=== PATIENT | female | born 1980 | race Caucasian/White ===

== ENCOUNTER 2017-12-25 08:29 | Day surgery (SDC) | payer BC ==
[~2017-12-25 08:29] MED LIST: Lactated Ringers 1,000 ML IV SCH; Sodium Chloride 0.9% 10 ML Syringe FLUSH PRN; Sodium Chloride 0.9% 2.5 ML Syringe FLUSH PRN
--- NOTE | 2017-12-25 09:02 | PCM.PREANE ---
Preanesthetic Assessment - Anesthesia/Transfusion/Family Hx Anesthesia History: Prior Anesthesia Without Reaction Family History of Anesthesia Reaction: No Transfusion History: No Prior Transfusion(s) Intubation History: Unknown - Review of Systems General: No Symptoms Pulmonary: No Symptoms Cardiovascular: No Symptoms Gastrointestinal: No Symptoms Neurological: No Symptoms Other: Reports: None - Physical Assessment Height: 1.75 m Weight: 99.79 kg ASA Class: 2 Mental Status: Alert & Oriented x3 Airway Class: Mallampati = 2 Dentition: Reports: Normal Dentition Thyro-Mental Finger Breadths: 3 Mouth Opening Finger Breadths: 3 ROM/Head Extension: Full Lungs: Clear to Auscultation, Normal Respiratory Effort Cardiovascular: Regular Rate, Regular Rhythm - Allergies Allergies/Adverse Reactions: Allergies Allergy/AdvReac Type Severity Reaction Status Date / Time cephalexin [From Keflex] Allergy Rash Verified 12/22/17 14:29 Sulfa (Sulfonamide Allergy Rash Verified 12/22/17 14:29 Antibiotics) - Blood Blood Available: No - Anesthesia Plan Pre-Op Medication Ordered: None - Acknowledgements Anesthesia Type Planned: General Anesthesia Pt an Appropriate Candidate for the Planned Anesthesia: Yes Alternatives and Risks of Anesthesia Discussed w Pt/Guardian: Yes Pt/Guardian Understands and Agrees with Anesthesia Plan: Yes PreAnesthesia Questionnaire Neurological History: Reports: Other (See Below) Other Neuro History: was in a drug induced coma for a week to correct electrolyte imbalance from water intoxication Endocrine/Metabolic History: Reports: Obesity/BMI 30+, Other (See Below) (h/o hypoglycemic episodes post gastric bypass (glucose levels as low as 30)) - Past Surgical History Head Surgeries/Procedures: Reports: None GI Surgical History: Reports: Bariatric Procedure Musculoskeletal Surgical History: Reports: Other (See Below) Other Musculoskeletal Surgeries/Procedures:: ACL Repair right knee (has screw) plus arthroscopy to repair meniscus tear - SUBSTANCE USE Smoking Status *Q: Never Smoker Recreational Drug Use History: No - HOME MEDS Home Medications: Home Meds Calcium Carbonate [Calcium] 500 mg PO DAILY 12/22/17 [History] Cyanocobalamin (Vitamin B-12) [Vitamin B-12] 100 mcg PO DAILY 12/22/17 [History] PNV95/Ferrous Fumarate/FA [ Tablet] 1 tab PO DAILY 12/22/17 [History] - CURRENT (IN HOUSE) MEDS Current Meds: Current Medications Lactated Ringer's (Ringers, Lactated) 1,000 mls @ 125 mls/hr IV ASDIRECTED DONTE Sodium Chloride (Saline Flush) 10 ml FLUSH ASDIRECTED PRN PRN Reason: Keep Vein Open Sodium Chloride (Saline Flush) 2.5 ml FLUSH ASDIRECTED PRN PRN Reason: Keep Vein Open
[2017-12-25] MEDS ORDERED: Lidocaine 2% 5 ML SDV ONE (09:37)
[2017-12-25] MEDS ORDERED: Propofol 200 MG/20 ML SDV ONE (09:37)
[2017-12-25] MEDS ORDERED: fentaNYL 100 MCG/2 ML SDV ONE ×2 (09:37→10:48)
[2017-12-25] MEDS ORDERED: Midazolam 1 MG/ML 2 ML SDV ONE (09:37)
[2017-12-25] MEDS ORDERED: Carboprost Tromethamine 250 MCG/1 ML Amp ONE (10:40)
[2017-12-25] MEDS ORDERED: Methylergonovine 0.2 MG/1 ML Amp ONE (10:41)
[2017-12-25] MEDS ORDERED: Ondansetron 4 MG/2 ML SDV ONE (10:44)
[2017-12-25] MEDS ORDERED: Morphine 4 MG/ML Syringe IVPUSH PRN (10:55)
[2017-12-25] MEDS ORDERED: Promethazine 25 MG/ML SDV IM PRN (10:55)
[2017-12-25] MEDS ORDERED: Acetaminophen/oxyCODONE 325-5 MG Tab PO PRN ×2 (10:55)
[2017-12-25] MEDS ORDERED: Morphine 2 MG/ML Syringe IVPUSH PRN (10:55)
[2017-12-25] MEDS ORDERED: Ondansetron 4 MG/2 ML SDV IVPUSH PRN (10:55)
[2017-12-25] MEDS ORDERED: Ketorolac 30 MG/ML SDV IVPUSH PRN (10:55)
[2017-12-25] MEDS ORDERED: Ketorolac 30 MG/ML SDV IVPUSH ONE (10:55)
--- NOTE | 2017-12-25 10:58 | PCM.OPNOTE ---
- General Post-Op/Procedure Note Date of Surgery/Procedure: 12/25/17 Operative Procedure(s): D&E Findings: POC Pre Op Diagnosis: blighted ovum Post-Op Diagnosis: Same Anesthesia Technique: General Mask Primary Surgeon: Paul Jimenez Hydropulper: Tiffanie Kirk EBL in mLs: 150 Complications: None Condition: Good
--- NOTE | 2017-12-25 10:59 | PCM.DCSUM1 ---
Discharge Summary - Discharge Data Discharge Date: 12/25/17 Discharge Disposition: Home, Self-Care 01 Condition: Good - Patient Summary/Data Operative Procedure(s) Performed: D&E - Patient Instructions Diet: Usual Diet as Tolerated Activity: As Tolerated Showering/Bathing: March Shower Notify Provider of: Fever, Increased Pain - Discharge Plan Home Medications: Home Meds Calcium Carbonate [Calcium] 500 mg PO DAILY 12/22/17 [History] Cyanocobalamin (Vitamin B-12) [Vitamin B-12] 100 mcg PO DAILY 12/22/17 [History] PNV95/Ferrous Fumarate/FA [ Tablet] 1 tab PO DAILY 12/22/17 [History] - General Info Date of Service: 12/25/17 Functional Status: Reports: Pain Controlled - Review of Systems General: Reports: No Symptoms HEENT: Reports: No Symptoms Pulmonary: Reports: No Symptoms Cardiovascular: Reports: No Symptoms Gastrointestinal: Reports: No Symptoms Genitourinary: Reports: No Symptoms Musculoskeletal: Reports: No Symptoms Skin: Reports: No Symptoms Neurological: Reports: No Symptoms Psychiatric: Reports: No Symptoms - Patient Data Vitals - Most Recent: Last Vital Signs Temp 37.4 C 12/25/17 08:50 Pulse 76 12/25/17 08:50 Resp 16 12/25/17 08:50 BP 113/63 12/25/17 08:50 Pulse Ox 99 12/25/17 08:50 Weight - Most Recent: 99.79 kg Lab Results - Last 24 hrs: Laboratory Results - last 24 hr 12/25/17 12/25/17 Range/Units 09:00 09:00 WBC 6.93 (4.0-11.0) K/uL RBC 4.92 (4.30-5.90) M/uL Hgb 14.1 (12.0-16.0) g/dL Hct 42.0 (36.0-46.0) % MCV 85.4 (80.0-98.0) fL MCH 28.7 (27.0-32.0) pg MCHC 33.6 (31.0-37.0) g/dL RDW Std Deviation 49.6 (28.0-62.0) fl RDW Coeff of Ga 16 H (11.0-15.0) % Plt Count 320 (150-400) K/uL MPV 9.90 (7.40-12.00) fL Nucleated RBC % 0.0 /100WBC Nucleated RBCs # 0 K/uL Blood Type O POSITIVE Antibody Screen NEGATIVE Med Orders - Current: Current Medications Lactated Ringer's (Ringers, Lactated) 1,000 mls @ 125 mls/hr IV ASDIRECTED DONTE Ketorolac Tromethamine (Toradol) 30 mg IVPUSH ONETIME ONE Stop: 12/25/17 10:56 Ketorolac Tromethamine (Toradol) 30 mg IVPUSH Q6H PRN PRN Reason: Pain (severe 7-10) Stop: 12/30/17 10:55 Morphine Sulfate (Morphine) 2 mg IVPUSH Q2H PRN PRN Reason: Pain (severe 7-10) Morphine Sulfate (Morphine) 4 mg IVPUSH Q2H PRN PRN Reason: Pain (severe 7-10) Ondansetron HCl (Zofran) 4 mg IVPUSH Q6H PRN PRN Reason: Nausea/Vomiting Oxycodone/Acetaminophen (Percocet 325-5 Mg) 1 tab PO Q4H PRN PRN Reason: Pain (moderate 4-6) Oxycodone/Acetaminophen (Percocet 325-5 Mg) 2 tab PO Q4H PRN PRN Reason: Pain (moderate 4-6) Promethazine HCl (Phenergan) 25 mg IM Q6H PRN PRN Reason: Nausea/Vomiting Sodium Chloride (Saline Flush) 10 ml FLUSH ASDIRECTED PRN PRN Reason: Keep Vein Open Sodium Chloride (Saline Flush) 2.5 ml FLUSH ASDIRECTED PRN PRN Reason: Keep Vein Open Discontinued Medications Carboprost Tromethamine (Hemabate Ds) Confirm Administered Dose 250 mcg .ROUTE .STK-MED ONE Stop: 12/25/17 10:41 Fentanyl (Sublimaze) Confirm Administered Dose 100 mcg .ROUTE .STK-MED ONE Stop: 12/25/17 09:38 Fentanyl (Sublimaze) Confirm Administered Dose 100 mcg .ROUTE .STK-MED ONE Stop: 12/25/17 10:49 Lidocaine (Xylocaine-Mpf 2%) Confirm Administered Dose 5 ml .ROUTE .STK-MED ONE Stop: 12/25/17 09:38 Methylergonovine Maleate (Methergine) Confirm Administered Dose 0.2 mg .ROUTE .STK-MED ONE Stop: 12/25/17 10:42 Midazolam HCl (Versed 1 Mg/Ml) Confirm Administered Dose 2 mg .ROUTE .STK-MED ONE Stop: 12/25/17 09:38 Ondansetron HCl (Zofran) Confirm Administered Dose 4 mg .ROUTE .STK-MED ONE Stop: 12/25/17 10:45 Propofol (Diprivan 20 Ml) Confirm Administered Dose 200 mg .ROUTE .STK-MED ONE Stop: 12/25/17 09:38 - Exam General: Reports: Alert, Oriented HEENT: Reports: Pupils Equal, Pupils Reactive, EOMI, Mucous Membr. Moist/[place] Neck: Reports: Supple Lungs: Reports: Clear to Auscultation, Normal Respiratory Effort Cardiovascular: Reports: Regular Rate, Regular Rhythm GI/Abdominal Exam: Normal Bowel Sounds, Soft, Non-Tender, No Organomegaly, No Distention, No Abnormal Bruit, No Mass, Pelvis Stable (Female) Exam: Normal External Exam, Normal Speculum Exam, Normal Bimanual Exam Rectal (Female) Exam: Normal Exam, Normal Rectal Tone Back Exam: Reports: Normal Inspection, Full Range of Motion Extremities: Normal Inspection, Normal Range of Motion, Non-Tender, No Pedal Edema, Normal Capillary Refill Skin: Reports: Warm, Dry, Intact Wound/Incisions: Reports: Healing Well Neurological: Reports: No New Focal Deficit Psy/Mental Status: Reports: Alert, Normal Affect, Normal Mood *Q Meaningful Use (DIS) - VTE *Q VTE Criteria *Q: - Stroke *Q Stroke Criteria *Q: - AMI *Q AMI Criteria *Q:
--- NOTE | 2017-12-25 11:22 | PCM.POSTAN ---
POST ANESTHESIA ASSESSMENT - MENTAL STATUS Mental Status: Alert, Oriented - RESPIRATORY Respiratory Status: Respiratory Rate WNL, Airway Patent, O2 Saturation Stable - CARDIOVASCULAR CV Status: Pulse Rate WNL, Blood Pressure Stable - GASTROINTESTINAL GI Status: No Symptoms - PAIN Pain Score: 1 - POST OP HYDRATION Hydration Status: Adequate & Stable - OBSERVATIONS Free Text/Narrative:: no anesthesia problems
--- NOTE | 2017-12-25 15:38 | OR ---
SURGEON: Paul Jimenez MD DATE OF PROCEDURE: PREOPERATIVE DIAGNOSIS: Blighted ovum. POSTOPERATIVE DIAGNOSES: Blighted ovum. OPERATION PERFORMED: Dilatation and evacuation. ICT TRAINER: ARVIND Kuo ANESTHESIA: Mask and general. ESTIMATED BLOOD LOSS: 100 mL. COMPLICATIONS: None. FINDINGS: Products of conception. INDICATION FOR SURGERY: [place] referred to the admit note. This patient had a repeated ultrasound which shows pole with no cardiac activity. The patient has diagnosis of blighted ovum. She is admitted for dilatation and evacuation. PROCEDURE: The patient brought to the OR, properly identified, and after adequate level of mask anesthesia, the patient was placed in lithotomy position, prepped and draped in sterile fashion as usual. A weighted speculum placed in the vagina and straight catheter was used to enter the bladder. The single-tooth tenaculum was applied to the cervix and the cervix sequentially dilated to accommodate #8 cannula. The cannula was placed in the endometrial cavity and then hooked to suction and suction curettage was performed evacuating all products of conception. After that, using a medium-sized curette, the endometrial cavity curetted uniformly and completely making sure that all products of conception were removed. Once we did that and then re-suctioning of the endometrial cavity from remaining blood clot and at this time the procedure ended. The instrument and sponge count was correct. The patient tolerated the procedure well went to recovery room in stable general condition. JESSIE / BERTHA /[id number]
== END 2017-12-25 12:45 | disposition home or self-care (01) ==
LOC: MW.SDS 08:29
PROVIDERS: ATTEND Obstetrics & Gynecology
DX: O02.0 Blighted ovum and nonhydatidiform mole (principal); E66.9 Obesity, unspecified; Z79.899 Other long term (current) drug therapy; Z88.2 Allergy status to sulfonamides; Z88.1 Allergy status to other antibiotic agents; Z98.84 Bariatric surgery status; Z68.32 Body mass index [BMI] 32.0-32.9, adult
CPT/HCPCS: 36415; 59820; 85027; 86850; 86900; 86901; A9270; J2250; J2270; J2405; J3010; J7120; 01965; 88305; J2210; J2704

== ENCOUNTER 2019-02-14 21:21 | Inpatient (IN) | payer BC, OTHER ==
[2019-02-14] MEDS ORDERED: Terbutaline 1 MG/ML SDV SUBCUT PRN (22:17)
[2019-02-14] MEDS ORDERED: Misoprostol 200 MCG Tab PO PRN (22:17)
[2019-02-14] MEDS ORDERED: Carboprost Tromethamine 250 MCG/1 ML Amp IM PRN (22:17)
[2019-02-14] MEDS ORDERED: Tranexamic Acid 1,000 MG in Sodium Chloride 0.9% 100 ML IV PRN (22:17)
[2019-02-14] MEDS ORDERED: Ondansetron 4 MG/2 ML SDV IV PRN (22:17)
[2019-02-14] MEDS ORDERED: Methylergonovine 0.2 MG/1 ML Amp IM PRN (22:17)
[2019-02-14] MEDS ORDERED: Sodium Chloride 0.9% 10 ML SDV IV PRN (22:17)
[2019-02-14] MEDS ORDERED: Water For Irrigation,Sterile 1,000 ML Container IRR PRN (22:17)
[2019-02-14] MEDS ORDERED: Nalbuphine 10 MG/1 ML Vial IVPUSH PRN (22:17)
[2019-02-14] MEDS ORDERED: Misoprostol 25 MCG (1/4 of 100 MCG) Tab VAG PRN (22:17)
[2019-02-14] MEDS ORDERED: Lidocaine 1% 50 ML MDV INJECT PRN (22:17)
[2019-02-14] MEDS ORDERED: Sodium Chloride 0.9% 10 ML Syringe FLUSH PRN (22:17)
[2019-02-14] MEDS ORDERED: Oxytocin/0.9 % Sodium Chloride 30 UNIT/500 ML BAG IV SCH ×2 (22:30)
[2019-02-14] MEDS: Misoprostol 25 MCG (1/4 of 100 MCG) Tab PO SCH (23:27)
[2019-02-14] MEDS: Misoprostol 25 MCG (1/4 of 100 MCG) Tab VAG PRN (23:27)
[2019-02-15] MEDS: Misoprostol 25 MCG (1/4 of 100 MCG) Tab PO SCH (03:35)
[2019-02-15] MEDS: Misoprostol 25 MCG (1/4 of 100 MCG) Tab VAG PRN (03:36)
[2019-02-15] MEDS: Lactated Ringers 1,000 ML IV SCH ×2 (04:40→08:20)
[2019-02-15] MEDS ORDERED: Lidocaine HCl/EPINEPHrine 5 ML IJ ONE (06:49)
--- NOTE | 2019-02-15 06:56 | PCM.LDHP ---
L&D History of Present Illness - General Date of Service: 02/15/19 Admit Problem/Dx: Patient Status Order with Admit Dx/Problem 02/14/19 22:17 Patient Status [ADT] Routine Admission Diagnosis/Problem Admission Diagnosis/Problem -related examination 02/15/19 06:53 VariZIG Source of Information: Patient History Limitations: Reports: No Limitations - History of Present Illness Pain Score: 8 Improves with: Reports: None Worsens with: Reports: None Associated Symptoms: Reports: N - Related Data Allergies/Adverse Reactions: Allergies Allergy/AdvReac Type Severity Reaction Status Date / Time cephalexin [From Keflex] Allergy Rash Verified 12/22/17 14:29 Sulfa (Sulfonamide Allergy Rash Verified 12/22/17 14:29 Antibiotics) Home Medications: Home Meds Calcium Carbonate [Calcium] 500 mg PO DAILY 12/22/17 [History] Cyanocobalamin (Vitamin B-12) [Vitamin B-12] 100 mcg PO DAILY 12/22/17 [History] PNV95/Ferrous Fumarate/FA [ Tablet] 1 tab PO DAILY 12/22/17 [History] Past Medical History - Past Health History Medical/Surgical History: Denies Medical/Surgical History 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: Reports: , Spontaneous Neurological History: Reports: Other (See Below) Other Neuro History: was in a drug induced coma for a week to correct electrolyte imbalance from water intoxication Psychiatric History: Reports: Depression Endocrine/Metabolic History: Reports: Obesity/BMI 30+, Other (See Below) - Past Surgical History Head Surgeries/Procedures: Reports: None GI Surgical History: Reports: Bariatric Procedure Musculoskeletal Surgical History: Reports: Other (See Below) Other Musculoskeletal Surgeries/Procedures:: ACL Repair right knee (has screw) plus arthroscopy to repair meniscus tear Social & Family History - Family History Family Medical History: Noncontributory - Tobacco Use Smoking Status *Q: Never Smoker Second Hand Smoke Exposure: No - Recreational Drug Use Recreational Drug Use: No H&P Review of Systems - Review of Systems: Review Of Systems: See Below General: Reports: No Symptoms HEENT: Reports: No Symptoms Pulmonary: Reports: No Symptoms Cardiovascular: Reports: No Symptoms Gastrointestinal: Reports: No Symptoms Genitourinary: Reports: No Symptoms Musculoskeletal: Reports: No Symptoms Skin: Reports: No Symptoms Psychiatric: Reports: No Symptoms Neurological: Reports: No Symptoms Hematologic/Lymphatic: Reports: No Symptoms Immunologic: Reports: No Symptoms L&D Exam - Exam Exam: See Below - Vital Signs Weight: 122.47 kg - OB Specific Contraction Intensity: Moderate to Strong Movement: Active Heart Tones: Present Heart Tones per Min: 130 Heart Rate (FHR) Variability: Moderate (6-25 bmp) Presentation: Vertex - Red Score Red Score Cervix Position: Midposition Red Score Consistency: Soft Red Score Effacement: 51-70% Red Score Dilation: 3-4 cm Red Score 's Station: -2 Red Score Total: 8 - Exam General: Alert, Oriented HEENT: Hearing Intact Lungs: Clear to Auscultation, Normal Respiratory Effort Cardiovascular: Regular Rate, Regular Rhythm, Normal S1, Normal S2 GI/Abdominal Exam: Soft, Non-Tender Rectal Exam: Deferred Genitourinary: Normal external exam, Cervical dilitation. No: Cervical fluid, Vaginal bleeding Back Exam: Normal Inspection, Full Range of Motion Extremities: Normal Inspection, Normal Range of Motion, Non-Tender Skin: Warm, Dry, Intact Neurological: Cranial Nerves Intact, Reflexes Equal Bilateral, Strength Equal Bilateral, Normal Speech, Normal Tone, Sensation Intact Psychiatric: Alert, Normal Affect, Normal Mood - Patient Data Lab Results Last 24 hrs: Laboratory Results - last 24 hr 02/14/19 02/14/19 Range/Units 22:33 22:33 WBC 9.29 (4.0-11.0) K/uL RBC 4.30 (4.30-5.90) M/uL Hgb 13.2 (12.0-16.0) g/dL Hct 38.7 (36.0-46.0) % MCV 90.0 (80.0-98.0) fL MCH 30.7 (27.0-32.0) pg MCHC 34.1 (31.0-37.0) g/dL RDW Std Deviation 43.5 (28.0-62.0) fl RDW Coeff of Ga 13 (11.0-15.0) % Plt Count 252 (150-400) K/uL MPV 10.80 (7.40-12.00) fL Nucleated RBC % 0.0 /100WBC Nucleated RBCs # 0 K/uL Blood Type O POSITIVE Antibody Screen NEGATIVE Result Diagrams: 02/14/19 22:33 - Problem List (1) Supervision of normal IUP (intrauterine ) in multigravida SNOMED Code(s): 064835987, 208794723, 251032521 ICD Code: Z34.80 - ENCOUNTER FOR SUPRVSN OF NORMAL , UNSP TRIMESTER Status: Acute Priority: High Current Visit: Yes Qualifiers: Trimester: third trimester Qualified Code(s): Z34.83 - Encounter for supervision of other normal , third trimester (2) AMA (advanced maternal age) multigravida 35+ SNOMED Code(s): 047642524 ICD Code: O09.529 - SUPERVISION OF ELDERLY MULTIGRAVIDA, UNSPECIFIED TRIMESTER Status: Acute Priority: High Current Visit: Yes Qualifiers: Trimester: third trimester Qualified Code(s): O09.523 - Supervision of elderly multigravida, third trimester Problem List Initiated/Reviewed/Updated: Yes Orders Last 24hrs: Active Orders 24 hr Category Date Time Status Patient Status [ADT] Routine ADT 02/14/19 22:17 Active Bedrest Bathroom Privileges [RC] ASDIRECTED Care 02/14/19 22:17 Active Communication Order [RC] ASDIRECTED Care 02/14/19 22:17 Active Communication Order [RC] ASDIRECTED Care 02/14/19 22:17 Active Communication Order [RC] ASDIRECTED Care 02/14/19 22:17 Active Heart Tones [RC] CONTINUOUS Care 02/14/19 22:17 Active Non Stress Test [RC] PER UNIT ROUTINE Care 02/14/19 22:17 Active May Shower [RC] ASDIRECTED Care 02/14/19 22:17 Active Notify Provider [RC] PRN Care 02/14/19 22:17 Active Notify Provider [RC] PRN Care 02/14/19 22:17 Active Notify Provider [RC] PRN Care 02/14/19 22:17 Active Notify Provider [RC] STAT Care 02/14/19 22:17 Active Oxygen Therapy [RC] ASDIRECTED Care 02/14/19 22:17 Active Up ad Raven [RC] ASDIRECTED Care 02/14/19 22:17 Active Vaginal Exam [RC] PRN Care 02/14/19 22:17 Active Vaginal Exam [RC] PRN Care 02/14/19 22:17 Active Vital Signs [RC] PER UNIT ROUTINE Care 02/14/19 22:17 Active Vital Signs [RC] PER UNIT ROUTINE Care 02/14/19 22:17 Active Regular Diet [DIET] Diet 02/15/19 Breakfast Active Carboprost Tromethamine [Hemabate DS] Med 02/14/19 22:17 Active 250 mcg IM ASDIRECTED PRN Lactated Ringers [Ringers, Lactated] 1,000 ml Med 02/14/19 22:30 Active IV ASDIRECTED Lidocaine 1% [Xylocaine 1%] Med 02/14/19 22:17 Active 50 ml INJECT ONETIME PRN Methylergonovine [Methergine] Med 02/14/19 22:17 Active 0.2 mg IM ASDIRECTED PRN Nalbuphine [Nubain] Med 02/14/19 22:17 Active 10 mg IVPUSH Q1H PRN Ondansetron [Zofran] Med 02/14/19 22:17 Active 4 mg IV Q4H PRN Oxytocin/0.9 % Sodium Chloride [Oxytocin 30 Unit/500 ML Med 02/14/19 22:30 Active -NS] 30 unit in 500 ml IV TITRATE Oxytocin/0.9 % Sodium Chloride [Oxytocin 30 Unit/500 ML Med 02/14/19 22:30 Active -NS] 30 unit in 500 ml IV TITRATE Sodium Chloride 0.9% [Normal Saline] Med 02/14/19 22:17 Active 10 ml IV ASDIRECTED PRN Sodium Chloride 0.9% [Saline Flush] Med 02/14/19 22:17 Active 10 ml FLUSH ASDIRECTED PRN Terbutaline [Brethine] Med 02/14/19 22:17 Active 0.25 mg SUBCUT ASDIRECTED PRN Tranexamic Acid [Cyklokapron] 1,000 mg Med 02/14/19 22:17 Active Sodium Chloride 0.9% [Normal Saline] 100 ml IV ONETIME Water For Irrigation,Sterile [Sterile Water for Med 02/14/19 22:17 Active Irrigation] 1,000 ml IRR ASDIRECTED PRN miSOPROStol [Cytotec] Med 02/14/19 22:17 Active 200 mcg PO ONETIME PRN miSOPROStol [Cytotec] Med 02/14/19 23:00 Active 25 mcg PO Q4H miSOPROStol [Cytotec] Med 02/14/19 22:17 Active 25 mcg VAG ONETIME PRN miSOPROStol [Cytotec] Med 02/14/19 22:17 Active 25 mcg VAG Q4H PRN Scalp Electrode [WOMSER] Per Unit Routine Oth 02/14/19 22:17 Ordered Medication Administration Instruction [OM.PC] Q3H Oth 02/14/19 22:30 Ordered Peripheral IV Insertion Adult [OM.PC] Routine Oth 02/14/19 22:17 Ordered Resuscitation Status Routine Resus Stat 02/14/19 22:17 Ordered Medication Orders Carboprost Tromethamine (Hemabate Ds) 250 mcg IM ASDIRECTED PRN PRN Reason: Post Hemorrhage Lactated Ringer's (Ringers, Lactated) 1,000 mls @ 150 mls/hr IV ASDIRECTED DONTE Last Admin: 02/15/19 04:40 Dose: 150 mls/hr Oxytocin/Sodium Chloride (Oxytocin 30 Unit/500 Ml-Ns) 30 unit in 500 mls @ 999 mls/hr IV TITRATE DONTE Oxytocin/Sodium Chloride (Oxytocin 30 Unit/500 Ml-Ns) 30 unit in 500 mls @ 2 mls/hr IV TITRATE DONTE; Protocol Tranexamic Acid 1,000 mg/ (Sodium Chloride) 110 mls @ 660 mls/hr IV ONETIME PRN PRN Reason: Bleeding Lidocaine HCl (Xylocaine 1%) 50 ml INJECT ONETIME PRN PRN Reason: Laceration repair Methylergonovine Maleate (Methergine) 0.2 mg IM ASDIRECTED PRN PRN Reason: Post Hemorrhage Misoprostol (Cytotec) 200 mcg PO ONETIME PRN PRN Reason: Post Hemorrhage Misoprostol (Cytotec) 25 mcg VAG ONETIME PRN PRN Reason: Cervical Ripening Last Admin: 02/14/19 23:27 Dose: 25 mcg Misoprostol (Cytotec) 25 mcg VAG Q4H PRN PRN Reason: Cervical Ripening Last Admin: 02/15/19 03:36 Dose: 25 mcg Misoprostol (Cytotec) 25 mcg PO Q4H DONTE Last Admin: 02/15/19 03:35 Dose: 25 mcg Admin: 02/14/19 23:27 Dose: 25 mcg Nalbuphine HCl (Nubain) 10 mg IVPUSH Q1H PRN PRN Reason: Pain (severe 7-10) Last Admin: 02/15/19 05:10 Dose: 10 mg Ondansetron HCl (Zofran) 4 mg IV Q4H PRN PRN Reason: Nausea/Vomiting Sodium Chloride (Saline Flush) 10 ml FLUSH ASDIRECTED PRN PRN Reason: Keep Vein Open Last Admin: 02/14/19 22:33 Dose: 10 ml Sodium Chloride (Normal Saline) 10 ml IV ASDIRECTED PRN PRN Reason: IV Use Sterile Water (Sterile Water For Irrigation) 1,000 ml IRR ASDIRECTED PRN PRN Reason: delivery Terbutaline Sulfate (Brethine) 0.25 mg SUBCUT ASDIRECTED PRN PRN Reason: Tacysystole Assessment/Plan Comment:: GLORIA A: Reji P: Admit, epidural now, anticipate . Dr Jimenez updated
--- NOTE | 2019-02-15 07:14 | PCM.PREANE ---
Preanesthetic Assessment - Anesthesia/Transfusion/Family Hx Anesthesia History: Prior Anesthesia Without Reaction Family History of Anesthesia Reaction: No Transfusion History: No Prior Transfusion(s) Intubation History: Unknown - Review of Systems General: No Symptoms Pulmonary: No Symptoms Cardiovascular: No Symptoms Gastrointestinal: No Symptoms Neurological: No Symptoms Other: Reports: None - Physical Assessment Height: 5 ft 9 in Weight: 122.47 kg ASA Class: 2 Mental Status: Alert & Oriented x3 Airway Class: Mallampati = 2 Dentition: Reports: Normal Dentition ROM/Head Extension: Full Lungs: Clear to Auscultation, Normal Respiratory Effort Cardiovascular: Regular Rate, Regular Rhythm - Lab Values: Laboratory Last Values WBC 9.29 K/uL (4.0-11.0) 02/14/19 22: RBC 4.30 M/uL (4.30-5.90) 02/14/19 22: Hgb 13.2 g/dL (12.0-16.0) 02/14/19 22: Hct 38.7 % (36.0-46.0) 02/14/19 22: MCV 90.0 fL (80.0-98.0) 02/14/19 22: MCH 30.7 pg (27.0-32.0) 02/14/19 22: MCHC 34.1 g/dL (31.0-37.0) 02/14/19 22:33 RDW Std Deviation 43.5 fl (28.0-62.0) 02/14/19 22:33 RDW Coeff of Ga 13 % (11.0-15.0) 02/14/19 22: Plt Count 252 K/uL (150-400) 02/14/19 22: MPV 10.80 fL (7.40-12.00) 02/14/19 22: Nucleated RBC % 0.0 /100WBC 02/14/19: Nucleated RBCs # 0 K/uL 02/14/19 22:33 Blood Type O POSITIVE 02/14/19 22:33 Antibody Screen NEGATIVE 02/14/19 22:33 - Allergies Allergies/Adverse Reactions: Allergies Allergy/AdvReac Type Severity Reaction Status Date / Time cephalexin [From Keflex] Allergy Rash Verified 12/22/17 14:29 Sulfa (Sulfonamide Allergy Rash Verified 12/22/17 14:29 Antibiotics) - Acknowledgements Anesthesia Type Planned: Epidural Pt an Appropriate Candidate for the Planned Anesthesia: Yes Alternatives and Risks of Anesthesia Discussed w Pt/Guardian: Yes Pt/Guardian Understands and Agrees with Anesthesia Plan: Yes PreAnesthesia Questionnaire - Past Health History Medical/Surgical History: Denies Medical/Surgical History HEENT History: Reports: None Cardiovascular History: Reports: None Respiratory History: Reports: None Gastrointestinal History: Reports: GERD Genitourinary History: Reports: None SKETCHER History: Reports: , Spontaneous : 3 Para: 1 LMP (Approximate): Musculoskeletal History: Reports: None Neurological History: Reports: Other (See Below) Other Neuro History: was in a drug induced coma for a week to correct electrolyte imbalance from water intoxication Psychiatric History: Reports: Depression Endocrine/Metabolic History: Reports: Obesity/BMI 30+, Other (See Below) Hematologic History: Reports: None Immunologic History: Reports: None Oncologic (Cancer) History: Reports: None Dermatologic History: Reports: None - Infectious Disease History Infectious Disease History: Reports: None - Past Surgical History Head Surgeries/Procedures: Reports: None GI Surgical History: Reports: Bariatric Procedure Musculoskeletal Surgical History: Reports: Other (See Below) Other Musculoskeletal Surgeries/Procedures:: ACL Repair right knee (has screw) plus arthroscopy to repair meniscus tear - SUBSTANCE USE Smoking Status *Q: Never Smoker Second Hand Smoke Exposure: No Recreational Drug Use History: No - HOME MEDS Home Medications: Home Meds Calcium Carbonate [Calcium] 500 mg PO DAILY 12/22/17 [History] Cyanocobalamin (Vitamin B-12) [Vitamin B-12] 100 mcg PO DAILY 12/22/17 [History] PNV95/Ferrous Fumarate/FA [ Tablet] 1 tab PO DAILY 12/22/17 [History] - CURRENT (IN HOUSE) MEDS Current Meds: Current Medications Carboprost Tromethamine (Hemabate Ds) 250 mcg IM ASDIRECTED PRN PRN Reason: Post Hemorrhage Lactated Ringer's (Ringers, Lactated) 1,000 mls @ 150 mls/hr IV ASDIRECTED DONTE Last Admin: 02/15/19 04:40 Dose: 150 mls/hr Oxytocin/Sodium Chloride (Oxytocin 30 Unit/500 Ml-Ns) 30 unit in 500 mls @ 999 mls/hr IV TITRATE DONTE Oxytocin/Sodium Chloride (Oxytocin 30 Unit/500 Ml-Ns) 30 unit in 500 mls @ 2 mls/hr IV TITRATE DONET; Protocol Tranexamic Acid 1,000 mg/ (Sodium Chloride) 110 mls @ 660 mls/hr IV ONETIME PRN PRN Reason: Bleeding Lidocaine HCl (Xylocaine 1%) 50 ml INJECT ONETIME PRN PRN Reason: Laceration repair Methylergonovine Maleate (Methergine) 0.2 mg IM ASDIRECTED PRN PRN Reason: Post Hemorrhage Misoprostol (Cytotec) 200 mcg PO ONETIME PRN PRN Reason: Post Hemorrhage Misoprostol (Cytotec) 25 mcg VAG ONETIME PRN PRN Reason: Cervical Ripening Last Admin: 02/14/19 23:27 Dose: 25 mcg Misoprostol (Cytotec) 25 mcg VAG Q4H PRN PRN Reason: Cervical Ripening Last Admin: 02/15/19 03:36 Dose: 25 mcg Misoprostol (Cytotec) 25 mcg PO Q4H DONTE Last Admin: 02/15/19 03:35 Dose: 25 mcg Nalbuphine HCl (Nubain) 10 mg IVPUSH Q1H PRN PRN Reason: Pain (severe 7-10) Last Admin: 02/15/19 05:10 Dose: 10 mg Ondansetron HCl (Zofran) 4 mg IV Q4H PRN PRN Reason: Nausea/Vomiting Sodium Chloride (Saline Flush) 10 ml FLUSH ASDIRECTED PRN PRN Reason: Keep Vein Open Last Admin: 02/14/19 22:33 Dose: 10 ml Sodium Chloride (Normal Saline) 10 ml IV ASDIRECTED PRN PRN Reason: IV Use Sterile Water (Sterile Water For Irrigation) 1,000 ml IRR ASDIRECTED PRN PRN Reason: delivery Terbutaline Sulfate (Brethine) 0.25 mg SUBCUT ASDIRECTED PRN PRN Reason: Tacysystole Discontinued Medications Fentanyl/Bupivacaine HCl (Fichsxox-Oxhdi-Gs 2 Mcg/Ml-0.125%) Confirm Administered Dose 100 mls @ as directed .ROUTE .STK-MED ONE Stop: 02/15/19 06:50 Lidocaine/Epinephrine (Lidocaine 1.5%-Epi 1:200,000) Confirm Administered Dose 5 ml IJ .STK-MED ONE Stop: 02/15/19 06:50
--- NOTE | 2019-02-15 15:35 | PCM.DEL ---
L & D Note - General Info Date of Service: 02/15/19 Mother's Due Date: 02/19/19 - Delivery Note Labor: Induced by Oxytocin Cervical Ripening Method: Misoprostil Delivery Outcome: Livebirth Infant Delivery Method: Spontaneous Vaginal Delivery-Single Delivery Mode: Spontaneous Presentation: Vertex Nuchal Cord: None Anesthesia Type: Epidural Amniotic Fluid Description: Clear Episiotomy Type: None Laceration: None Placenta: Intact, Spontaneous Cord: 3 Vessels Estimated Blood Loss: 200 Resuscitation Needed: No : Bulb Syringe, Stimulated Score 1 min: 8 Score 5 min: 9 Second Stage Interventions: Reports: Encouragement Given, Pushing Effectively Delivery Comments (Free Text/Narrative):: viable male, head delivered with good pushing, shoulders and body followed easily after, baby to mom's abdomen with nurse at bedside for assessment, cord doubly clamped and cut at 1 minute by FOB, baby to warmer with nurse for further assessment, APGARs 8/9, wt. 9 lb 14 oz, placenta delivered grossly intact, 3VC, EBL 200 mL, intact perineum, fundus firm, mom and baby left in stable condition with nurse at bedside Induction Criteria - Red Score Red Score Dilation: 1-2 cm Red Score Effacement: 40-50% Red Score Infant's Station: -2 Red Score Consistency: Soft Red Score Cervix Position: Posterior Red Score Total: 5 Red Score Presenting Part: Reports: Cephalic - Induction Gestational Age >/= 39 wks: Yes Estimated Pelvis: Reports: Adequate Reassuring Monitoring Strip: Yes Absence of Tachy Systole: Yes - General Info Date of Service: 02/15/19 Admission Dx/Problem (Free Text): Patient Status Order with Admit Dx/Problem 02/14/19 22:17 Patient Status [ADT] Routine Admission Diagnosis/Problem Admission Diagnosis/Problem -related examination 02/15/19 06:53 VariZIG Functional Status: Reports: Pain Controlled - Review of Systems General: Reports: No Symptoms HEENT: Reports: No Symptoms Pulmonary: Reports: No Symptoms Cardiovascular: Reports: No Symptoms Gastrointestinal: Reports: No Symptoms Genitourinary: Reports: No Symptoms Musculoskeletal: Reports: No Symptoms Skin: Reports: No Symptoms Neurological: Reports: No Symptoms Psychiatric: Reports: No Symptoms - Patient Data Weight - Most Recent: 122.47 kg Lab Results Last 24 Hours: Laboratory Results - last 24 hr 02/14/19 02/14/19 Range/Units 22:33 22:33 WBC 9.29 (4.0-11.0) K/uL RBC 4.30 (4.30-5.90) M/uL Hgb 13.2 (12.0-16.0) g/dL Hct 38.7 (36.0-46.0) % MCV 90.0 (80.0-98.0) fL MCH 30.7 (27.0-32.0) pg MCHC 34.1 (31.0-37.0) g/dL RDW Std Deviation 43.5 (28.0-62.0) fl RDW Coeff of Ga 13 (11.0-15.0) % Plt Count 252 (150-400) K/uL MPV 10.80 (7.40-12.00) fL Nucleated RBC % 0.0 /100WBC Nucleated RBCs # 0 K/uL Blood Type O POSITIVE Antibody Screen NEGATIVE Med Orders - Current: Current Medications Carboprost Tromethamine (Hemabate Ds) 250 mcg IM ASDIRECTED PRN PRN Reason: Post Hemorrhage Lactated Ringer's (Ringers, Lactated) 1,000 mls @ 150 mls/hr IV ASDIRECTED DONTE Last Admin: 02/15/19 08:20 Dose: 150 mls/hr Oxytocin/Sodium Chloride (Oxytocin 30 Unit/500 Ml-Ns) 30 unit in 500 mls @ 999 mls/hr IV TITRATE DONTE Oxytocin/Sodium Chloride (Oxytocin 30 Unit/500 Ml-Ns) 30 unit in 500 mls @ 2 mls/hr IV TITRATE DONTE; Protocol Last Titration: 02/15/19 11:30 Dose: 6 munits/min, 6 mls/hr Tranexamic Acid 1,000 mg/ (Sodium Chloride) 110 mls @ 660 mls/hr IV ONETIME PRN PRN Reason: Bleeding Lidocaine HCl (Xylocaine 1%) 50 ml INJECT ONETIME PRN PRN Reason: Laceration repair Methylergonovine Maleate (Methergine) 0.2 mg IM ASDIRECTED PRN PRN Reason: Post Hemorrhage Misoprostol (Cytotec) 200 mcg PO ONETIME PRN PRN Reason: Post Hemorrhage Misoprostol (Cytotec) 25 mcg VAG ONETIME PRN PRN Reason: Cervical Ripening Last Admin: 02/14/19 23:27 Dose: 25 mcg Misoprostol (Cytotec) 25 mcg VAG Q4H PRN PRN Reason: Cervical Ripening Last Admin: 02/15/19 03:36 Dose: 25 mcg Misoprostol (Cytotec) 25 mcg PO Q4H DONTE Last Admin: 02/15/19 03:35 Dose: 25 mcg Nalbuphine HCl (Nubain) 10 mg IVPUSH Q1H PRN PRN Reason: Pain (severe 7-10) Last Admin: 02/15/19 05:10 Dose: 10 mg Ondansetron HCl (Zofran) 4 mg IV Q4H PRN PRN Reason: Nausea/Vomiting Sodium Chloride (Saline Flush) 10 ml FLUSH ASDIRECTED PRN PRN Reason: Keep Vein Open Last Admin: 02/14/19 22:33 Dose: 10 ml Sodium Chloride (Normal Saline) 10 ml IV ASDIRECTED PRN PRN Reason: IV Use Sterile Water (Sterile Water For Irrigation) 1,000 ml IRR ASDIRECTED PRN PRN Reason: delivery Terbutaline Sulfate (Brethine) 0.25 mg SUBCUT ASDIRECTED PRN PRN Reason: Tacysystole Discontinued Medications Fentanyl/Bupivacaine HCl (Pezxqhzn-Qlrjj-Oz 2 Mcg/Ml-0.125%) Confirm Administered Dose 100 mls @ as directed .ROUTE .STK-MED ONE Stop: 02/15/19 06:50 Fentanyl/Bupivacaine HCl (Linuvumm-Zwmnu-Nx 2 Mcg/Ml-0.125%) Confirm Administered Dose 100 mls @ as directed .ROUTE .STK-MED ONE Stop: 02/15/19 13:02 Lidocaine/Epinephrine (Lidocaine 1.5%-Epi 1:200,000) Confirm Administered Dose 5 ml IJ .STK-MED ONE Stop: 02/15/19 06:50 - Exam General: Alert, Oriented, Cooperative, No Acute Distress Lungs: Normal Respiratory Effort GI/Abdominal Exam: Soft, Non-Tender (Female) Exam: Normal External Exam, Vaginal Bleeding Back Exam: Full Range of Motion Extremities: Normal Inspection, Pedal Edema Skin: Warm, Dry, Intact Neurological: No New Focal Deficit, Normal Speech, Normal Tone Psy/Mental Status: Alert, Normal Affect, Normal Mood - Problem List & Annotations (1) (normal spontaneous vaginal delivery) SNOMED Code(s): 08520527 Code(s): O80 - ENCOUNTER FOR FULL-TERM UNCOMPLICATED DELIVERY Status: Acute Priority: High Current Visit: Yes - Problem List Review Problem List Initiated/Reviewed/Updated: Yes - Plan Plan:: IOL A: VariZIG P: Admit, epidural now, anticipate . Dr Jimenez updated Labor A: viable male, APGARs 8/9, wt. 9 lb 14 oz., placenta delivered grossly intact, 3VC, EBL 200 mL, perineum intact, fundus firm, mom and baby left in stable condition with nurse at bedside, Dr. Jimenez updated P: Routine plan of care
[2019-02-15] MEDS ORDERED: Witch Hazel Medicated Pads 40/Jar TOP PRN (16:31)
[2019-02-15] MEDS ORDERED: Ibuprofen 400 MG Tab PO PRN (16:31)
[2019-02-15] MEDS ORDERED: Bisacodyl 10 MG Supp RECTAL PRN (16:31)
[2019-02-15] MEDS ORDERED: Benzocaine/Menthol 20%-0.5% Spray 78 GM Cannister TOP PRN (16:31)
[2019-02-15] MEDS ORDERED: Docusate Sodium 100 MG Cap PO PRN (16:31)
[2019-02-15] MEDS ORDERED: Lanolin 100% Cream 7 GM Tube TOP PRN (16:31)
[2019-02-15] MEDS ORDERED: oxyCODONE 5 MG Tab PO PRN (16:31)
[2019-02-15] MEDS ORDERED: Acetaminophen 500 MG Tab PO PRN ×2 (16:31)
[2019-02-15] MEDS: Ibuprofen 800 MG Tab PO PRN (20:01)
[2019-02-16] MEDS: Misoprostol 25 MCG (1/4 of 100 MCG) Tab PO SCH ×2 (02:28→03:04)
[2019-02-16] MEDS: Ibuprofen 800 MG Tab PO PRN ×2 (03:14→11:52)
--- NOTE | 2019-02-16 07:20 | PCM48HPAN ---
Post Anesthesia Note - EVALUATION WITHIN 48HRS OF ANESTHETIC Vital Signs in Normal Range: Yes Patient Participated in Evaluation: Yes Respiratory Function Stable: Yes Airway Patent: Yes Cardiovascular Function Stable: Yes Hydration Status Stable: Yes Pain Control Satisfactory: Yes Nausea and Vomiting Control Satisfactory: Yes Mental Status Recovered: Yes Resp Rate: 18 - COMMENTS/OBSERVATIONS Free Text/Narrative:: Denies pain and states she received good anesthesia services.
--- NOTE | 2019-02-16 09:10 | PCM.DCSUM1 ---
Discharge Summary - Hospital Course Diagnosis: Stroke: No - Discharge Data Discharge Date: 02/16/19 Discharge Disposition: Home, Self-Care 01 Condition: Good - Patient Instructions Diet: Usual Diet as Tolerated Activity: As Tolerated Driving: Do Not Drive Showering/Bathing: March Shower Notify Provider of: Fever, Increased Pain, Nausea and/or Vomiting - Discharge Plan Home Medications: Home Meds Calcium Carbonate [Calcium] 500 mg PO DAILY 12/22/17 [History] Cyanocobalamin (Vitamin B-12) [Vitamin B-12] 100 mcg PO DAILY 12/22/17 [History] PNV95/Ferrous Fumarate/FA [ Tablet] 1 tab PO DAILY 12/22/17 [History] Referrals: [facility] [Outside] Tania Gordon CNM [Primary Care Provider] - 03/31/19 1:30 pm - Discharge Summary/Plan Comment DC Time >30 min.: Yes - Patient Data Vitals - Most Recent: Last Vital Signs Temp 36.4 C 02/16/19 04:00 Pulse 79 02/16/19 04:00 Resp 18 02/16/19 07:19 BP 120/66 02/16/19 04:00 Pulse Ox 96 02/16/19 04:00 Weight - Most Recent: 122.47 kg Lab Results - Last 24 hrs: Laboratory Results - last 24 hr 02/16/19 Range/Units 04:52 Hgb 11.9 L (12.0-16.0) g/dL Hct 35.3 L (36.0-46.0) % Med Orders - Current: Current Medications Acetaminophen (Tylenol Extra Strength) 500 mg PO Q4H PRN PRN Reason: Pain Acetaminophen (Tylenol Extra Strength) 1,000 mg PO Q4H PRN PRN Reason: Pain Benzocaine/Menthol (Dermoplast Pain Relief 20%-0.5% [place]) 78 gm TOP ASDIRECTED PRN PRN Reason: Perineal Comfort Measure Last Admin: 02/15/19 20:00 Dose: 2.75 oz Bisacodyl (Dulcolax) 10 mg RECTAL ONETIME PRN PRN Reason: Constipation Carboprost Tromethamine (Hemabate Ds) 250 mcg IM ASDIRECTED PRN PRN Reason: Post Hemorrhage Docusate Sodium (Colace) 100 mg PO BID PRN PRN Reason: Constipation Emollient Ointment (Lansinoh Hpa) 0 gm TOP ASDIRECTED PRN PRN Reason: Sore Nipples Lactated Ringer's (Ringers, Lactated) 1,000 mls @ 150 mls/hr IV ASDIRECTED DONTE Last Admin: 02/15/19 08:20 Dose: 150 mls/hr Oxytocin/Sodium Chloride (Oxytocin 30 Unit/500 Ml-Ns) 30 unit in 500 mls @ 999 mls/hr IV TITRATE DONTE Oxytocin/Sodium Chloride (Oxytocin 30 Unit/500 Ml-Ns) 30 unit in 500 mls @ 2 mls/hr IV TITRATE DONTE; Protocol Last Titration: 02/15/19 11:30 Dose: 6 munits/min, 6 mls/hr Tranexamic Acid 1,000 mg/ (Sodium Chloride) 110 mls @ 660 mls/hr IV ONETIME PRN PRN Reason: Bleeding Ibuprofen (Motrin) 400 mg PO Q4H PRN PRN Reason: Pain Ibuprofen (Motrin) 800 mg PO Q6H PRN PRN Reason: Pain Last Admin: 02/16/19 03:14 Dose: 800 mg Lidocaine HCl (Xylocaine 1%) 50 ml INJECT ONETIME PRN PRN Reason: Laceration repair Methylergonovine Maleate (Methergine) 0.2 mg IM ASDIRECTED PRN PRN Reason: Post Hemorrhage Misoprostol (Cytotec) 200 mcg PO ONETIME PRN PRN Reason: Post Hemorrhage Misoprostol (Cytotec) 25 mcg VAG ONETIME PRN PRN Reason: Cervical Ripening Last Admin: 02/14/19 23:27 Dose: 25 mcg Misoprostol (Cytotec) 25 mcg VAG Q4H PRN PRN Reason: Cervical Ripening Last Admin: 02/15/19 03:36 Dose: 25 mcg Misoprostol (Cytotec) 25 mcg PO Q4H DONTE Last Admin: 02/16/19 03:04 Dose: Not Given Nalbuphine HCl (Nubain) 10 mg IVPUSH Q1H PRN PRN Reason: Pain (severe 7-10) Last Admin: 02/15/19 05:10 Dose: 10 mg Ondansetron HCl (Zofran) 4 mg IV Q4H PRN PRN Reason: Nausea/Vomiting Oxycodone HCl (Oxycodone) 5 mg PO Q2H PRN PRN Reason: Pain Sodium Chloride (Saline Flush) 10 ml FLUSH ASDIRECTED PRN PRN Reason: Keep Vein Open Last Admin: 02/14/19 22:33 Dose: 10 ml Sodium Chloride (Normal Saline) 10 ml IV ASDIRECTED PRN PRN Reason: IV Use Sterile Water (Sterile Water For Irrigation) 1,000 ml IRR ASDIRECTED PRN PRN Reason: delivery Terbutaline Sulfate (Brethine) 0.25 mg SUBCUT ASDIRECTED PRN PRN Reason: Tacysystole Witch Danica (Tucks) 1 pad TOP ASDIRECTED PRN PRN Reason: comfort care Last Admin: 02/15/19 19:59 Dose: 1 pad Discontinued Medications Fentanyl/Bupivacaine HCl (Ggvqxuzw-Nuaya-Hj 2 Mcg/Ml-0.125%) Confirm Administered Dose 100 mls @ as directed .ROUTE .STK-MED ONE Stop: 02/15/19 06:50 Last Admin: 02/16/19 02:27 Dose: Not Given Fentanyl/Bupivacaine HCl (Zqpyzmhd-Kcsvg-Wc 2 Mcg/Ml-0.125%) Confirm Administered Dose 100 mls @ as directed .ROUTE .STK-MED ONE Stop: 02/15/19 13:02 Last Admin: 02/16/19 02:28 Dose: Not Given Lidocaine/Epinephrine (Lidocaine 1.5%-Epi 1:200,000) Confirm Administered Dose 5 ml IJ .STK-MED ONE Stop: 02/15/19 06:50 Last Admin: 02/16/19 02:27 Dose: Not Given
--- NOTE | 2019-02-16 09:10 | PCM.PNPP ---
- General Info Date of Service: 02/16/19 Functional Status: Reports: Pain Controlled - Review of Systems General: Reports: No Symptoms HEENT: Reports: No Symptoms Pulmonary: Reports: No Symptoms Cardiovascular: Reports: No Symptoms Gastrointestinal: Reports: No Symptoms Genitourinary: Reports: No Symptoms Musculoskeletal: Reports: No Symptoms Skin: Reports: No Symptoms Neurological: Reports: No Symptoms Psychiatric: Reports: No Symptoms - General Info Date of Service: 02/16/19 - Patient Data Vital Signs - Most Recent: Last Vital Signs Temp 36.4 C 02/16/19 04:00 Pulse 79 02/16/19 04:00 Resp 18 02/16/19 07:19 BP 120/66 02/16/19 04:00 Pulse Ox 96 02/16/19 04:00 Weight - Most Recent: 122.47 kg Lab Results - Last 24 Hours: Laboratory Results - last 24 hr 02/16/19 Range/Units 04:52 Hgb 11.9 L (12.0-16.0) g/dL Hct 35.3 L (36.0-46.0) % Med Orders - Current: Current Medications Acetaminophen (Tylenol Extra Strength) 500 mg PO Q4H PRN PRN Reason: Pain Acetaminophen (Tylenol Extra Strength) 1,000 mg PO Q4H PRN PRN Reason: Pain Benzocaine/Menthol (Dermoplast Pain Relief 20%-0.5% [place]) 78 gm TOP ASDIRECTED PRN PRN Reason: Perineal Comfort Measure Last Admin: 02/15/19 20:00 Dose: 2.75 oz Bisacodyl (Dulcolax) 10 mg RECTAL ONETIME PRN PRN Reason: Constipation Carboprost Tromethamine (Hemabate Ds) 250 mcg IM ASDIRECTED PRN PRN Reason: Post Hemorrhage Docusate Sodium (Colace) 100 mg PO BID PRN PRN Reason: Constipation Emollient Ointment (Lansinoh Hpa) 0 gm TOP ASDIRECTED PRN PRN Reason: Sore Nipples Lactated Ringer's (Ringers, Lactated) 1,000 mls @ 150 mls/hr IV ASDIRECTED DONTE Last Admin: 02/15/19 08:20 Dose: 150 mls/hr Oxytocin/Sodium Chloride (Oxytocin 30 Unit/500 Ml-Ns) 30 unit in 500 mls @ 999 mls/hr IV TITRATE [facility] Oxytocin/Sodium Chloride (Oxytocin 30 Unit/500 Ml-Ns) 30 unit in 500 mls @ 2 mls/hr IV TITRATE [facility]; Protocol Last Titration: 02/15/19 11:30 Dose: 6 munits/min, 6 mls/hr Tranexamic Acid 1,000 mg/ (Sodium Chloride) 110 mls @ 660 mls/hr IV ONETIME PRN PRN Reason: Bleeding Ibuprofen (Motrin) 400 mg PO Q4H PRN PRN Reason: Pain Ibuprofen (Motrin) 800 mg PO Q6H PRN PRN Reason: Pain Last Admin: 02/16/19 03:14 Dose: 800 mg Lidocaine HCl (Xylocaine 1%) 50 ml INJECT ONETIME PRN PRN Reason: Laceration repair Methylergonovine Maleate (Methergine) 0.2 mg IM ASDIRECTED PRN PRN Reason: Post Hemorrhage Misoprostol (Cytotec) 200 mcg PO ONETIME PRN PRN Reason: Post Hemorrhage Misoprostol (Cytotec) 25 mcg VAG ONETIME PRN PRN Reason: Cervical Ripening Last Admin: 02/14/19 23:27 Dose: 25 mcg Misoprostol (Cytotec) 25 mcg VAG Q4H PRN PRN Reason: Cervical Ripening Last Admin: 02/15/19 03:36 Dose: 25 mcg Misoprostol (Cytotec) 25 mcg PO Q4H DONET Last Admin: 02/16/19 03:04 Dose: Not Given Nalbuphine HCl (Nubain) 10 mg IVPUSH Q1H PRN PRN Reason: Pain (severe 7-10) Last Admin: 02/15/19 05:10 Dose: 10 mg Ondansetron HCl (Zofran) 4 mg IV Q4H PRN PRN Reason: Nausea/Vomiting Oxycodone HCl (Oxycodone) 5 mg PO Q2H PRN PRN Reason: Pain Sodium Chloride (Saline Flush) 10 ml FLUSH ASDIRECTED PRN PRN Reason: Keep Vein Open Last Admin: 02/14/19 22:33 Dose: 10 ml Sodium Chloride (Normal Saline) 10 ml IV ASDIRECTED PRN PRN Reason: IV Use Sterile Water (Sterile Water For Irrigation) 1,000 ml IRR ASDIRECTED PRN PRN Reason: delivery Terbutaline Sulfate (Brethine) 0.25 mg SUBCUT ASDIRECTED PRN PRN Reason: Tacysystole Federico Mishra (Tucks) 1 pad TOP ASDIRECTED PRN PRN Reason: comfort care Last Admin: 02/15/19 19:59 Dose: 1 pad Discontinued Medications Fentanyl/Bupivacaine HCl (Hamwarra-Nflge-If 2 Mcg/Ml-0.125%) Confirm Administered Dose 100 mls @ as directed .ROUTE .STOngage-MED ONE Stop: 02/15/19 06:50 Last Admin: 02/16/19 02:27 Dose: Not Given Fentanyl/Bupivacaine HCl (Wtbtyuyg-Ouvxe-Fv 2 Mcg/Ml-0.125%) Confirm Administered Dose 100 mls @ as directed .ROUTE .SellStageMED ONE Stop: 02/15/19 13:02 Last Admin: 02/16/19 02:28 Dose: Not Given Lidocaine/Epinephrine (Lidocaine 1.5%-Epi 1:200,000) Confirm Administered Dose 5 ml IJ .SellStageMED ONE Stop: 02/15/19 06:50 Last Admin: 02/16/19 02:27 Dose: Not Given - Interaction Infant Disposition, : [place] in Room with Family Infant Interaction: Holding Infant Feeding: Attempted ; Nursed Fair/Poor Support Person: Significant Other - Recovery Exam Fundal Tone: Firm Fundal Level: 2 Fingerbreadths Below Umbilicus Fundal Placement: Midline Lochia Amount: Scant Lochia Color: Rubra/Red Perineum Description: Intact, Minimal Bruising/Swelling Episiotomy/Laceration: None Bladder Status: Voiding Urinary Elimination: Voided - Exam General: Alert, Oriented HEENT: Pupils Equal Neck: Supple Lungs: Clear to Auscultation, Normal Respiratory Effort Cardiovascular: Regular Rate, Regular Rhythm GI/Abdominal Exam: Normal Bowel Sounds, Soft, Non-Tender, No Organomegaly, No Distention, No Abnormal Bruit, No Mass, Pelvis Stable Extremities: Normal Inspection, Normal Range of Motion, Non-Tender, No Pedal Edema, Normal Capillary Refill Skin: Warm, Dry, Intact Wound/Incisions: Healing Well Neurological: No New Focal Deficit Psy/Mental Status: Alert, Normal Affect, Normal Mood - Problem List Review Problem List Initiated/Reviewed/Updated: Yes - My Orders Last 24 Hours: My Active Orders 04/15/19 16:31 Acetaminophen [Tylenol Extra Strength] 1,000 mg PO Q4H PRN Acetaminophen [Tylenol Extra Strength] 500 mg PO Q4H PRN Benzocaine/Menthol [Dermoplast Pain Relief 20%-0.5% [place]] 78 gm TOP ASDIRECTED PRN Bisacodyl [Dulcolax] 10 mg RECTAL ONETIME PRN Docusate Sodium [Colace] 100 mg PO BID PRN Ibuprofen [Motrin] 400 mg PO Q4H PRN Ibuprofen [Motrin] 800 mg PO Q6H PRN Lanolin [Lansinoh HPA] See Dose Instructions TOP ASDIRECTED PRN Witch [place] [Tucks] 1 pad TOP ASDIRECTED PRN oxyCODONE 5 mg PO Q2H PRN 02/15/19 16:32 Patient Status [ADT] Routine May Shower [RC] ASDIRECTED Up ad [place] [RC] ASDIRECTED Vital Signs [RC] PER UNIT ROUTINE Assess Lochia [WOMSER] Per Unit Routine Assess Uterine Involution [WOMSER] Per Unit Routine Peripheral IV Discontinue [OM.PC] Routine 02/16/19 Breakfast Regular Diet [DIET] - Assessment Assessment:: Status post normal spontaneous vaginal delivery the patient is doing well normal lochia and she is ambulatory and we are sending the patient home today - Plan Plan:: IOL A: VariZIG P: Admit, epidural now, anticipate . Dr Jimenez updated Labor A: viable male, APGARs 8/9, wt. 9 lb 14 oz., placenta delivered grossly intact, 3VC, EBL 200 mL, perineum intact, fundus firm, mom and baby left in stable condition with nurse at bedside, Dr. Jimenez updated P: Routine plan of care
== END 2019-02-16 16:50 | disposition home or self-care (01) | DRG 807 ==
LOC: MW.OBCHECK 21:21 → MW.OB 21:24 → MW.OBCHECK 22:17 → UNDODISOB 02-15 13:35 → OBSVTOIN 02-15 14:39 → MW.OB 02-15 20:19
PROVIDERS: ADMIT Obstetrics & Gynecology; ATTEND Obstetrics & Gynecology
PROC: 10E0XZZ Delivery of Products of Conception, External Approach (ICD-10-PCS; principal; 2019-02-15)
PROC: 3E0P7VZ Introduction of Hormone into Female Reproductive, Via Natural or Artificial Opening (ICD-10-PCS; principal; 2019-02-15)
PROC: 3E033VJ Introduction of Other Hormone into Peripheral Vein, Percutaneous Approach (ICD-10-PCS; principal; 2019-02-15)
PROC: 00HU33Z Insertion of Infusion Device into Spinal Canal, Percutaneous Approach (ICD-10-PCS; 2019-02-15)
PROC: 3E0R3BZ Introduction of Anesthetic Agent into Spinal Canal, Percutaneous Approach (ICD-10-PCS; 2019-02-15)
DX: O99.214 Obesity complicating childbirth (principal); Z37.0 Single live birth; E66.9 Obesity, unspecified; Z3A.39 39 weeks gestation of pregnancy; O99.344 Other mental disorders complicating childbirth; F32.9 Major depressive disorder, single episode, unspecified; O99.62 Diseases of the digestive system complicating childbirth; K21.9 Gastro-esophageal reflux disease without esophagitis; Z88.1 Allergy status to other antibiotic agents; Z88.2 Allergy status to sulfonamides; Z98.84 Bariatric surgery status
CPT/HCPCS: 36415; 51702; 59025; 85014; 85018; 85027; 86850; 86900; 86901; A9270-GY; J2300; J2590; J7120

== ENCOUNTER 2021-03-04 21:19 | Emergency (ER) | payer BC ==
[2021-03-04] MEDS ORDERED: Sodium Chloride 0.9% 2.5 ML Syringe FLUSH PRN (21:40)
[2021-03-04] MEDS ORDERED: Sodium Chloride 0.9% 10 ML Syringe FLUSH PRN (21:40)
--- NOTE | 2021-03-04 22:00 | EDM.PDOC ---
ED HPI GENERAL MEDICAL PROBLEM - General Chief Complaint: General Stated Complaint: DIFFICULTY BREATHING Time Seen by Provider: 03/04/21 21:32 - History of Present Illness INITIAL COMMENTS - FREE TEXT/NARRATIVE: HISTORY AND PHYSICAL: History of present illness: This is a 40-year-old female who is status post bariatric surgery several years ago who presents ER today secondary to pain and discomfort to her bilateral lower extremities as well as chest pain and shortness of breath that has been persistent for the last several days. Patient reports that she saw her primary care physician a couple days ago and had blood tests ordered as well as an ultrasound of her lower extremities which did not reveal any blood clots. Patient reports that she is scheduled for an echocardiogram next week to further assess her symptoms of her shortness of breath. Patient had labs drawn which revealed essentially normal CBC, CMP but did have an elevated D-dimer. Patient presents to the ER today secondary to progressing concerns over her shortness of breath and discomfort in her chest. As well as pain and discomfort to her bilateral lower extremities. Patient reports that she has had her legs elevated throughout the majority of today and her swelling is completely resolved but she is concerned because the veins in her lower extremities feel and appear to be engorged to her. Patient denies any recent fevers, shakes, chills, nausea, vomiting, diarrhea, dysuria, frequency, urgency, abdominal pain, hemoptysis. Patient reports she is tolerating p.o. solids and liquids well. Patient denies any falls or traumas. Patient has any weakness to her upper or lower extremities. Review of systems: As per history of present illness and below otherwise all systems reviewed and negative. Past medical history: As per history of present illness and as reviewed below otherwise noncontributory. Surgical history: As per history of present illness and as reviewed below otherwise noncontributory. Social history: No reported history of drug abuse. Family history: As per history of present illness and as reviewed below otherwise noncontributory. Physical exam: This patient was seen and evaluated during the 2019 SARS-CoV-2 novel coronavirus pandemic period. Community viral transmission is ongoing at time of this encounter and the emergency department is operating under pandemic response procedures. Constitutional: Patient is oriented to person, place, and time. Appears well- developed and well-nourished. No distress. HEENT: Moist mucous membranes Head: Normocephalic and atraumatic Eyes: Right eye exhibits no discharge. Left eye exhibits no discharge. No scleral icterus Neck: Normal range of motion. No tracheal deviation present. Cardiovascular: Normal rate and regular rhythm. Pulmonary: Effort normal, no respiratory distress. Abdominal: No distention Musculoskeletal: Normal range of motion Neurologic: Alert and oriented to person, place and time. Skin: [place], warm and dry. Psychiatric: Normal mood and affect. Behavior is normal. Judgment and thought content normal. Nursing note and vital signs have been reviewed Patient's ER physical exam is remarkable for lower extremities being tender to palpation bilaterally. There is no calf edema or swelling to either calf or lower extremity. Patient has a negative Homans' sign. Patient does have prominent blood vessels to her bilateral lower extremities. Diagnostics: EKG: As interpreted by ER physician: Paige: Nonspecific ST-T wave abnormalities Normal axis No evidence of ST elevation [place] Normal sinus rhythm heart rate of 88 Therapeutics: [] Assessment and plan: This is a 40-year-old female who presents ER today with concerns of shortness of breath and chest pain as well as concerns to prominent blood vessels to her lower extremities. Patient is currently in the process of evaluation by her primary care physician and has had an ultrasound of her legs which were negative. Patient has an echocardiogram scheduled for next week to further assess her shortness of breath. Patient's creatinine is normal during her prior evaluation. Patient will have a cardiac work-up as well as a BNP, D-dimer, CTA of her chest while in the ER today. Patient's coronavirus test was negative 2 days ago. 11:06 PM: Patient's labs are all within normal limits. Patient has normal troponin, BNP equal 3, D-dimer is trending normal. Patient CTA of her chest revealed no evidence of PE or other pulmonary pathology. Patient does appear to have a fatty liver with slightly elevated LFTs seen on her labs. I have discussed results with the patient and the need to resume her work-up with primary care physician and to keep her appointment with her echocardiogram as scheduled. Reassessment at the time of disposition demonstrates that the patient is in no acute distress. The patient has remained stable throughout the entire ED visit and is without objective evidence for acute process requiring urgent intervention or hospitalization. The patient is stable for discharge, counseling is provided as documented above, discussed symptomatic treatment and specific conditions for return. I have spoken with the patient/caregiver and discussed todays findings, in addition to providing specific details for the plan of care. Questions are answered and there is agreement with the plan. Definitive disposition and diagnosis as appropriate pending reevaluation and review of above. - Related Data Allergies Allergy/AdvReac Type Severity Reaction Status Date / Time cephalexin [From Keflex] Allergy Rash Verified 03/04/21 21:32 Sulfa (Sulfonamide Allergy Rash Verified 03/04/21 21:32 Antibiotics) Home Meds: Home Meds Calcium Carbonate [Calcium] 500 mg PO DAILY 12/22/17 [History] Cyanocobalamin (Vitamin B-12) [Vitamin B-12] 100 mcg PO DAILY 12/22/17 [History] Fish Oil/[place]-3 Fatty Acids [Fish Oil 1,000 MG] 1 gm PO DAILY 02/19/20 [History] Multivitamin [Daily Multiple Vitamin] 1 tab PO DAILY 02/19/20 [History] Acetaminophen/HYDROcodone [[place] 325-5 MG] 1 - 2 tab PO Q6H PRN #20 tablet 02/21/20 [Rx] Past Medical History - Past Health History Medical/Surgical History: Denies Medical/Surgical History HEENT History: Reports: None Cardiovascular History: Reports: None Respiratory History: Reports: None Gastrointestinal History: Reports: GERD Genitourinary History: Reports: None 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: , 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 Musculoskeletal History: Reports: None Neurological History: Reports: None, Other (See Below) Other Neuro History: was in a drug induced coma for a week to correct electrolyte imbalance from water intoxication Psychiatric History: Reports: Depression Endocrine/Metabolic History: Reports: Obesity/BMI 30+, Other (See Below) Hematologic History: Reports: None Immunologic History: Reports: None Oncologic (Cancer) History: Reports: None Dermatologic History: Reports: None - Infectious Disease History Infectious Disease History: Reports: None - Past Surgical History Head Surgeries/Procedures: Reports: None HEENT Surgical History: Reports: None Cardiovascular Surgical History: Reports: None Respiratory Surgical History: Reports: None GI Surgical History: Reports: Bariatric Procedure Female Surgical History: Reports: None Endocrine Surgical History: Reports: None Musculoskeletal Surgical History: Reports: Other (See Below) Other Musculoskeletal Surgeries/Procedures:: ACL Repair right knee (has screw) plus arthroscopy to repair meniscus tear Oncologic Surgical History: Reports: None Dermatological Surgical History: Reports: None Social & Family History - Family History Family Medical History: No Pertinent Family History - Tobacco Use Tobacco Use Status *Q: Never Tobacco User - Caffeine Use Caffeine Use: Reports: None - Recreational Drug Use Recreational Drug Use: No ED ROS GENERAL - Review of Systems Review Of Systems: See Below ED EXAM, GENERAL - Physical Exam Exam: See Below Course - Vital Signs Last Recorded V/S: Last Vital Signs Temp 97 F 03/04/21 21:29 Pulse 109 H 03/04/21 21:29 Resp 18 03/04/21 21:29 BP 151/104 H 03/04/21 21:29 Pulse Ox 95 03/04/21 21:29 - Orders/Labs/Meds Orders: Active Orders 24 hr Category Date Time Status EKG Documentation Completion [RC] AM Care 03/04/21 21:40 Active HCG QUALITATIVE,URINE [URCHEM] Stat Lab 03/04/21 21:40 Ordered UA W/DORA RFLX IF INDICATED [URIN] Stat Lab 03/04/21 21:40 Ordered Sodium Chloride 0.9% [Saline Flush] Med 03/04/21 21:40 Active 10 ml FLUSH ASDIRECTED PRN Sodium Chloride 0.9% [Saline Flush] Med 03/04/21 21:40 Active 2.5 ml FLUSH ASDIRECTED PRN Saline Lock Insert [OM.PC] Stat Oth 03/04/21 21:40 Ordered Medication Orders Sodium Chloride (Sodium Chloride 0.9% 10 Ml Syringe) 10 ml FLUSH ASDIRECTED PRN PRN Reason: Keep Vein Open Last Admin: 03/04/21 22:00 Dose: 10 ml Documented by: CHARITY Sodium Chloride (Sodium Chloride 0.9% 2.5 Ml Syringe) 2.5 ml FLUSH ASDIRECTED PRN PRN Reason: Keep Vein Open Last Admin: 03/04/21 22:00 Dose: 2.5 ml Documented by: CHARITY Labs: Laboratory Tests 03/04/21 03/04/21 03/04/21 Range/Units 21:45 21:45 21:45 WBC 4.87 (4.0-11.0) K/uL RBC 4.31 (4.30-5.90) M/uL Hgb 13.1 (12.0-16.0) g/dL Hct 40.0 (36.0-46.0) % MCV 92.8 (80.0-98.0) fL MCH 30.4 (27.0-32.0) pg MCHC 32.8 (31.0-37.0) g/dL RDW Std Deviation 67.9 H (28.0-62.0) fl RDW Coeff of Ga 20 H (11.0-15.0) % Plt Count 231 (150-400) K/uL MPV 10.00 (7.40-12.00) fL Neut % (Auto) 24.4 L (48.0-80.0) % Lymph % (Auto) 58.1 H (16.0-40.0) % [place] % (Auto) 10.3 (0.0-15.0) % Eos % (Auto) 6.0 (0.0-7.0) % Baso % (Auto) 1.2 (0.0-1.5) % Neut # (Auto) 1.2 L (1.4-5.7) K/uL Lymph # (Auto) 2.8 H (0.6-2.4) K/uL [place] # (Auto) 0.5 (0.0-0.8) K/uL Eos # (Auto) 0.3 (0.0-0.7) K/uL Baso # (Auto) 0.1 (0.0-0.1) K/uL Nucleated RBC % 0.0 /100WBC Nucleated RBCs # 0 K/uL INR 1.04 APTT 23.0 (18.6-31.3) SEC D-Dimer, Quantitative 1.12 H (0.0-0.50) mg/L FEU Sodium 144 (136-145) mmol/L Potassium 3.6 (3.5-5.1) mmol/L Chloride 103 (98-107) mmol/L Carbon Dioxide 21.1 (21.0-32.0) mmol/L BUN 4 L (7.0-18.0) mg/dL Creatinine 0.8 (0.6-1.0) mg/dL Est Cr Clr Drug Dosing 97.69 mL/min Estimated GFR (MDRD) > 60.0 ml/min Glucose 108 H (74-106) mg/dL Calcium 8.8 (8.5-10.1) mg/dL Total Bilirubin 0.6 (0.2-1.0) mg/dL AST 338 H (15-37) IU/L ALT 177 H (14-63) IU/L Alkaline Phosphatase 185 H (46-116) U/L Troponin I < 0.050 (0.000-0.056) ng/mL B-Natriuretic Peptide (<100) PG/ML Total Protein 7.7 (6.4-8.2) g/dL Albumin 3.6 (3.4-5.0) g/dL Globulin 4.1 H (2.6-4.0) g/dL Albumin/Globulin Ratio 0.9 (0.9-1.6) 03/04/21 Range/Units 21:45 WBC (4.0-11.0) K/uL RBC (4.30-5.90) M/uL Hgb (12.0-16.0) g/dL Hct (36.0-46.0) % MCV (80.0-98.0) fL MCH (27.0-32.0) pg MCHC (31.0-37.0) g/dL RDW Std Deviation (28.0-62.0) fl RDW Coeff of Ga (11.0-15.0) % Plt Count (150-400) K/uL MPV (7.40-12.00) fL Neut % (Auto) (48.0-80.0) % Lymph % (Auto) (16.0-40.0) % [place] % (Auto) (0.0-15.0) % Eos % (Auto) (0.0-7.0) % Baso % (Auto) (0.0-1.5) % Neut # (Auto) (1.4-5.7) K/uL Lymph # (Auto) (0.6-2.4) K/uL [place] # (Auto) (0.0-0.8) K/uL Eos # (Auto) (0.0-0.7) K/uL Baso # (Auto) (0.0-0.1) K/uL Nucleated RBC % /100WBC Nucleated RBCs # K/uL INR APTT (18.6-31.3) SEC D-Dimer, Quantitative (0.0-0.50) mg/L FEU Sodium (136-145) mmol/L Potassium (3.5-5.1) mmol/L Chloride (98-107) mmol/L Carbon Dioxide (21.0-32.0) mmol/L BUN (7.0-18.0) mg/dL Creatinine (0.6-1.0) mg/dL Est Cr Clr Drug Dosing mL/min Estimated GFR (MDRD) ml/min Glucose (74-106) mg/dL Calcium (8.5-10.1) mg/dL Total Bilirubin (0.2-1.0) mg/dL AST (15-37) IU/L ALT (14-63) IU/L Alkaline Phosphatase (46-116) U/L Troponin I (0.000-0.056) ng/mL B-Natriuretic Peptide 3 (<100) PG/ML Total Protein (6.4-8.2) g/dL Albumin (3.4-5.0) g/dL Globulin (2.6-4.0) g/dL Albumin/Globulin Ratio (0.9-1.6) Meds: Medications Generic Name Dose Route Start Last Admin Trade Name Freq PRN Reason Stop Dose Admin Sodium Chloride 10 ml 03/04/21 21:40 03/04/21 22:00 Sodium Chloride 0.9% 10 Ml Syringe FLUSH 10 ml ASDIRECTED PRN Administration Keep Vein Open Sodium Chloride 2.5 ml 03/04/21 21:40 03/04/21 22:00 Sodium Chloride 0.9% 2.5 Ml Syringe FLUSH 2.5 ml ASDIRECTED PRN Administration Keep Vein Open Discontinued Medications Generic Name Dose Route Start Last Admin Trade Name Freq PRN Reason Stop Dose Admin Iopamidol 100 ml 03/04/21 22:30 03/04/21 22:31 Iopamidol 755 Mg/Ml 500 Ml Multipack Bottle IVPUSH 03/04/21 22:31 100 ml ONETIME STA Administration Departure - Departure Time of Disposition: 23:07 Disposition: Home, Self-Care 01 Condition: Good Clinical Impression: Leg pain, bilateral Chest pain Qualifiers: Chest pain type: unspecified Qualified Code(s): R07.9 - Chest pain, unspecified Dyspnea Qualifiers: Dyspnea type: unspecified Qualified Code(s): R06.00 - Dyspnea, unspecified - Discharge Information Instructions: Shortness of Breath, Adult, [id number], Nonspecific Chest Pain, Adult Referrals: Jeremy Alvarado MD [Primary Care Provider] - Forms: ED Department Discharge Additional Instructions: You were seen and evaluated in the ER today secondary to chest discomfort and shortness of breath as well as pain to your legs. The work-up in the emergency department was normal. The CTA of your lungs did not reveal any blood clots or other pathology within your lungs. They did reveal that you have a fatty liver which is unlikely the cause of your symptoms. Please keep your appointment for your echocardiogram as scheduled by your doctor and follow-up with them for further investigation of the cause of your symptoms. At this time we are not identifying any severe or life-threatening causes to the symptoms that you are experiencing. The following information is given to patients seen in the emergency department who are being discharged to home. This information is to outline your options for follow-up care. We provide all patients seen in our emergency department with a follow-up referral. The need for follow-up, as well as the timing and circumstances, are variable depending upon the specifics of your emergency department visit. If you don't have a primary care physician on staff, we will provide you with a referral. We always advise you to contact your personal physician following an emergency department visit to inform them of the circumstance of the visit and for follow-up with them and/or the need for any referrals to a consulting specialist. The emergency department will also refer you to a specialist when appropriate. This referral assures that you have the opportunity for follow-up care with a specialist. All of these measure are taken in an effort to provide you with optimal care, which includes your follow-up. Under all circumstances we always encourage you to contact your private physician who remains a resource for coordinating your care. When calling for follow-up care, please make the office aware that this follow-up is from your recent emergency room visit. If for any reason you are refused follow-up, please contact the [facility] Emergency Department at and asked to speak to the emergency department charge nurse. [facility] - [facility] [address] [place] [id number] [facility] [address] [place] [address] Sepsis Event Note (ED) - Evaluation Sepsis Screening Result: No Definite Risk - Focused Exam Vital Signs: Vital Signs Temp Pulse Resp BP Pulse Ox 03/04/21 21:29 97 F 109 H 18 151/104 H 95 - My Orders Last 24 Hours: My Active Orders 03/04/21 21:40 EKG Documentation Completion [RC] AM HCG QUALITATIVE,URINE [URCHEM] Stat UA W/DORA RFLX IF INDICATED [URIN] Stat Sodium Chloride 0.9% [Saline Flush] 10 ml FLUSH ASDIRECTED PRN Sodium Chloride 0.9% [Saline Flush] 2.5 ml FLUSH ASDIRECTED PRN Saline Lock Insert [OM.PC] Stat - Assessment/Plan Last 24 Hours: My Active Orders 03/04/21 21:40 EKG Documentation Completion [RC] AM HCG QUALITATIVE,URINE [URCHEM] Stat UA W/DORA RFLX IF INDICATED [URIN] Stat Sodium Chloride 0.9% [Saline Flush] 10 ml FLUSH ASDIRECTED PRN Sodium Chloride 0.9% [Saline Flush] 2.5 ml FLUSH ASDIRECTED PRN Saline Lock Insert [OM.PC] Stat
[2021-03-04 22:14] LABS: BLOOD UREA NITROGEN,BUN 4 mg/dL (7.0-18.0); CARBON DIOXIDE,CO2 21.1 mmol/L (21.0-32.0); CHLORIDE,CL 103 mmol/L (98-107); GLUCOSE RANDOM 108 mg/dL (74-106); POTASSIUM,K 3.6 mmol/L (3.5-5.1); SODIUM,NA 144 mmol/L (136-145)
[2021-03-04] MEDS ORDERED: Iopamidol 755 MG/ML 500 ML Multipack Bottle IVPUSH STA (22:30)
--- NOTE | 2021-03-04 22:53 | CT ---
INDICATION: Chest pain, shortness of breath, elevated D-dimer TECHNIQUE: CT chest pulmonary PE protocol acquired with 100 cc Isovue 370 IV contrast. COMPARISON: None FINDINGS: Cardiovascular structures: Normal vascular enhancement of the pulmonary arteries, no sign of pulmonary embolism. Heart size is normal. The ascending aorta measures 3.3 cm. Mediastinum and razia: No mass or adenopathy. Lungs: Clear. Pleura and pericardium: No effusions. Chest wall and axilla: No mass or adenopathy. Upper abdomen: Hepatic steatosis. Status post gastric surgery. Bones: No significant findings. IMPRESSION: No pulmonary embolism or pneumonia. Hepatic steatosis. Correlate with LFTs. Mild dilatation of the ascending aorta measuring 3.3 cm. Status post gastric surgery. Please note that all CT scans at this facility use dose modulation, iterative reconstruction, and/or weight-based dosing when appropriate to reduce radiation dose to as low as reasonably achievable. Dictated by Asiya Chilel MD @ 03/04/2021 10:52:[address] Asiya Chilel @ Mar 04 2021 10:52PM
== END 2021-03-04 23:26 | disposition home or self-care (01) ==
LOC: MW.ED 21:19
DX: R07.9 Chest pain, unspecified (principal); R06.02 Shortness of breath; M79.662 Pain in left lower leg; M79.661 Pain in right lower leg; E66.9 Obesity, unspecified; Z68.34 Body mass index [BMI] 34.0-34.9, adult; Z88.1 Allergy status to other antibiotic agents; Z88.2 Allergy status to sulfonamides; Z79.899 Other long term (current) drug therapy
CPT/HCPCS: 36415; 71275; 71275-26; 80053; 83880; 84484; 85025; 85379; 85610; 85730; 93005; 93010; 99284; 99285-25; Q9967

== ENCOUNTER 2021-08-02 09:39 | Observation (INO) | payer BC, MEDICAID ==
[2021-08-02 10:27] LABS: BLOOD UREA NITROGEN,BUN 3 mg/dL (7.0-18.0); CARBON DIOXIDE,CO2 15.9 mmol/L (21.0-32.0); CHLORIDE,CL 95 mmol/L (98-107); GLUCOSE RANDOM 99 mg/dL (74-106); LIPASE 145 U/L (73-393); POTASSIUM,K 3.6 mmol/L (3.5-5.1); SODIUM,NA 136 mmol/L (136-145)
[2021-08-02] MEDS ORDERED: Sodium Chloride 0.9% 1,000 ML IV ONE (10:31)
[2021-08-02] MEDS ORDERED: Ondansetron 4 MG/2 ML SDV IVPUSH ONE ×2 (10:31→12:01)
[2021-08-02 10:45] LABS: BILIRUBIN INDIRECT 3.3
--- NOTE | 2021-08-02 11:08 | CR ---
INDICATION: Cough COMPARISON: None FINDINGS AND IMPRESSION: Normal cardiomediastinal silhouette and pulmonary vasculature. There are no focal pulmonary opacities. Slightly low lung volumes. No pneumothorax. No effusion. Dictated by Patricia Pugh MD @ 08/02/2021 11:07:28 AM (Electronically Signed)
[2021-08-02] MEDS ORDERED: Ketorolac 30 MG/ML SDV IVPUSH ONE ×2 (12:01→15:53)
--- NOTE | 2021-08-02 12:07 | EDM.PDOC ---
ED HPI GENERAL MEDICAL PROBLEM - General Chief Complaint: Abdominal Pain Stated Complaint: ABDOMINAL PAIN Time Seen by Provider: 08/02/21 09:47 Source of Information: Reports: Patient History Limitations: Reports: No Limitations - History of Present Illness INITIAL COMMENTS - FREE TEXT/NARRATIVE: HISTORY AND PHYSICAL: History of present illness: Patient is a 40-year-old female who presents emergency room today from the clinic for concern of jaundice. Patient states that she did not realize that she was jaundiced but was sent to the emergency room today from the clinic as t hey realize she was jaundiced. Patient states that over the past 3 days, she has had progressive weakness, and states that she has no energy to get around. Patient states that she is also been coughing and states that the coughing will make her gag and vomit. Patient states that she has not been able to eat or drink secondary to vomiting and has not kept any fluids down. Patient states that she does have a history of gastric bypass multiple years ago and states that following the surgery, she had some hypoglycemic issues but states other than that she has not had any complications from that. Patient states that she does have GERD and is currently on her menstrual cycle so does not believe to be . Patient states that she has very rare alcohol use and states that maybe 1 day out of the month she might drink alcohol and does not have any alcohol history or use any other substances. Patient denies taking any Tylenol and states that she does not use this medication states that she did take 1 dose of ibuprofen a few days ago but denies any other use of medications. Patient states a few days ago she also had a headache denies any head injury or trauma. Patient denies fever, chills, chest pain, shortness of breath. Denies neck stiff ness, change in vision, syncope, or near syncope. Denies abdominal pain, diarrhea, constipation, or dysuria. Has not noted any blood in urine or stool. Review of systems: As per history of present illness and below otherwise all systems reviewed and negative. Past medical history: As per history of present illness and as reviewed below otherwise noncontributory. Surgical history: As per history of present illness and as reviewed below otherwise noncontributory. Social history: See social history for further information Family history: As per history of present illness and as reviewed below otherwise noncontributory. Physical exam: General: Patient is alert, oriented, and in no acute distress. Patient laying comfortably on exam table, tired appearing. Vitals stable and reviewed by me HEENT: Scleral icterus noted. Otherwise, atraumatic, normocephalic, pupils equal and reactive bilaterally, negative for conjunctival pallor, mucous membranes dry, throat clear, neck supple, nontender, trachea midline. No drooling or trismus noted. No meningeal signs. No hot potato voice noted. Lungs: Clear to auscultation, breath sounds equal bilaterally, chest nontender. Heart: S1S2, regular rate and rhythm without overt murmur Abdomen: Soft, nondistended, nontender. Negative for masses or hepatosplenomegaly. Negative for costovertebral tenderness. Pelvis: Stable nontender. Genitourinary: Deferred. Rectal: Deferred. Skin: Jaundiced. Otherwise, intact, warm, dry. No lesions or rashes noted. Extremities: Atraumatic, negative for cords or calf pain. Neurovascular unremarkable. Neuro: Awake, alert, oriented. Cranial nerves II through XII unremarkable. Cerebellum unremarkable. Motor and sensory unremarkable throughout. Exam nonfocal. Notes: Patient is a 40-year-old female who presents emergency room today from the clinic secondary to jaundice. Patient complains of fatigue, nausea, vomiting, and cough and unaware of her jaundice. Upon arrival to the ED, patient is mildly tachycardic 110s on exam, otherwise vitally stable. Patient is visibly jaundiced on exam with scleral icterus and dry mucous membranes. Otherwise, exam unremarkable. Will obtain IV access, provide a fluid bolus, therapeutics today, and obtain lab work with intention of right upper quadrant ultrasound and abdominal pelvic CT scan. CBC shows mild anemia with red blood cells at 3.47, hemoglobin 11.1, hematocrit 34.4, otherwise mild derangements of CBC unremarkable. INR is 1.13. CMP shows a carbon dioxide of 15.9 which is decreased, marked elevation of total bilirubin at 10.5, with a direct bilirubinemia of 7.3, and indirect normal at 3.3. AST elevated at 289, ALT 174, and alk phos 301. Ammonia within normal limits at 30. Lactic acid within normal limits. Otherwise other mild derangements of CMP unremarkable. Lipase within normal limits. VBG shows a normal pH at 7.4. hCG negative. COVID-19 negative. Chest x-ray shows no acute cardiopulmonary findings. Abdominal and pelvic CT scan shows severe hepatic steatosis. Hepatomegaly. Postoperative changes of gastric surgery. Abdominal ultrasound right upper quadrant shows tiny gallstones with no evidence of acute cholecystitis. Hepatic steatosis and hepatomegaly. CBD within normal limits at 4 mm. Upon reevaluation of patient, she remains vitally stable and comfortable throughout stay in ED. I did call down to MRI who does have the capability to get an MRCP at 1630 today. Discussed with patient who is agreeable. Will obtain MRCP at 1630 when MRI is available. MRCP shows hepatomegaly. Diffuse fatty infiltration of the liver. No focal liver lesion identified. Question of tiny gallstones within the gallbladder. No evidence of cholecystitis. Normal common bile duct caliber of 45 mm per no intraductal stones identified. No pancreatic mass. I did call and speak to the GI/ERCP provider on-call for Jenny Leyva ([phone]) and thoroughly discussed patient's case. He recommends that patient be admitted for observation with repeat lab work in the morning as there is no evidence for immediate ERCP at this time. Based on lab work in the morning, will instruct further guidance. He states to call tomorrow after repeat lab work. He suspects that possibly, the elevations are transient and will start to decrease over time with possible relation to viral infection. I did call and speak to the hospitalist on-call, Dr. Woodward, and thoroughly discussed patient's case. Will admit to Dr. Woodward. On reevaluation of patient, she remains vitally stable and comfortable throughout stay in ED. Patient transferred to the floor to Dr. Woodward's care. Voices understanding and is agreeable to plan of care. Denies any further que stions or concerns at this time. Diagnostics: CBC, CMP, Lactate, VBG, Indirect/Direct bili, ammonia, Pt/INR RUQ US, Abd/Pelvic CT w cont, UA, Serum hcg, Lipase, Magnesium, COVID, CXR, MRCP Therapeutics: NS, Zofran, Toradol Impression: Painless jaundice Obstructive transaminitis Plan: Admit to observation to Dr. Woodward. Definitive disposition and diagnosis as appropriate pending reevaluation and review of above. Bilateral Back Pain Score (Numeric/FACES): 4 - Related Data Allergies Allergy/AdvReac Type Severity Reaction Status Date / Time cephalexin [From Keflex] Allergy Rash Verified 08/02/21 09:52 Sulfa (Sulfonamide Allergy Rash Verified 08/02/21 09:52 Antibiotics) Past Medical History - Past Health History Medical/Surgical History: Denies Medical/Surgical History HEENT History: Reports: None Cardiovascular History: Reports: None Respiratory History: Reports: None Gastrointestinal History: Reports: GERD Genitourinary History: Reports: None [employer] History: Reports: , Spontaneous Musculoskeletal History: Reports: None Neurological History: Reports: None, Other (See Below) Other Neuro History: was in a drug induced coma for a week to correct electrolyte imbalance from water intoxication Psychiatric History: Reports: Depression Endocrine/Metabolic History: Reports: Obesity/BMI 30+, Other (See Below) Hematologic History: Reports: None Immunologic History: Reports: None Oncologic (Cancer) History: Reports: None Dermatologic History: Reports: None - Infectious Disease History Infectious Disease History: Reports: None - Past Surgical History Head Surgeries/Procedures: Reports: None HEENT Surgical History: Reports: None Cardiovascular Surgical History: Reports: None Respiratory Surgical History: Reports: None GI Surgical History: Reports: Bariatric Procedure Female Surgical History: Reports: None Endocrine Surgical History: Reports: None Musculoskeletal Surgical History: Reports: Other (See Below) Other Musculoskeletal Surgeries/Procedures:: ACL Repair right knee (has screw) plus arthroscopy to repair meniscus tear Oncologic Surgical History: Reports: None Dermatological Surgical History: Reports: None Social & Family History - Family History Family Medical History: No Pertinent Family History - Tobacco Use Tobacco Use Status *Q: Never Tobacco User - Caffeine Use Caffeine Use: Reports: None - Recreational Drug Use Recreational Drug Use: No ED ROS GENERAL - Review of Systems Review Of Systems: Comprehensive ROS is negative, except as noted in HPI. ED EXAM, GENERAL - Physical Exam Exam: See Below (see dictation) Course - Vital Signs Last Recorded V/S: Last Vital Signs Temp 97.0 F 08/02/21 17:23 Pulse 76 08/02/21 19:30 Resp 18 08/02/21 19:30 BP 125/75 08/02/21 19:30 Pulse Ox 98 08/02/21 19:30 - Orders/Labs/Meds Orders: Active Orders 24 hr Category Date Time Status HEPATITIS PANEL (4) [REF] Stat Lab 08/02/21 12:36 Received Medication Orders Albuterol/Ipratropium (Albuterol/Ipratropium 3.0-0.5 Mg/3 Ml Neb Soln) 3 ml NEB Q4HRRT PRN PRN Reason: Shortness Of Breath/wheezing Hydromorphone HCl (Hydromorphone 2 Mg/Ml Syringe) 0.5 mg IVPUSH Q4H PRN PRN Reason: Pain Lactated Ringer's (Ringers, Lactated) 1,000 mls @ 125 mls/hr IV ASDIRECTED DONTE Lactated Ringer's (Ringers, Lactated) 1,000 mls @ 999 mls/hr IV BOLUS ONE Stop: 08/02/21 21:49 Pantoprazole Sodium 40 mg/ (Sodium Chloride) 10 mls @ 300 mls/hr IV DAILY DONTE Ondansetron HCl (Ondansetron 4 Mg/2 Ml Sdv) 4 mg IVPUSH Q4H PRN PRN Reason: Nausea/Vomiting Labs: Laboratory Tests 08/02/21 08/02/21 08/02/21 Range/Units 09:59 10:00 10:00 WBC 5.66 (4.0-11.0) K/uL RBC 3.47 L (4.30-5.90) M/uL Hgb 11.1 L (12.0-16.0) g/dL Hct 34.4 L (36.0-46.0) % MCV 99.1 H (80.0-98.0) fL MCH 32.0 (27.0-32.0) pg MCHC 32.3 (31.0-37.0) g/dL RDW Std Deviation 63.7 H (28.0-62.0) fl RDW Coeff of Ga 18 H (11.0-15.0) % Plt Count 226 (150-400) K/uL MPV 11.50 (7.40-12.00) fL Neut % (Auto) 50.2 (48.0-80.0) % Lymph % (Auto) 32.7 (16.0-40.0) % [place] % (Auto) 13.4 (0.0-15.0) % Eos % (Auto) 2.8 (0.0-7.0) % Baso % (Auto) 0.9 (0.0-1.5) % Neut # (Auto) 2.8 (1.4-5.7) K/uL Lymph # (Auto) 1.9 (0.6-2.4) K/uL [place] # (Auto) 0.8 (0.0-0.8) K/uL Eos # (Auto) 0.2 (0.0-0.7) K/uL Baso # (Auto) 0.1 (0.0-0.1) K/uL Nucleated RBC % 0.0 /100WBC Nucleated RBCs # 0 K/uL INR 1.13 VBG pH (7.31-7.41) VBG pCO2 (41-51) mmHG VBG pO2 mmHG VBG HCO3 (23-28) mEq/L VBG Total CO2 (24-29) mmol/L VBG Base Excess (-2.0-3.0) Sodium (136-145) mmol/L Potassium (3.5-5.1) mmol/L Chloride (98-107) mmol/L Carbon Dioxide (21.0-32.0) mmol/L BUN (7.0-18.0) mg/dL Creatinine (0.6-1.0) mg/dL Est Cr Clr Drug Dosing mL/min Estimated GFR (MDRD) ml/min Glucose (74-106) mg/dL POC Glucose (70-99) mg/dL Lactic Acid (0.4-2.0) mmol/L Calcium (8.5-10.1) mg/dL Magnesium (1.8-2.4) mg/dL Total Bilirubin (0.2-1.0) mg/dL Direct Bilirubin (0.0-0.5) mg/dL Indirect Bilirubin AST (15-37) IU/L ALT (14-63) IU/L Alkaline Phosphatase (46-116) U/L Ammonia (19-54) ug/dL Total Protein (6.4-8.2) g/dL Albumin (3.4-5.0) g/dL Globulin (2.6-4.0) g/dL Albumin/Globulin Ratio (0.9-1.6) Lipase (73-393) U/L HCG, Qual (NEG) Urine Color Urine Appearance Urine pH (5.0-8.0) Ur Specific [place] (1.001-1.035) Urine Protein (NEGATIVE) mg/dL Urine Glucose (UA) (NEGATIVE) mg/dL Urine Ketones (NEGATIVE) mg/dL Urine Occult Blood (NEGATIVE) Urine Nitrite (NEGATIVE) Urine Bilirubin (NEGATIVE) Urine Ictotest Urine Urobilinogen (<2.0) EU/dL Ur Leukocyte Esterase (NEGATIVE) Urine RBC (0-2/HPF) Urine WBC (0-5/HPF) Ur Epithelial Cells (NONE-FEW) Urine Bacteria (NEGATIVE) Salicylates (0-20) mg/dL Urine Opiates Screen (NEGATIVE) Ur Oxycodone Screen (NEGATIVE) Urine Methadone Screen (NEGATIVE) Acetaminophen ug/mL Ur Barbiturates Screen (NEGATIVE) Ur Phencyclidine Scrn (NEGATIVE) Ur Amphetamine Screen (NEGATIVE) U Methamphetamines Scrn (NEGATIVE) U Benzodiazepines Scrn (NEGATIVE) U Cocaine Metab Screen (NEGATIVE) U Marijuana (THC) Screen (NEGATIVE) Ethyl Alcohol mg/dL SARS-CoV-2 RNA (KALE) NEGATIVE (NEGATIVE) 08/02/21 08/02/21 08/02/21 Range/Units 10:00 10:00 10:00 WBC (4.0-11.0) K/uL RBC (4.30-5.90) M/uL Hgb (12.0-16.0) g/dL Hct (36.0-46.0) % MCV (80.0-98.0) fL MCH (27.0-32.0) pg MCHC (31.0-37.0) g/dL RDW Std Deviation (28.0-62.0) fl RDW Coeff of Ga (11.0-15.0) % Plt Count (150-400) K/uL MPV (7.40-12.00) fL Neut % (Auto) (48.0-80.0) % Lymph % (Auto) (16.0-40.0) % [place] % (Auto) (0.0-15.0) % Eos % (Auto) (0.0-7.0) % Baso % (Auto) (0.0-1.5) % Neut # (Auto) (1.4-5.7) K/uL Lymph # (Auto) (0.6-2.4) K/uL [place] # (Auto) (0.0-0.8) K/uL Eos # (Auto) (0.0-0.7) K/uL Baso # (Auto) (0.0-0.1) K/uL Nucleated RBC % /100WBC Nucleated RBCs # K/uL INR VBG pH (7.31-7.41) VBG pCO2 (41-51) mmHG VBG pO2 mmHG VBG HCO3 (23-28) mEq/L VBG Total CO2 (24-29) mmol/L VBG Base Excess (-2.0-3.0) Sodium 136 (136-145) mmol/L Potassium 3.6 (3.5-5.1) mmol/L Chloride 95 L (98-107) mmol/L Carbon Dioxide 15.9 L (21.0-32.0) mmol/L BUN 3 L (7.0-18.0) mg/dL Creatinine 0.8 (0.6-1.0) mg/dL Est Cr Clr Drug Dosing 97.69 mL/min Estimated GFR (MDRD) > 60.0 ml/min Glucose 99 (74-106) mg/dL POC Glucose (70-99) mg/dL Lactic Acid 1.3 (0.4-2.0) mmol/L Calcium 8.2 L (8.5-10.1) mg/dL Magnesium 1.9 (1.8-2.4) mg/dL Total Bilirubin 10.5 H 10.6 H (0.2-1.0) mg/dL Direct Bilirubin 7.30 H (0.0-0.5) mg/dL Indirect Bilirubin 3.30 AST 289 H (15-37) IU/L ALT 174 H (14-63) IU/L Alkaline Phosphatase 301 H (46-116) U/L Ammonia (19-54) ug/dL Total Protein 7.5 (6.4-8.2) g/dL Albumin 3.1 L (3.4-5.0) g/dL Globulin 4.4 H (2.6-4.0) g/dL Albumin/Globulin Ratio 0.7 L (0.9-1.6) Lipase 145 (73-393) U/L HCG, Qual (NEG) Urine Color Urine Appearance Urine pH (5.0-8.0) Ur Specific [place] (1.001-1.035) Urine Protein (NEGATIVE) mg/dL Urine Glucose (UA) (NEGATIVE) mg/dL Urine Ketones (NEGATIVE) mg/dL Urine Occult Blood (NEGATIVE) Urine Nitrite (NEGATIVE) Urine Bilirubin (NEGATIVE) Urine Ictotest Urine Urobilinogen (<2.0) EU/dL Ur Leukocyte Esterase (NEGATIVE) Urine RBC (0-2/HPF) Urine WBC (0-5/HPF) Ur Epithelial Cells (NONE-FEW) Urine Bacteria (NEGATIVE) Salicylates (0-20) mg/dL Urine Opiates Screen (NEGATIVE) Ur Oxycodone Screen (NEGATIVE) Urine Methadone Screen (NEGATIVE) Acetaminophen ug/mL Ur Barbiturates Screen (NEGATIVE) Ur Phencyclidine Scrn (NEGATIVE) Ur Amphetamine Screen (NEGATIVE) U Methamphetamines Scrn (NEGATIVE) U Benzodiazepines Scrn (NEGATIVE) U Cocaine Metab Screen (NEGATIVE) U Marijuana (THC) Screen (NEGATIVE) Ethyl Alcohol mg/dL SARS-CoV-2 RNA (KALE) (NEGATIVE) 08/02/21 08/02/21 08/02/21 Range/Units 10:00 10:00 10:57 WBC (4.0-11.0) K/uL RBC (4.30-5.90) M/uL Hgb (12.0-16.0) g/dL Hct (36.0-46.0) % MCV (80.0-98.0) fL MCH (27.0-32.0) pg MCHC (31.0-37.0) g/dL RDW Std Deviation (28.0-62.0) fl RDW Coeff of Ga (11.0-15.0) % Plt Count (150-400) K/uL MPV (7.40-12.00) fL Neut % (Auto) (48.0-80.0) % Lymph % (Auto) (16.0-40.0) % [place] % (Auto) (0.0-15.0) % Eos % (Auto) (0.0-7.0) % Baso % (Auto) (0.0-1.5) % Neut # (Auto) (1.4-5.7) K/uL Lymph # (Auto) (0.6-2.4) K/uL [place] # (Auto) (0.0-0.8) K/uL Eos # (Auto) (0.0-0.7) K/uL Baso # (Auto) (0.0-0.1) K/uL Nucleated RBC % /100WBC Nucleated RBCs # K/uL INR VBG pH (7.31-7.41) VBG pCO2 (41-51) mmHG VBG pO2 mmHG VBG HCO3 (23-28) mEq/L VBG Total CO2 (24-29) mmol/L VBG Base Excess (-2.0-3.0) Sodium (136-145) mmol/L Potassium (3.5-5.1) mmol/L Chloride (98-107) mmol/L Carbon Dioxide (21.0-32.0) mmol/L BUN (7.0-18.0) mg/dL Creatinine (0.6-1.0) mg/dL Est Cr Clr Drug Dosing mL/min Estimated GFR (MDRD) ml/min Glucose (74-106) mg/dL POC Glucose (70-99) mg/dL Lactic Acid (0.4-2.0) mmol/L Calcium (8.5-10.1) mg/dL Magnesium (1.8-2.4) mg/dL Total Bilirubin (0.2-1.0) mg/dL Direct Bilirubin (0.0-0.5) mg/dL Indirect Bilirubin AST (15-37) IU/L ALT (14-63) IU/L Alkaline Phosphatase (46-116) U/L Ammonia 30 (19-54) ug/dL Total Protein (6.4-8.2) g/dL Albumin (3.4-5.0) g/dL Globulin (2.6-4.0) g/dL Albumin/Globulin Ratio (0.9-1.6) Lipase (73-393) U/L HCG, Qual NEGATIVE (NEG) Urine Color Urine Appearance Urine pH (5.0-8.0) Ur Specific [place] (1.001-1.035) Urine Protein (NEGATIVE) mg/dL Urine Glucose (UA) (NEGATIVE) mg/dL Urine Ketones (NEGATIVE) mg/dL Urine Occult Blood (NEGATIVE) Urine Nitrite (NEGATIVE) Urine Bilirubin (NEGATIVE) Urine Ictotest Urine Urobilinogen (<2.0) EU/dL Ur Leukocyte Esterase (NEGATIVE) Urine RBC (0-2/HPF) Urine WBC (0-5/HPF) Ur Epithelial Cells (NONE-FEW) Urine Bacteria (NEGATIVE) Salicylates <0.2 (0-20) mg/dL Urine Opiates Screen (NEGATIVE) Ur Oxycodone Screen (NEGATIVE) Urine Methadone Screen (NEGATIVE) Acetaminophen <2.0 ug/mL Ur Barbiturates Screen (NEGATIVE) Ur Phencyclidine Scrn (NEGATIVE) Ur Amphetamine Screen (NEGATIVE) U Methamphetamines Scrn (NEGATIVE) U Benzodiazepines Scrn (NEGATIVE) U Cocaine Metab Screen (NEGATIVE) U Marijuana (THC) Screen (NEGATIVE) Ethyl Alcohol <3 mg/dL SARS-CoV-2 RNA ([facility]ALE) (NEGATIVE) 08/02/21 08/02/21 08/02/21 Range/Units 10:57 13:30 13:30 WBC (4.0-11.0) K/uL RBC (4.30-5.90) M/uL Hgb (12.0-16.0) g/dL Hct (36.0-46.0) % MCV (80.0-98.0) fL MCH (27.0-32.0) pg MCHC (31.0-37.0) g/dL RDW Std Deviation (28.0-62.0) fl RDW Coeff of Ga (11.0-15.0) % Plt Count (150-400) K/uL MPV (7.40-12.00) fL Neut % (Auto) (48.0-80.0) % Lymph % (Auto) (16.0-40.0) % [place] % (Auto) (0.0-15.0) % Eos % (Auto) (0.0-7.0) % Baso % (Auto) (0.0-1.5) % Neut # (Auto) (1.4-5.7) K/uL Lymph # (Auto) (0.6-2.4) K/uL [place] # (Auto) (0.0-0.8) K/uL Eos # (Auto) (0.0-0.7) K/uL Baso # (Auto) (0.0-0.1) K/uL Nucleated RBC % /100WBC Nucleated RBCs # K/uL INR VBG pH 7.40 (7.31-7.41) VBG pCO2 29 L (41-51) mmHG VBG pO2 31 mmHG VBG HCO3 18 L (23-28) mEq/L VBG Total CO2 17 L (24-29) mmol/L VBG Base Excess -5.6 L (-2.0-3.0) Sodium (136-145) mmol/L Potassium (3.5-5.1) mmol/L Chloride (98-107) mmol/L Carbon Dioxide (21.0-32.0) mmol/L BUN (7.0-18.0) mg/dL Creatinine (0.6-1.0) mg/dL Est Cr Clr Drug Dosing mL/min Estimated GFR (MDRD) ml/min Glucose (74-106) mg/dL POC Glucose (70-99) mg/dL Lactic Acid (0.4-2.0) mmol/L Calcium (8.5-10.1) mg/dL Magnesium (1.8-2.4) mg/dL Total Bilirubin (0.2-1.0) mg/dL Direct Bilirubin (0.0-0.5) mg/dL Indirect Bilirubin AST (15-37) IU/L ALT (14-63) IU/L Alkaline Phosphatase (46-116) U/L Ammonia (19-54) ug/dL Total Protein (6.4-8.2) g/dL Albumin (3.4-5.0) g/dL Globulin (2.6-4.0) g/dL Albumin/Globulin Ratio (0.9-1.6) Lipase (73-393) U/L HCG, Qual (NEG) Urine Color ORANGE Urine Appearance HAZY Urine pH 5.5 (5.0-8.0) Ur Specific [place] 1.020 (1.001-1.035) Urine Protein TRACE H (NEGATIVE) mg/dL Urine Glucose (UA) NEGATIVE (NEGATIVE) mg/dL Urine Ketones >=80 (NEGATIVE) mg/dL Urine Occult Blood LARGE H (NEGATIVE) Urine Nitrite NEGATIVE (NEGATIVE) Urine Bilirubin LARGE H (NEGATIVE) Urine Ictotest POSITIVE Urine Urobilinogen 2.0 H (<2.0) EU/dL Ur Leukocyte Esterase NEGATIVE (NEGATIVE) Urine RBC 2-6 (0-2/HPF) Urine WBC 0-2 (0-5/HPF) Ur Epithelial Cells RARE (NONE-FEW) Urine Bacteria RARE (NEGATIVE) Salicylates (0-20) mg/dL Urine Opiates Screen NEGATIVE (NEGATIVE) Ur Oxycodone Screen NEGATIVE (NEGATIVE) Urine Methadone Screen NEGATIVE (NEGATIVE) Acetaminophen ug/mL Ur Barbiturates Screen NEGATIVE (NEGATIVE) Ur Phencyclidine Scrn NEGATIVE (NEGATIVE) Ur Amphetamine Screen NEGATIVE (NEGATIVE) U Methamphetamines Scrn NEGATIVE (NEGATIVE) U Benzodiazepines Scrn NEGATIVE (NEGATIVE) U Cocaine Metab Screen NEGATIVE (NEGATIVE) U Marijuana (THC) Screen NEGATIVE (NEGATIVE) Ethyl Alcohol mg/dL SARS-CoV-2 RNA (KALE) (NEGATIVE) 08/02/21 Range/Units 13:31 WBC (4.0-11.0) K/uL RBC (4.30-5.90) M/uL Hgb (12.0-16.0) g/dL Hct (36.0-46.0) % MCV (80.0-98.0) fL MCH (27.0-32.0) pg MCHC (31.0-37.0) g/dL RDW Std Deviation (28.0-62.0) fl RDW Coeff of Ga (11.0-15.0) % Plt Count (150-400) K/uL MPV (7.40-12.00) fL Neut % (Auto) (48.0-80.0) % Lymph % (Auto) (16.0-40.0) % [place] % (Auto) (0.0-15.0) % Eos % (Auto) (0.0-7.0) % Baso % (Auto) (0.0-1.5) % Neut # (Auto) (1.4-5.7) K/uL Lymph # (Auto) (0.6-2.4) K/uL [place] # (Auto) (0.0-0.8) K/uL Eos # (Auto) (0.0-0.7) K/uL Baso # (Auto) (0.0-0.1) K/uL Nucleated RBC % /100WBC Nucleated RBCs # K/uL INR VBG pH (7.31-7.41) VBG pCO2 (41-51) mmHG VBG pO2 mmHG VBG HCO3 (23-28) mEq/L VBG Total CO2 (24-29) mmol/L VBG Base Excess (-2.0-3.0) Sodium (136-145) mmol/L Potassium (3.5-5.1) mmol/L Chloride (98-107) mmol/L Carbon Dioxide (21.0-32.0) mmol/L BUN (7.0-18.0) mg/dL Creatinine (0.6-1.0) mg/dL Est Cr Clr Drug Dosing mL/min Estimated GFR (MDRD) ml/min Glucose (74-106) mg/dL POC Glucose 80 (70-99) mg/dL Lactic Acid (0.4-2.0) mmol/L Calcium (8.5-10.1) mg/dL Magnesium (1.8-2.4) mg/dL Total Bilirubin (0.2-1.0) mg/dL Direct Bilirubin (0.0-0.5) mg/dL Indirect Bilirubin AST (15-37) IU/L ALT (14-63) IU/L Alkaline Phosphatase (46-116) U/L Ammonia (19-54) ug/dL Total Protein (6.4-8.2) g/dL Albumin (3.4-5.0) g/dL Globulin (2.6-4.0) g/dL Albumin/Globulin Ratio (0.9-1.6) Lipase (73-393) U/L HCG, Qual (NEG) Urine Color Urine Appearance Urine pH (5.0-8.0) Ur Specific [place] (1.001-1.035) Urine Protein (NEGATIVE) mg/dL Urine Glucose (UA) (NEGATIVE) mg/dL Urine Ketones (NEGATIVE) mg/dL Urine Occult Blood (NEGATIVE) Urine Nitrite (NEGATIVE) Urine Bilirubin (NEGATIVE) Urine Ictotest Urine Urobilinogen (<2.0) EU/dL Ur Leukocyte Esterase (NEGATIVE) Urine RBC (0-2/HPF) Urine WBC (0-5/HPF) Ur Epithelial Cells (NONE-FEW) Urine Bacteria (NEGATIVE) Salicylates (0-20) mg/dL Urine Opiates Screen (NEGATIVE) Ur Oxycodone Screen (NEGATIVE) Urine Methadone Screen (NEGATIVE) Acetaminophen ug/mL Ur Barbiturates Screen (NEGATIVE) Ur Phencyclidine Scrn (NEGATIVE) Ur Amphetamine Screen (NEGATIVE) U Methamphetamines Scrn (NEGATIVE) U Benzodiazepines Scrn (NEGATIVE) U Cocaine Metab Screen (NEGATIVE) U Marijuana (THC) Screen (NEGATIVE) Ethyl Alcohol mg/dL SARS-CoV-2 RNA ([facility]) (NEGATIVE) Meds: Medications Generic Name Dose Route Start Last Admin Trade Name Freq PRN Reason Stop Dose Admin Albuterol/Ipratropium 3 ml 08/02/21 20:49 Albuterol/Ipratropium 3.0-0.5 Mg/3 Ml Neb Soln NEB Q4HRRT PRN Shortness Of Breath/wheezing Hydromorphone HCl 0.5 mg 08/02/21 21:00 Hydromorphone 2 Mg/Ml Syringe IVPUSH Q4H PRN Pain Lactated Ringer's 1,000 mls @ 125 mls/hr 08/02/21 21:00 Ringers, Lactated IV ASDIRECTED DONTE Lactated Ringer's 1,000 mls @ 999 mls/hr 08/02/21 20:49 Ringers, Lactated IV 08/02/21 21:49 BOLUS ONE Pantoprazole Sodium 40 mg/ 10 mls @ 300 mls/hr 08/02/21 21:00 Sodium Chloride IV DAILY DONTE Ondansetron HCl 4 mg 08/02/21 20:49 Ondansetron 4 Mg/2 Ml Sdv IVPUSH Q4H PRN Nausea/Vomiting Discontinued Medications Generic Name Dose Route Start Last Admin Trade Name [place] PRN Reason Stop Dose Admin Sodium Chloride 1,000 mls @ 999 mls/hr 08/02/21 10:31 08/02/21 10:41 Normal Saline IV 08/02/21 11:31 999 mls/hr STAT ONE Administration Iopamidol 100 ml 08/02/21 13:20 08/02/21 13:20 Iopamidol 755 Mg/Ml 500 Ml Multipack Bottle IVPUSH 08/02/21 13:21 100 ml ONETIME STA Administration Ketorolac Tromethamine 30 mg 08/02/21 12:01 08/02/21 12:09 Ketorolac 30 Mg/Ml Sdv IVPUSH 08/02/21 12:02 30 mg ONETIME ONE Administration Ketorolac Tromethamine 15 mg 08/02/21 15:53 08/02/21 16:14 Ketorolac 30 Mg/Ml Sdv IVPUSH 08/02/21 15:54 15 mg ONETIME ONE Administration Ondansetron HCl 4 mg 08/02/21 10:31 08/02/21 10:41 Ondansetron 4 Mg/2 Ml Sdv IVPUSH 08/02/21 10:32 4 mg ONETIME ONE Administration Ondansetron HCl 4 mg 08/02/21 12:01 08/02/21 12:09 Ondansetron 4 Mg/2 Ml Sdv IVPUSH 08/02/21 12:02 4 mg ONETIME ONE Administration Departure - Departure Time of Disposition: 21:24 Disposition: Refer to Observation Clinical Impression: Obstructive jaundice, Painless jaundice - Discharge Information Sepsis Event Note (ED) - Evaluation Sepsis Screening Result: No Definite Risk - Focused Exam Vital Signs: Vital Signs Temp Pulse Resp BP Pulse Ox 08/02/21 19:30 76 18 125/75 98 08/02/21 17:23 97.0 F 102 H 16 146/95 H 99 08/02/21 15:05 77 15 121/77 96 08/02/21 15:02 97.9 F 101 H 17 121/77 98 08/02/21 13:52 98 17 121/94 H 97 08/02/21 12:00 97.8 F 87 16 129/91 H 98 08/02/21 09:53 97.9 F 109 H 16 146/92 H 98 - My Orders Last 24 Hours: My Active Orders 08/02/21 12:36 HEPATITIS PANEL (4) [REF] Stat - Assessment/Plan Last 24 Hours: My Active Orders 08/02/21 12:36 HEPATITIS PANEL (4) [REF] Stat
--- NOTE | 2021-08-02 12:09 | CT ---
INDICATION: Abdominal pain and jaundice TECHNIQUE: CT abdomen and pelvis acquired with 100 cc Isovue 370 IV contrast. COMPARISON: Abdominal ultrasound March 23, 2021 FINDINGS: Lower chest: Unremarkable. Liver: Severe hepatic steatosis. The liver measures 22.0 cm in length. Spleen: Unremarkable. Pancreas: Unremarkable. Gallbladder and bile ducts: Unremarkable. Adrenal glands: Unremarkable. Kidneys: Unremarkable. GI tract: Postoperative changes of gastric surgery. Appendix is normal. Vascular structures: Unremarkable. Lymph nodes: Unremarkable. Miscellaneous: Unremarkable. No free air or significant free fluid. Pelvic Organs: There is a tampon in the vaginal canal. Bones: Unremarkable for age. IMPRESSION: Severe hepatic steatosis. Hepatomegaly. Postoperative changes of gastric surgery. Please note that all CT scans at this facility use dose modulation, iterative reconstruction, and/or weight-based dosing when appropriate to reduce radiation dose to as low as reasonably achievable. Dictated by Asiya Chilel MD @ 08/02/2021 12:07:32 PM (Electronically Signed)
[2021-08-02 12:38] LABS: ACETAMINOPHEN <2.0 ug/mL
--- NOTE | 2021-08-02 13:10 | US ---
INDICATION: Jaundice TECHNIQUE: Ultrasound abdomen limited. Sonographic images of the right upper quadrant were obtained using mcnamara-scale and color Doppler images. COMPARISON: CT abdomen pelvis from earlier today, abdominal ultrasound March 23, 2021 FINDINGS: Liver: Increased echogenicity throughout the liver. The liver measures 22.1 cm in length. No masses. No intrahepatic biliary dilatation. Gallbladder: Tiny gallstones. Normal wall thickness. No pericholecystic fluid. Common bile duct: 4 mm. Pancreas: Normal. Right kidney: 12.0 x 5.5 x 5.6 cm. Normal echotexture and cortex. No masses, stones, or hydronephrosis. Vasculature: Proximal abdominal aorta and IVC are normal. IMPRESSION: Tiny gallstones. No evidence for acute cholecystitis. Hepatic steatosis and hepatomegaly. Dictated by Asiya Chilel MD @ 08/02/2021 1:08:19 PM (Electronically Signed)
[2021-08-02] MEDS ORDERED: Iopamidol 755 MG/ML 500 ML Multipack Bottle IVPUSH STA (13:20)
--- NOTE | 2021-08-02 18:11 | MR ---
Indication: 40-year-old with abnormal liver function studies and painless jaundice. Comparison: CT abdomen and pelvis 08/02/2021; abdominal ultrasound 08/02/2021 Technique: Noncontrast MRI/MRCP of the abdomen was performed with the following sequences: axial and coronal T2 weighted, axial T2 fat saturated, axial diffusion, axial T1 in and out of phase, thick slab and 3D MRCP, axial and coronal 3D T1 weighted Findings: Liver: Non cirrhotic morphology. Diffuse extensive fatty deposition. Gallbladder: Unremarkable. Biliary system: No biliary distention, filling defect, mass or stricture. Pancreas: Normal caliber main pancreatic duct.No suspicious pancreatic lesions. Other abdominal organs: Spleen, kidneys, and adrenal glands are without focal pathology. Bone marrow signal: Normal Other findings: No lymphadenopathy or ascites Impression: 1. Noncirrhotic liver morphology. Diffuse hepatic steatosis. 2. No acute biliary pathology. No biliary distension, filling defect, mass, or stricture. No evidence of choledocholithiasis. Dictated by Genaro Garces MD @ 08/04/2021 8:53:22 AM (Electronically Signed)
[2021-08-02] MEDS ORDERED: Lactated Ringers 1,000 ML IV ONE (20:49)
[2021-08-02] MEDS ORDERED: Albuterol/Ipratropium 3.0-0.5 MG/3 ML Neb Soln NEB PRN (20:49)
[2021-08-02] MEDS ORDERED: HYDROmorphone 2 MG/ML Syringe IVPUSH PRN (21:00)
--- NOTE | 2021-08-02 21:01 | PCM.HP.2 ---
H&P History of Present Illness - General Date of Service: 08/02/21 Admit Problem/Dx: Admission Diagnosis/Problem Admission Diagnosis/Problem Jaundice - History of Present Illness Initial Comments - Free Text/Narative: Patient is a 40-year-old female who presents emergency room today from the clinic for concern of jaundice. Patient states that she did not realize that she was jaundiced but was sent to the emergency room today from the clinic as they realize she was jaundiced. Patient states that over the past 3 days, she has had progressive weakness, and states that she has no energy to get around, she had to take off from her work as she was feeling lethargic and sleeping throughout the day.. Patient states that she is also been having coughing fits which make her gag and vomit. Patient states that she has not been able to eat or drink secondary to vomiting and has not kept any fluids down. Patient states that she does have a history of gastric bypass multiple years ago and states that following the surgery, she had some hypoglycemic issues but states other than that she has not had any complications from that. Patient states that she does have GERD and is currently on her menstrual cycle so does not believe to be . Patient states that she has very rare alcohol use and states that maybe 1 day out of the month she might drink alcohol and does not have any alcohol history or use any other substances. Patient denies taking any Tylenol and states that she does not use this medication states that she did take 1 dose of ibuprofen a few days ago but denies any other use of medications. Patient states a few days ago she also had a headache denies any head injury or trauma. CBC shows mild anemia with red blood cells at 3.47, hemoglobin 11.1, hematocrit 34.4, otherwise mild derangements of CBC unremarkable. INR is 1.13. CMP shows a carbon dioxide of 15.9 which is decreased, marked elevation of total bilirubin at 10.5, with a direct bilirubinemia of 7.3, and indirect normal at 3.3. AST elevated at 289, ALT 174, and alk phos 301. Ammonia within normal limits at 30. Lactic acid within normal limits. Otherwise other mild derangements of CMP unremarkable. Lipase within normal limits. VBG shows a normal pH at 7.4. hCG negative. COVID-19 negative. Chest x-ray shows no acute cardiopulmonary findings. Abdominal and pelvic CT scan shows severe hepatic steatosis. Hepatomegaly. Postoperative changes of gastric surgery. Abdominal ultrasound right upper quadrant shows tiny gallstones with no evidence of acute cholecystitis. Hepatic steatosis and hepatomegaly. CBD within normal limits at 4 mm. MRCP shows hepatomegaly. Diffuse fatty infiltration of the liver. No focal liver lesion identified. Question of tiny gallstones within the gallbladder. No evidence of cholecystitis. Normal common bile duct caliber , no intraductal stones identified. No pancreatic mass. GI/ERCP provider on-call for [facility] Leyva ([phone]) was consulted, He recommends that patient be admitted for observation with repeat lab work in the morning as there is no immediate indication for ERCP at this time. If bilirubin level does not improve or keeps going up then to contact him again otherwise set up an outpatient follow-up with GI, he suspects that p ossibly, the elevations are transient secondary to possible viral etiology and will start to decrease over time. Bilateral Back Pain Score (Numeric/FACES): 4 Headache Pain Score (Numeric/FACES): 8 - Related Data Allergies/Adverse Reactions: Allergies Allergy/AdvReac Type Severity Reaction Status Date / Time cephalexin [From Keflex] Allergy Rash Verified 08/02/21 09:52 Sulfa (Sulfonamide Allergy Rash Verified 08/02/21 09:52 Antibiotics) Past Medical History - Past Health History Medical/Surgical History: Denies Medical/Surgical History HEENT History: Reports: None Cardiovascular History: Reports: None Respiratory History: Reports: None Gastrointestinal History: Reports: GERD Genitourinary History: Reports: None 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: , 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 Musculoskeletal History: Reports: None Neurological History: Reports: None, Other (See Below) Other Neuro History: was in a drug induced coma for a week to correct electrolyte imbalance from water intoxication Psychiatric History: Reports: Depression Endocrine/Metabolic History: Reports: Obesity/BMI 30+, Other (See Below) Hematologic History: Reports: None Immunologic History: Reports: None Oncologic (Cancer) History: Reports: None Dermatologic History: Reports: None - Infectious Disease History Infectious Disease History: Reports: None - Past Surgical History Head Surgeries/Procedures: Reports: None HEENT Surgical History: Reports: None Cardiovascular Surgical History: Reports: None Respiratory Surgical History: Reports: None GI Surgical History: Reports: Bariatric Procedure Female Surgical History: Reports: None Endocrine Surgical History: Reports: None Musculoskeletal Surgical History: Reports: Other (See Below) Other Musculoskeletal Surgeries/Procedures:: ACL Repair right knee (has screw) plus arthroscopy to repair meniscus tear Oncologic Surgical History: Reports: None Dermatological Surgical History: Reports: None Social & Family History - Family History Family Medical History: No Pertinent Family History - Tobacco Use Tobacco Use Status *Q: Never Tobacco User - Caffeine Use Caffeine Use: Reports: None - Recreational Drug Use Recreational Drug Use: No H&P Review of Systems - Review of Systems: Review Of Systems: See Below General: Reports: Malaise, Weakness, Fatigue, Decreased Appetite. Denies: Fever, Chills HEENT: Denies: Contact Lenses, Dysphasia, Ear Pain Pulmonary: Denies: Shortness of Breath, Wheezing, Pleuritic Chest Pain Cardiovascular: Denies: Chest Pain, Palpitations, Dyspnea on Exertion Gastrointestinal: Reports: Anorexia, Decreased Appetite, Nausea, Vomiting. Denies: Abdominal Pain, Black Stool, Bloody Stool, Constipation, Diarrhea, Distension, Flatus, Hematemesis Genitourinary: Denies: Dysuria, Frequency, Burning Musculoskeletal: Denies: Neck Pain, Shoulder Pain, Arm Pain, Back Pain Skin: Denies: Cyanosis, Jaundice, Mottled, Pallor, Diaphoresis Psychiatric: Denies: Confusion, Depression, Mood Lability, Anxiety Neurological: Denies: Confusion, Dizziness, Headache, Numbness Exam - Exam Exam: See Below - Vital Signs Vital Signs: Last Vital Signs Temp 36.1 C 08/02/21 17:23 Pulse 76 08/02/21 19:30 Resp 18 08/02/21 19:30 BP 125/75 08/02/21 19:30 Pulse Ox 98 08/02/21 19:30 Weight: 94.347 kg - Exam General: Alert, Oriented, Cooperative Neck: Supple, Trachea Midline Lungs: Clear to Auscultation, Normal Respiratory Effort Cardiovascular: Regular Rate GI/Abdominal Exam: Normal Bowel Sounds, Soft, Non-Tender, Hepatomegaly. No: Distended, Guarding, Rigid, Rebound, Tender - Patient Data Lab Results Last 24 hrs: Laboratory Results - last 24 hr 08/02/21 08/02/21 08/02/21 Range/Units 09:59 10:00 10:00 WBC 5.66 (4.0-11.0) K/uL RBC 3.47 L (4.30-5.90) M/uL Hgb 11.1 L (12.0-16.0) g/dL Hct 34.4 L (36.0-46.0) % MCV 99.1 H (80.0-98.0) fL MCH 32.0 (27.0-32.0) pg MCHC 32.3 (31.0-37.0) g/dL RDW Std Deviation 63.7 H (28.0-62.0) fl RDW Coeff of Ga 18 H (11.0-15.0) % Plt Count 226 (150-400) K/uL MPV 11.50 (7.40-12.00) fL Neut % (Auto) 50.2 (48.0-80.0) % Lymph % (Auto) 32.7 (16.0-40.0) % [place] % (Auto) 13.4 (0.0-15.0) % Eos % (Auto) 2.8 (0.0-7.0) % Baso % (Auto) 0.9 (0.0-1.5) % Neut # (Auto) 2.8 (1.4-5.7) K/uL Lymph # (Auto) 1.9 (0.6-2.4) K/uL [place] # (Auto) 0.8 (0.0-0.8) K/uL Eos # (Auto) 0.2 (0.0-0.7) K/uL Baso # (Auto) 0.1 (0.0-0.1) K/uL Nucleated RBC % 0.0 /100WBC Nucleated RBCs # 0 K/uL INR 1.13 VBG pH (7.31-7.41) VBG pCO2 (41-51) mmHG VBG pO2 mmHG VBG HCO3 (23-28) mEq/L VBG Total CO2 (24-29) mmol/L VBG Base Excess (-2.0-3.0) Sodium (136-145) mmol/L Potassium (3.5-5.1) mmol/L Chloride (98-107) mmol/L Carbon Dioxide (21.0-32.0) mmol/L BUN (7.0-18.0) mg/dL Creatinine (0.6-1.0) mg/dL Est Cr Clr Drug Dosing mL/min Estimated GFR (MDRD) ml/min Glucose (74-106) mg/dL POC Glucose (70-99) mg/dL Lactic Acid (0.4-2.0) mmol/L Calcium (8.5-10.1) mg/dL Magnesium (1.8-2.4) mg/dL Total Bilirubin (0.2-1.0) mg/dL Direct Bilirubin (0.0-0.5) mg/dL Indirect Bilirubin AST (15-37) IU/L ALT (14-63) IU/L Alkaline Phosphatase (46-116) U/L Ammonia (19-54) ug/dL Total Protein (6.4-8.2) g/dL Albumin (3.4-5.0) g/dL Globulin (2.6-4.0) g/dL Albumin/Globulin Ratio (0.9-1.6) Lipase (73-393) U/L HCG, Qual (NEG) Urine Color Urine Appearance Urine pH (5.0-8.0) Ur Specific Ackerman (1.001-1.035) Urine Protein (NEGATIVE) mg/dL Urine Glucose (UA) (NEGATIVE) mg/dL Urine Ketones (NEGATIVE) mg/dL Urine Occult Blood (NEGATIVE) Urine Nitrite (NEGATIVE) Urine Bilirubin (NEGATIVE) Urine Ictotest Urine Urobilinogen (<2.0) EU/dL Ur Leukocyte Esterase (NEGATIVE) Urine RBC (0-2/HPF) Urine WBC (0-5/HPF) Ur Epithelial Cells (NONE-FEW) Urine Bacteria (NEGATIVE) Salicylates (0-20) mg/dL Urine Opiates Screen (NEGATIVE) Ur Oxycodone Screen (NEGATIVE) Urine Methadone Screen (NEGATIVE) Acetaminophen ug/mL Ur Barbiturates Screen (NEGATIVE) Ur Phencyclidine Scrn (NEGATIVE) Ur Amphetamine Screen (NEGATIVE) U Methamphetamines Scrn (NEGATIVE) U Benzodiazepines Scrn (NEGATIVE) U Cocaine Metab Screen (NEGATIVE) U Marijuana (THC) Screen (NEGATIVE) Ethyl Alcohol mg/dL SARS-CoV-2 RNA (KALE) NEGATIVE (NEGATIVE) 08/02/21 08/02/21 08/02/21 Range/Units 10:00 10:00 10:00 WBC (4.0-11.0) K/uL RBC (4.30-5.90) M/uL Hgb (12.0-16.0) g/dL Hct (36.0-46.0) % MCV (80.0-98.0) fL MCH (27.0-32.0) pg MCHC (31.0-37.0) g/dL RDW Std Deviation (28.0-62.0) fl RDW Coeff of Ga (11.0-15.0) % Plt Count (150-400) K/uL MPV (7.40-12.00) fL Neut % (Auto) (48.0-80.0) % Lymph % (Auto) (16.0-40.0) % [place] % (Auto) (0.0-15.0) % Eos % (Auto) (0.0-7.0) % Baso % (Auto) (0.0-1.5) % Neut # (Auto) (1.4-5.7) K/uL Lymph # (Auto) (0.6-2.4) K/uL [place] # (Auto) (0.0-0.8) K/uL Eos # (Auto) (0.0-0.7) K/uL Baso # (Auto) (0.0-0.1) K/uL Nucleated RBC % /100WBC Nucleated RBCs # K/uL INR VBG pH (7.31-7.41) VBG pCO2 (41-51) mmHG VBG pO2 mmHG VBG HCO3 (23-28) mEq/L VBG Total CO2 (24-29) mmol/L VBG Base Excess (-2.0-3.0) Sodium 136 (136-145) mmol/L Potassium 3.6 (3.5-5.1) mmol/L Chloride 95 L (98-107) mmol/L Carbon Dioxide 15.9 L (21.0-32.0) mmol/L BUN 3 L (7.0-18.0) mg/dL Creatinine 0.8 (0.6-1.0) mg/dL Est Cr Clr Drug Dosing 97.69 mL/min Estimated GFR (MDRD) > 60.0 ml/min Glucose 99 (74-106) mg/dL POC Glucose (70-99) mg/dL Lactic Acid 1.3 (0.4-2.0) mmol/L Calcium 8.2 L (8.5-10.1) mg/dL Magnesium 1.9 (1.8-2.4) mg/dL Total Bilirubin 10.5 H 10.6 H (0.2-1.0) mg/dL Direct Bilirubin 7.30 H (0.0-0.5) mg/dL Indirect Bilirubin 3.30 AST 289 H (15-37) IU/L ALT 174 H (14-63) IU/L Alkaline Phosphatase 301 H (46-116) U/L Ammonia (19-54) ug/dL Total Protein 7.5 (6.4-8.2) g/dL Albumin 3.1 L (3.4-5.0) g/dL Globulin 4.4 H (2.6-4.0) g/dL Albumin/Globulin Ratio 0.7 L (0.9-1.6) Lipase 145 (73-393) U/L HCG, Qual (NEG) Urine Color Urine Appearance Urine pH (5.0-8.0) Ur Specific Ackerman (1.001-1.035) Urine Protein (NEGATIVE) mg/dL Urine Glucose (UA) (NEGATIVE) mg/dL Urine Ketones (NEGATIVE) mg/dL Urine Occult Blood (NEGATIVE) Urine Nitrite (NEGATIVE) Urine Bilirubin (NEGATIVE) Urine Ictotest Urine Urobilinogen (<2.0) EU/dL Ur Leukocyte Esterase (NEGATIVE) Urine RBC (0-2/HPF) Urine WBC (0-5/HPF) Ur Epithelial Cells (NONE-FEW) Urine Bacteria (NEGATIVE) Salicylates (0-20) mg/dL Urine Opiates Screen (NEGATIVE) Ur Oxycodone Screen (NEGATIVE) Urine Methadone Screen (NEGATIVE) Acetaminophen ug/mL Ur Barbiturates Screen (NEGATIVE) Ur Phencyclidine Scrn (NEGATIVE) Ur Amphetamine Screen (NEGATIVE) U Methamphetamines Scrn (NEGATIVE) U Benzodiazepines Scrn (NEGATIVE) U Cocaine Metab Screen (NEGATIVE) U Marijuana (THC) Screen (NEGATIVE) Ethyl Alcohol mg/dL SARS-CoV-2 RNA (KALE) (NEGATIVE) 08/02/21 08/02/21 08/02/21 Range/Units 10:00 10:00 10:57 WBC (4.0-11.0) K/uL RBC (4.30-5.90) M/uL Hgb (12.0-16.0) g/dL Hct (36.0-46.0) % MCV (80.0-98.0) fL MCH (27.0-32.0) pg MCHC (31.0-37.0) g/dL RDW Std Deviation (28.0-62.0) fl RDW Coeff of Ga (11.0-15.0) % Plt Count (150-400) K/uL MPV (7.40-12.00) fL Neut % (Auto) (48.0-80.0) % Lymph % (Auto) (16.0-40.0) % [place] % (Auto) (0.0-15.0) % Eos % (Auto) (0.0-7.0) % Baso % (Auto) (0.0-1.5) % Neut # (Auto) (1.4-5.7) K/uL Lymph # (Auto) (0.6-2.4) K/uL [place] # (Auto) (0.0-0.8) K/uL Eos # (Auto) (0.0-0.7) K/uL Baso # (Auto) (0.0-0.1) K/uL Nucleated RBC % /100WBC Nucleated RBCs # K/uL INR VBG pH (7.31-7.41) VBG pCO2 (41-51) mmHG VBG pO2 mmHG VBG HCO3 (23-28) mEq/L VBG Total CO2 (24-29) mmol/L VBG Base Excess (-2.0-3.0) Sodium (136-145) mmol/L Potassium (3.5-5.1) mmol/L Chloride (98-107) mmol/L Carbon Dioxide (21.0-32.0) mmol/L BUN (7.0-18.0) mg/dL Creatinine (0.6-1.0) mg/dL Est Cr Clr Drug Dosing mL/min Estimated GFR (MDRD) ml/min Glucose (74-106) mg/dL POC Glucose (70-99) mg/dL Lactic Acid (0.4-2.0) mmol/L Calcium (8.5-10.1) mg/dL Magnesium (1.8-2.4) mg/dL Total Bilirubin (0.2-1.0) mg/dL Direct Bilirubin (0.0-0.5) mg/dL Indirect Bilirubin AST (15-37) IU/L ALT (14-63) IU/L Alkaline Phosphatase (46-116) U/L Ammonia 30 (19-54) ug/dL Total Protein (6.4-8.2) g/dL Albumin (3.4-5.0) g/dL Globulin (2.6-4.0) g/dL Albumin/Globulin Ratio (0.9-1.6) Lipase (73-393) U/L HCG, Qual NEGATIVE (NEG) Urine Color Urine Appearance Urine pH (5.0-8.0) Ur Specific Ackerman (1.001-1.035) Urine Protein (NEGATIVE) mg/dL Urine Glucose (UA) (NEGATIVE) mg/dL Urine Ketones (NEGATIVE) mg/dL Urine Occult Blood (NEGATIVE) Urine Nitrite (NEGATIVE) Urine Bilirubin (NEGATIVE) Urine Ictotest Urine Urobilinogen (<2.0) EU/dL Ur Leukocyte Esterase (NEGATIVE) Urine RBC (0-2/HPF) Urine WBC (0-5/HPF) Ur Epithelial Cells (NONE-FEW) Urine Bacteria (NEGATIVE) Salicylates <0.2 (0-20) mg/dL Urine Opiates Screen (NEGATIVE) Ur Oxycodone Screen (NEGATIVE) Urine Methadone Screen (NEGATIVE) Acetaminophen <2.0 ug/mL Ur Barbiturates Screen (NEGATIVE) Ur Phencyclidine Scrn (NEGATIVE) Ur Amphetamine Screen (NEGATIVE) U Methamphetamines Scrn (NEGATIVE) U Benzodiazepines Scrn (NEGATIVE) U Cocaine Metab Screen (NEGATIVE) U Marijuana (THC) Screen (NEGATIVE) Ethyl Alcohol <3 mg/dL SARS-CoV-2 RNA (KALE) (NEGATIVE) 08/02/21 08/02/21 08/02/21 Range/Units 10:57 13:30 13:30 WBC (4.0-11.0) K/uL RBC (4.30-5.90) M/uL Hgb (12.0-16.0) g/dL Hct (36.0-46.0) % MCV (80.0-98.0) fL MCH (27.0-32.0) pg MCHC (31.0-37.0) g/dL RDW Std Deviation (28.0-62.0) fl RDW Coeff of Ga (11.0-15.0) % Plt Count (150-400) K/uL MPV (7.40-12.00) fL Neut % (Auto) (48.0-80.0) % Lymph % (Auto) (16.0-40.0) % [place] % (Auto) (0.0-15.0) % Eos % (Auto) (0.0-7.0) % Baso % (Auto) (0.0-1.5) % Neut # (Auto) (1.4-5.7) K/uL Lymph # (Auto) (0.6-2.4) K/uL [place] # (Auto) (0.0-0.8) K/uL Eos # (Auto) (0.0-0.7) K/uL Baso # (Auto) (0.0-0.1) K/uL Nucleated RBC % /100WBC Nucleated RBCs # K/uL INR VBG pH 7.40 (7.31-7.41) VBG pCO2 29 L (41-51) mmHG VBG pO2 31 mmHG VBG HCO3 18 L (23-28) mEq/L VBG Total CO2 17 L (24-29) mmol/L VBG Base Excess -5.6 L (-2.0-3.0) Sodium (136-145) mmol/L Potassium (3.5-5.1) mmol/L Chloride (98-107) mmol/L Carbon Dioxide (21.0-32.0) mmol/L BUN (7.0-18.0) mg/dL Creatinine (0.6-1.0) mg/dL Est Cr Clr Drug Dosing mL/min Estimated GFR (MDRD) ml/min Glucose (74-106) mg/dL POC Glucose (70-99) mg/dL Lactic Acid (0.4-2.0) mmol/L Calcium (8.5-10.1) mg/dL Magnesium (1.8-2.4) mg/dL Total Bilirubin (0.2-1.0) mg/dL Direct Bilirubin (0.0-0.5) mg/dL Indirect Bilirubin AST (15-37) IU/L ALT (14-63) IU/L Alkaline Phosphatase (46-116) U/L Ammonia (19-54) ug/dL Total Protein (6.4-8.2) g/dL Albumin (3.4-5.0) g/dL Globulin (2.6-4.0) g/dL Albumin/Globulin Ratio (0.9-1.6) Lipase (73-393) U/L HCG, Qual (NEG) Urine Color ORANGE Urine Appearance HAZY Urine pH 5.5 (5.0-8.0) Ur Specific Ackerman 1.020 (1.001-1.035) Urine Protein TRACE H (NEGATIVE) mg/dL Urine Glucose (UA) NEGATIVE (NEGATIVE) mg/dL Urine Ketones >=80 (NEGATIVE) mg/dL Urine Occult Blood LARGE H (NEGATIVE) Urine Nitrite NEGATIVE (NEGATIVE) Urine Bilirubin LARGE H (NEGATIVE) Urine Ictotest POSITIVE Urine Urobilinogen 2.0 H (<2.0) EU/dL Ur Leukocyte Esterase NEGATIVE (NEGATIVE) Urine RBC 2-6 (0-2/HPF) Urine WBC 0-2 (0-5/HPF) Ur Epithelial Cells RARE (NONE-FEW) Urine Bacteria RARE (NEGATIVE) Salicylates (0-20) mg/dL Urine Opiates Screen NEGATIVE (NEGATIVE) Ur Oxycodone Screen NEGATIVE (NEGATIVE) Urine Methadone Screen NEGATIVE (NEGATIVE) Acetaminophen ug/mL Ur Barbiturates Screen NEGATIVE (NEGATIVE) Ur Phencyclidine Scrn NEGATIVE (NEGATIVE) Ur Amphetamine Screen NEGATIVE (NEGATIVE) U Methamphetamines Scrn NEGATIVE (NEGATIVE) U Benzodiazepines Scrn NEGATIVE (NEGATIVE) U Cocaine Metab Screen NEGATIVE (NEGATIVE) U Marijuana (THC) Screen NEGATIVE (NEGATIVE) Ethyl Alcohol mg/dL SARS-CoV-2 RNA (KALE) (NEGATIVE) 08/02/21 Range/Units 13:31 WBC (4.0-11.0) K/uL RBC (4.30-5.90) M/uL Hgb (12.0-16.0) g/dL Hct (36.0-46.0) % MCV (80.0-98.0) fL MCH (27.0-32.0) pg MCHC (31.0-37.0) g/dL RDW Std Deviation (28.0-62.0) fl RDW Coeff of Ga (11.0-15.0) % Plt Count (150-400) K/uL MPV (7.40-12.00) fL Neut % (Auto) (48.0-80.0) % Lymph % (Auto) (16.0-40.0) % [place] % (Auto) (0.0-15.0) % Eos % (Auto) (0.0-7.0) % Baso % (Auto) (0.0-1.5) % Neut # (Auto) (1.4-5.7) K/uL Lymph # (Auto) (0.6-2.4) K/uL [place] # (Auto) (0.0-0.8) K/uL Eos # (Auto) (0.0-0.7) K/uL Baso # (Auto) (0.0-0.1) K/uL Nucleated RBC % /100WBC Nucleated RBCs # K/uL INR VBG pH (7.31-7.41) VBG pCO2 (41-51) mmHG VBG pO2 mmHG VBG HCO3 (23-28) mEq/L VBG Total CO2 (24-29) mmol/L VBG Base Excess (-2.0-3.0) Sodium (136-145) mmol/L Potassium (3.5-5.1) mmol/L Chloride (98-107) mmol/L Carbon Dioxide (21.0-32.0) mmol/L BUN (7.0-18.0) mg/dL Creatinine (0.6-1.0) mg/dL Est Cr Clr Drug Dosing mL/min Estimated GFR (MDRD) ml/min Glucose (74-106) mg/dL POC Glucose 80 (70-99) mg/dL Lactic Acid (0.4-2.0) mmol/L Calcium (8.5-10.1) mg/dL Magnesium (1.8-2.4) mg/dL Total Bilirubin (0.2-1.0) mg/dL Direct Bilirubin (0.0-0.5) mg/dL Indirect Bilirubin AST (15-37) IU/L ALT (14-63) IU/L Alkaline Phosphatase (46-116) U/L Ammonia (19-54) ug/dL Total Protein (6.4-8.2) g/dL Albumin (3.4-5.0) g/dL Globulin (2.6-4.0) g/dL Albumin/Globulin Ratio (0.9-1.6) Lipase (73-393) U/L HCG, Qual (NEG) Urine Color Urine Appearance Urine pH (5.0-8.0) Ur Specific Ackerman (1.001-1.035) Urine Protein (NEGATIVE) mg/dL Urine Glucose (UA) (NEGATIVE) mg/dL Urine Ketones (NEGATIVE) mg/dL Urine Occult Blood (NEGATIVE) Urine Nitrite (NEGATIVE) Urine Bilirubin (NEGATIVE) Urine Ictotest Urine Urobilinogen (<2.0) EU/dL Ur Leukocyte Esterase (NEGATIVE) Urine RBC (0-2/HPF) Urine WBC (0-5/HPF) Ur Epithelial Cells (NONE-FEW) Urine Bacteria (NEGATIVE) Salicylates (0-20) mg/dL Urine Opiates Screen (NEGATIVE) Ur Oxycodone Screen (NEGATIVE) Urine Methadone Screen (NEGATIVE) Acetaminophen ug/mL Ur Barbiturates Screen (NEGATIVE) Ur Phencyclidine Scrn (NEGATIVE) Ur Amphetamine Screen (NEGATIVE) U Methamphetamines Scrn (NEGATIVE) U Benzodiazepines Scrn (NEGATIVE) U Cocaine Metab Screen (NEGATIVE) U Marijuana (THC) Screen (NEGATIVE) Ethyl Alcohol mg/dL SARS-CoV-2 RNA (KALE) (NEGATIVE) Result Diagrams: 08/02/21 10:00 08/02/21 10:00 Sepsis Event Note - Evaluation Sepsis Screening Result: No Definite Risk - Focused Exam Vital Signs: Vital Signs Temp Pulse Resp BP Pulse Ox 08/02/21 19:30 76 18 125/75 98 08/02/21 17:23 36.1 C 102 H 16 146/95 H 99 08/02/21 15:05 77 15 121/77 96 08/02/21 15:02 36.6 C 101 H 17 121/77 98 08/02/21 13:52 98 17 121/94 H 97 08/02/21 12:00 36.6 C 87 16 129/91 H 98 08/02/21 09:53 36.6 C 109 H 16 146/92 H 98 - Problem List (1) Hepatitis SNOMED Code(s): 498436158 ICD Code: K75.9 - INFLAMMATORY LIVER DISEASE, UNSPECIFIED Status: Acute Current Visit: Yes (2) Elevated bilirubin SNOMED Code(s): 11845480 ICD Code: R17 - UNSPECIFIED JAUNDICE Status: Acute Current Visit: Yes (3) Jaundice SNOMED Code(s): 82710532 ICD Code: R17 - UNSPECIFIED JAUNDICE Status: Acute Current Visit: Yes (4) Scleral icterus SNOMED Code(s): 081299175 ICD Code: R17 - UNSPECIFIED JAUNDICE Status: Acute Current Visit: Yes Problem List Initiated/Reviewed/Updated: Yes Orders Last 24hrs: Active Orders 24 hr Category Date Time Status Admission Status [Patient Status] [ADT] Stat ADT 08/02/21 19:35 Active Ambulate [RC] ASDIRECTED Care 08/02/21 20:49 Ordered Antiembolic Devices [RC] PER UNIT ROUTINE Care 08/02/21 20:52 Ordered Oxygen Therapy [RC] PRN Care 08/02/21 20:50 Ordered Pulse Oximetry [RC] PRN Care 08/02/21 20:50 Ordered RT Aerosol Therapy [RC] ASDIRECTED Care 08/02/21 20:53 Ordered VTE/DVT Education [RC] PER UNIT ROUTINE Care 08/02/21 20:50 Ordered Vital Signs [RC] Q4H Care 08/02/21 20:50 Ordered Clear Liquid Diet [DIET] Diet 08/02/21 Dinner Ordered CBC WITH AUTO DIFF [HEME] AM Lab 08/03/21 05:11 Ordered CMP [COMPREHENSIVE METABOLIC PN,CMP] [CHEM] AM Lab 08/03/21 05:11 Ordered HEPATITIS PANEL (4) [REF] Stat Lab 08/02/21 12:36 Received MAGNESIUM [CHEM] AM Lab 08/03/21 05:11 Ordered PHOSPHORUS [CHEM] AM Lab 08/03/21 05:11 Ordered Albuterol/Ipratropium [DuoNeb 3.0-0.5 MG/3 ML] Med 08/02/21 20:49 Ordered 3 ml NEB Q4HRRT PRN HYDROmorphone [Dilaudid] Med 08/02/21 21:00 Ordered 0.5 mg IVPUSH Q4H PRN Lactated Ringers @ 125 MLS/HR(1000ml) Med 08/02/21 21:00 Ordered Lactated Ringers [Ringers, Lactated] 1,000 ml IV ASDIRECTED Lactated Ringers [Ringers, Lactated] 1,000 ml Med 08/02/21 20:49 Ordered IV BOLUS Ondansetron [Zofran] Med 08/02/21 20:49 Ordered 4 mg IVPUSH Q4H PRN Pantoprazole [ProTONIX IV] 40 mg Med 08/02/21 21:00 Ordered Sodium Chloride 0.9% [Normal Saline] 10 ml IV DAILY Sequential Compression Device [OM.PC] Per Unit Routine Oth 08/02/21 20:50 Ordered Resuscitation Status Routine Resus Stat 08/02/21 20:49 Ordered Medication Orders Albuterol/Ipratropium (Albuterol/Ipratropium 3.0-0.5 Mg/3 Ml Neb Soln) 3 ml NEB Q4HRRT PRN PRN Reason: Shortness Of Breath/wheezing Hydromorphone HCl (Hydromorphone 2 Mg/Ml Syringe) 0.5 mg IVPUSH Q4H PRN PRN Reason: Pain Lactated Ringer's (Ringers, Lactated) 1,000 mls @ 125 mls/hr IV ASDIRECTED DONTE Lactated Ringer's (Ringers, Lactated) 1,000 mls @ 999 mls/hr IV BOLUS ONE Stop: 08/02/21 21:49 Pantoprazole Sodium 40 mg/ (Sodium Chloride) 10 mls @ 300 mls/hr IV DAILY DONTE Ondansetron HCl (Ondansetron 4 Mg/2 Ml Sdv) 4 mg IVPUSH Q4H PRN PRN Reason: Nausea/Vomiting Assessment/Plan Comment:: Patient is a 40-year-old female admitted for elevated bilirubin and transaminitis Start patient on IV fluid hydration with LR at 125 cc an hour Repeat CMP in a.m. Patient's INR is normal, no evidence of acute liver failure at this point MRCP noted, no obstructive stone or lesion found Etiology could be viral hepatitis versus autoimmune hepatitis We will continue to monitor LFTs daily
[2021-08-02] MEDS: Pantoprazole 40 MG in Sodium Chloride 0.9% 10 ML IV SCH (22:16)
[2021-08-02] MEDS: Lactated Ringers 1,000 ML IV SCH (23:49)
[2021-08-03] MEDS ORDERED: Ibuprofen 400 MG Tab PO ONE ×2 (06:01→21:12)
[2021-08-03] MEDS: Codeine/guaiFENesin 10-100 MG/5 ML Syrup 5 ML Cup PO PRN (06:56)
[2021-08-03 07:36] LABS: BLOOD UREA NITROGEN,BUN 1 mg/dL (7.0-18.0); CARBON DIOXIDE,CO2 16.3 mmol/L (21.0-32.0); CHLORIDE,CL 99 mmol/L (98-107); GLUCOSE RANDOM 77 mg/dL (74-106); POTASSIUM,K 3.5 mmol/L (3.5-5.1); SODIUM,NA 137 mmol/L (136-145)
[2021-08-03] MEDS: Pantoprazole 40 MG in Sodium Chloride 0.9% 10 ML IV SCH (08:54)
[2021-08-03] MEDS: Lactated Ringers 1,000 ML IV SCH ×2 (10:01→17:31)
[2021-08-03] MEDS: Ondansetron 4 MG/2 ML SDV IVPUSH PRN (10:10)
[2021-08-03] MEDS: HYDROmorphone 1 MG/ML Syringe IVPUSH PRN ×2 (12:07→20:26)
--- NOTE | 2021-08-03 17:27 | PCM.PN ---
<Harvey Todd - Last Filed: 08/03/21 17:43> - General Info Date of Service: 08/03/21 Subjective Update: The patient is a 40-year-old female, on day 2 of service, who has a significant past medical history of GERD, ACL repair of the right knee, and gastric surgery, who was admitted to the floor for jaundice most likely secondary to viral versus autoimmune hepatitis. Upon interview today with the patient, she admits that the nausea and vomiting that she had yesterday has completely subsided. She was drinking chicken broth when I came into her room today and asked for meals as she is hungry and feels will be able to tolerate solids. She also feels that her energy levels have improved in the past 12 hours. When admitted, she had her LFTs, bilirubin, and alkaline phosphatase levels all checked through her CMP which were more elevated then her labs this morning. Her bilirubin has decreased to 10.3, AST 227, ALT to 151, which are all still elevated but trending downwards. She had an MRCP done which showed no stone or lesions, at this juncture an ERCP is not necessary. The patient also complaints of bitemporal headache which is 7 out of 10 in intensity, throbbing, and nonradiating. The patient has no other complaints at this time. - Review of Systems General: Reports: Fatigue, Appetite. Denies: Fever, Chills HEENT: Reports: Headaches Pulmonary: Denies: Shortness of Breath, Cough Cardiovascular: Denies: Chest Pain, Palpitations Gastrointestinal: Denies: Abdominal Pain, Nausea, Vomiting Skin: Reports: Jaundice - Patient Data Vitals - Most Recent: Last Vital Signs Temp 97.0 F 08/03/21 15:25 Pulse 96 08/03/21 15:25 Resp 24 H 08/03/21 15:25 BP 130/67 08/03/21 15:25 Pulse Ox 99 08/03/21 15:25 Weight - Most Recent: 94.347 kg I&O - Last 24 Hours: Intake & Output 08/03/21 08/03/21 08/03/21 06:59 14:59 22:59 Intake Total 169 915 1281 Output Total 400 Balance 730 960 2607 Lab Results Last 24 Hours: Laboratory Results - last 24 hr 08/02/21 08/03/21 08/03/21 Range/Units 13:31 06:14 06:14 WBC 3.99 L (4.0-11.0) K/uL RBC 2.90 L (4.30-5.90) M/uL Hgb 9.1 L (12.0-16.0) g/dL Hct 29.4 L (36.0-46.0) % MCV 101.4 H (80.0-98.0) fL MCH 31.4 (27.0-32.0) pg MCHC 31.0 (31.0-37.0) g/dL RDW Std Deviation 66.1 H (28.0-62.0) fl RDW Coeff of Ga 18 H (11.0-15.0) % Plt Count 194 (150-400) K/uL MPV 10.80 (7.40-12.00) fL Neut % (Auto) 57.3 (48.0-80.0) % Lymph % (Auto) 25.1 (16.0-40.0) % [place] % (Auto) 12.5 (0.0-15.0) % Eos % (Auto) 3.8 (0.0-7.0) % Baso % (Auto) 1.3 (0.0-1.5) % Neut # (Auto) 2.3 (1.4-5.7) K/uL Lymph # (Auto) 1.0 (0.6-2.4) K/uL [place] # (Auto) 0.5 (0.0-0.8) K/uL Eos # (Auto) 0.2 (0.0-0.7) K/uL Baso # (Auto) 0.1 (0.0-0.1) K/uL Nucleated RBC % 0.7 /100WBC Nucleated RBCs # 0 K/uL Sodium 137 (136-145) mmol/L Potassium 3.5 (3.5-5.1) mmol/L Chloride 99 (98-107) mmol/L Carbon Dioxide 16.3 L (21.0-32.0) mmol/L BUN 1 L (7.0-18.0) mg/dL Creatinine 0.8 (0.6-1.0) mg/dL Est Cr Clr Drug Dosing 97.69 mL/min Estimated GFR (MDRD) > 60.0 ml/min Glucose 77 (74-106) mg/dL POC Glucose 80 (70-99) mg/dL Calcium 8.2 L (8.5-10.1) mg/dL Phosphorus 1.7 L (2.6-4.7) mg/dL Magnesium 1.7 L (1.8-2.4) mg/dL Total Bilirubin 10.3 H (0.2-1.0) mg/dL AST 227 H (15-37) IU/L ALT 151 H (14-63) IU/L Alkaline Phosphatase 239 H (46-116) U/L Total Protein 5.9 L (6.4-8.2) g/dL Albumin 2.7 L (3.4-5.0) g/dL Globulin 3.2 (2.6-4.0) g/dL Albumin/Globulin Ratio 0.8 L (0.9-1.6) Med Orders - Current: Current Medications Albuterol/Ipratropium (Albuterol/Ipratropium 3.0-0.5 Mg/3 Ml Neb Soln) 3 ml NEB Q4HRRT PRN PRN Reason: Shortness Of Breath/wheezing Guaifenesin/Codeine Phosphate (Codeine/Guaifenesin 10-100 Mg/5 Ml Syrup 5 Ml Cup) 5 ml PO Q4H PRN PRN Reason: Cough Last Admin: 08/03/21 06:56 Dose: 5 ml Documented by: Hydromorphone HCl (Hydromorphone 1 Mg/Ml Syringe) 0.5 mg IVPUSH Q4H PRN PRN Reason: Pain Last Admin: 08/03/21 12:07 Dose: 0.5 mg Documented by: Lactated Ringer's (Ringers, Lactated) 1,000 mls @ 125 mls/hr IV ASDIRECTED [facility] Last Admin: 08/03/21 10:01 Dose: 125 mls/hr Documented by: Pantoprazole Sodium 40 mg/ (Sodium Chloride) 10 mls @ 300 mls/hr IV DAILY [facility] Last Admin: 08/03/21 08:54 Dose: 300 mls/hr Documented by: Ondansetron HCl (Ondansetron 4 Mg/2 Ml Sdv) 4 mg IVPUSH Q4H PRN PRN Reason: Nausea/Vomiting Last Admin: 08/03/21 10:10 Dose: 4 mg Documented by: Discontinued Medications Hydromorphone HCl (Hydromorphone 2 Mg/Ml Syringe) 0.5 mg IVPUSH Q4H PRN PRN Reason: Pain Last Admin: 08/02/21 22:16 Dose: 0.5 mg Documented by: Sodium Chloride (Normal Saline) 1,000 mls @ 999 mls/hr IV STAT ONE Stop: 08/02/21 11:31 Last Admin: 08/02/21 10:41 Dose: 999 mls/hr Documented by: Lactated Ringer's (Ringers, Lactated) 1,000 mls @ 999 mls/hr IV BOLUS ONE Stop: 08/02/21 21:49 Last Admin: 08/02/21 22:15 Dose: 999 mls/hr Documented by: Ibuprofen (Ibuprofen 400 Mg Tab) 400 mg PO ONETIME ONE Stop: 08/03/21 06:02 Last Admin: 08/03/21 06:57 Dose: 400 mg Documented by: Iopamidol (Iopamidol 755 Mg/Ml 500 Ml Multipack Bottle) 100 ml IVPUSH ONETIME STA Stop: 08/02/21 13:21 Last Admin: 08/02/21 13:20 Dose: 100 ml Documented by: Ketorolac Tromethamine (Ketorolac 30 Mg/Ml Sdv) 30 mg IVPUSH ONETIME ONE Stop: 08/02/21 12:02 Last Admin: 08/02/21 12:09 Dose: 30 mg Documented by: Ketorolac Tromethamine (Ketorolac 30 Mg/Ml Sdv) 15 mg IVPUSH ONETIME ONE Stop: 08/02/21 15:54 Last Admin: 08/02/21 16:14 Dose: 15 mg Documented by: Ondansetron HCl (Ondansetron 4 Mg/2 Ml Sdv) 4 mg IVPUSH ONETIME ONE Stop: 08/02/21 10:32 Last Admin: 08/02/21 10:41 Dose: 4 mg Documented by: Ondansetron HCl (Ondansetron 4 Mg/2 Ml Sdv) 4 mg IVPUSH ONETIME ONE Stop: 08/02/21 12:02 Last Admin: 08/02/21 12:09 Dose: 4 mg Documented by: - Exam General: Alert, Oriented, Cooperative HEENT: Scleral Icterus Neck: No: Trachea Midline Lungs: Clear to Auscultation, Normal Respiratory Effort Cardiovascular: Regular Rate, Regular Rhythm GI/Abdominal Exam: Normal Bowel Sounds, Soft, Non-Tender Skin: Other (Areas of yellow discoloration including the abdomen, neck) - Patient Data Lab Results Last 24 hrs: Laboratory Results - last 24 hr 08/02/21 08/03/21 08/03/21 Range/Units 13:31 06:14 06:14 WBC 3.99 L (4.0-11.0) K/uL RBC 2.90 L (4.30-5.90) M/uL Hgb 9.1 L (12.0-16.0) g/dL Hct 29.4 L (36.0-46.0) % MCV 101.4 H (80.0-98.0) fL MCH 31.4 (27.0-32.0) pg MCHC 31.0 (31.0-37.0) g/dL RDW Std Deviation 66.1 H (28.0-62.0) fl RDW Coeff of Ga 18 H (11.0-15.0) % Plt Count 194 (150-400) K/uL MPV 10.80 (7.40-12.00) fL Neut % (Auto) 57.3 (48.0-80.0) % Lymph % (Auto) 25.1 (16.0-40.0) % [place] % (Auto) 12.5 (0.0-15.0) % Eos % (Auto) 3.8 (0.0-7.0) % Baso % (Auto) 1.3 (0.0-1.5) % Neut # (Auto) 2.3 (1.4-5.7) K/uL Lymph # (Auto) 1.0 (0.6-2.4) K/uL [place] # (Auto) 0.5 (0.0-0.8) K/uL Eos # (Auto) 0.2 (0.0-0.7) K/uL Baso # (Auto) 0.1 (0.0-0.1) K/uL Nucleated RBC % 0.7 /100WBC Nucleated RBCs # 0 K/uL Sodium 137 (136-145) mmol/L Potassium 3.5 (3.5-5.1) mmol/L Chloride 99 (98-107) mmol/L Carbon Dioxide 16.3 L (21.0-32.0) mmol/L BUN 1 L (7.0-18.0) mg/dL Creatinine 0.8 (0.6-1.0) mg/dL Est Cr Clr Drug Dosing 97.69 mL/min Estimated GFR (MDRD) > 60.0 ml/min Glucose 77 (74-106) mg/dL POC Glucose 80 (70-99) mg/dL Calcium 8.2 L (8.5-10.1) mg/dL Phosphorus 1.7 L (2.6-4.7) mg/dL Magnesium 1.7 L (1.8-2.4) mg/dL Total Bilirubin 10.3 H (0.2-1.0) mg/dL AST 227 H (15-37) IU/L ALT 151 H (14-63) IU/L Alkaline Phosphatase 239 H (46-116) U/L Total Protein 5.9 L (6.4-8.2) g/dL Albumin 2.7 L (3.4-5.0) g/dL Globulin 3.2 (2.6-4.0) g/dL Albumin/Globulin Ratio 0.8 L (0.9-1.6) Result Diagrams: 08/03/21 06:14 08/03/21 06:14 Sepsis Event Note - Evaluation Sepsis Screening Result: No Definite Risk - Focused Exam Vital Signs: Vital Signs Temp Pulse Resp BP Pulse Ox 08/03/21 15:25 97.0 F 96 24 H 130/67 99 08/03/21 11:43 97.7 F 92 18 132/83 98 08/03/21 07:38 97.7 F 117 H 18 131/78 99 - Problem List & Annotations (1) Elevated bilirubin SNOMED Code(s): 37684062 Code(s): R17 - UNSPECIFIED JAUNDICE Status: Acute Current Visit: Yes (2) Hepatitis SNOMED Code(s): 168130871 Code(s): K75.9 - INFLAMMATORY LIVER DISEASE, UNSPECIFIED Status: Acute Current Visit: Yes (3) Scleral icterus SNOMED Code(s): 517310316 Code(s): R17 - UNSPECIFIED JAUNDICE Status: Acute Current Visit: Yes (4) Headache SNOMED Code(s): 61908874 Code(s): R51.9 - HEADACHE, UNSPECIFIED Status: Acute Current Visit: Yes (5) GERD (gastroesophageal reflux disease) SNOMED Code(s): 387025329 Code(s): K21.9 - GASTRO-ESOPHAGEAL REFLUX DISEASE WITHOUT ESOPHAGITIS Status: Acute Current Visit: Yes (6) Anemia SNOMED Code(s): 638154815 Code(s): D64.9 - ANEMIA, UNSPECIFIED Status: Acute Current Visit: Yes - Problem List Review Problem List Initiated/Reviewed/Updated: Yes - My Orders Last 24 Hours: My Active Orders 08/03/21 Lunch Regular Diet [DIET] 08/04/21 05:11 CBC WITH AUTO DIFF [HEME] AM CMP [COMPREHENSIVE METABOLIC PN,CMP] [CHEM] AM 08/05/21 05:11 CBC WITH AUTO DIFF [HEME] AM CMP [COMPREHENSIVE METABOLIC PN,CMP] [CHEM] AM - Plan Plan:: 1. Jaundice most likely secondary to viral versus autoimmune hepatitis -We will continue to monitor the patient's AST, ALT, alkaline phosphatase, and bilirubin levels through a.m. CMP. I had a chance to speak with the patients consulting GI doctor in [place] in regards to her care. It was discussed that the MRCP was negative for stones and lesions and that the patient's bilirubin and other CMP parameters have slightly decreased since admission. His recomme ndation was to have an additional CMP done for tomorrow morning and then to have him called to discuss results and possible further management. -Continue the patient on lactated Ringer's, Zofran if she feels nauseous, and start her on a regular diet as she has an appetite and feels she can tolerate solids. -Hepatitis panel received 2. Headache -Continue the patient on Dilaudid 3. GERD -Continue the patient on Protonix 4. Anemia -Continue to monitor hemoglobin and blood parameters through daily CBC <Leslie De La Cruz - Last Filed: 08/04/21 15:39> - Patient Data Vitals - Most Recent: Last Vital Signs Temp 36.0 C L 08/04/21 12:00 Pulse 92 08/04/21 12:00 Resp 16 08/04/21 12:00 BP 121/72 08/04/21 12:00 Pulse Ox 99 08/04/21 12:00 I&O - Last 24 Hours: Intake & Output 08/04/21 08/04/21 08/04/21 06:59 14:59 22:59 Intake Total 1580 Output Total 950 Balance 630 Lab Results Last 24 Hours: Laboratory Results - last 24 hr 08/02/21 08/04/21 08/04/21 Range/Units 12:36 05:20 05:20 WBC 4.18 (4.0-11.0) K/uL RBC 2.77 L (4.30-5.90) M/uL Hgb 8.9 L (12.0-16.0) g/dL Hct 28.1 L (36.0-46.0) % MCV 101.4 H (80.0-98.0) fL MCH 32.1 H (27.0-32.0) pg MCHC 31.7 (31.0-37.0) g/dL RDW Std Deviation 66.7 H (28.0-62.0) fl RDW Coeff of Ga 19 H (11.0-15.0) % Plt Count 195 (150-400) K/uL MPV 10.90 (7.40-12.00) fL Neut % (Auto) 51.4 (48.0-80.0) % Lymph % (Auto) 31.3 (16.0-40.0) % [place] % (Auto) 12.7 (0.0-15.0) % Eos % (Auto) 3.6 (0.0-7.0) % Baso % (Auto) 1.0 (0.0-1.5) % Neut # (Auto) 2.2 (1.4-5.7) K/uL Lymph # (Auto) 1.3 (0.6-2.4) K/uL [place] # (Auto) 0.5 (0.0-0.8) K/uL Eos # (Auto) 0.2 (0.0-0.7) K/uL Baso # (Auto) 0.0 (0.0-0.1) K/uL Nucleated RBC % 0.6 /100WBC Nucleated RBCs # 0 K/uL Sodium 136 (136-145) mmol/L Potassium 3.3 L (3.5-5.1) mmol/L Chloride 99 (98-107) mmol/L Carbon Dioxide 21.4 (21.0-32.0) mmol/L BUN 0 L (7.0-18.0) mg/dL Creatinine 0.7 (0.6-1.0) mg/dL Est Cr Clr Drug Dosing 111.65 mL/min Estimated GFR (MDRD) > 60.0 ml/min Glucose 106 (74-106) mg/dL Calcium 8.0 L (8.5-10.1) mg/dL Magnesium (1.8-2.4) mg/dL Total Bilirubin 9.2 H (0.2-1.0) mg/dL AST 193 H (15-37) IU/L ALT 142 H (14-63) IU/L Alkaline Phosphatase 226 H (46-116) U/L Total Protein 5.7 L (6.4-8.2) g/dL Albumin 2.5 L (3.4-5.0) g/dL Globulin 3.2 (2.6-4.0) g/dL Albumin/Globulin Ratio 0.8 L (0.9-1.6) Hepatitis A IgM Ab Negative (Negative) Hep Bs Antigen Negative (Negative) Hep B Core IgM Ab Negative (Negative) Hepatitis C Antibody <0.1 (0.0-0.9) s/co ratio 08/04/21 Range/Units 05:20 WBC (4.0-11.0) K/uL RBC (4.30-5.90) M/uL Hgb (12.0-16.0) g/dL Hct (36.0-46.0) % MCV (80.0-98.0) fL MCH (27.0-32.0) pg MCHC (31.0-37.0) g/dL RDW Std Deviation (28.0-62.0) fl RDW Coeff of Ga (11.0-15.0) % Plt Count (150-400) K/uL MPV (7.40-12.00) fL Neut % (Auto) (48.0-80.0) % Lymph % (Auto) (16.0-40.0) % [place] % (Auto) (0.0-15.0) % Eos % (Auto) (0.0-7.0) % Baso % (Auto) (0.0-1.5) % Neut # (Auto) (1.4-5.7) K/uL Lymph # (Auto) (0.6-2.4) K/uL [place] # (Auto) (0.0-0.8) K/uL Eos # (Auto) (0.0-0.7) K/uL Baso # (Auto) (0.0-0.1) K/uL Nucleated RBC % /100WBC Nucleated RBCs # K/uL Sodium (136-145) mmol/L Potassium (3.5-5.1) mmol/L Chloride (98-107) mmol/L Carbon Dioxide (21.0-32.0) mmol/L BUN (7.0-18.0) mg/dL Creatinine (0.6-1.0) mg/dL Est Cr Clr Drug Dosing mL/min Estimated GFR (MDRD) ml/min Glucose (74-106) mg/dL Calcium (8.5-10.1) mg/dL Magnesium 1.4 L (1.8-2.4) mg/dL Total Bilirubin (0.2-1.0) mg/dL AST (15-37) IU/L ALT (14-63) IU/L Alkaline Phosphatase (46-116) U/L Total Protein (6.4-8.2) g/dL Albumin (3.4-5.0) g/dL Globulin (2.6-4.0) g/dL Albumin/Globulin Ratio (0.9-1.6) Hepatitis A IgM Ab (Negative) Hep Bs Antigen (Negative) Hep B Core IgM Ab (Negative) Hepatitis C Antibody (0.0-0.9) s/co ratio Med Orders - Current: Current Medications Albuterol/Ipratropium (Albuterol/Ipratropium 3.0-0.5 Mg/3 Ml Neb Soln) 3 ml NEB Q4HRRT PRN PRN Reason: Shortness Of Breath/wheezing Docusate Sodium (Docusate Sodium 100 Mg Cap) 100 mg PO Q12H PRN PRN Reason: Constipation Last Admin: 08/04/21 00:03 Dose: 100 mg Documented by: Guaifenesin/Codeine Phosphate (Codeine/Guaifenesin 10-100 Mg/5 Ml Syrup 5 Ml Cup) 5 ml PO Q4H PRN PRN Reason: Cough Last Admin: 08/04/21 11:42 Dose: 5 ml Documented by: Lactated Ringer's (Ringers, Lactated) 1,000 mls @ 125 mls/hr IV ASDIRECTED [facility] Last Admin: 08/04/21 09:43 Dose: 125 mls/hr Documented by: Pantoprazole Sodium 40 mg/ (Sodium Chloride) 10 mls @ 300 mls/hr IV DAILY [facility] Last Admin: 08/04/21 08:23 Dose: 300 mls/hr Documented by: Ondansetron HCl (Ondansetron 4 Mg/2 Ml Sdv) 4 mg IVPUSH Q4H PRN PRN Reason: Nausea/Vomiting Last Admin: 08/04/21 11:42 Dose: 4 mg Documented by: Polyethylene Glycol (Polyethylene Glycol 3350 Powder 17 Gm Packet) 17 gm PO BEDTIME DONTE Discontinued Medications Hydromorphone HCl (Hydromorphone 2 Mg/Ml Syringe) 0.5 mg IVPUSH Q4H PRN PRN Reason: Pain Last Admin: 08/02/21 22:16 Dose: 0.5 mg Documented by: Hydromorphone HCl (Hydromorphone 1 Mg/Ml Syringe) 0.5 mg IVPUSH Q4H PRN PRN Reason: Pain Last Admin: 08/03/21 20:26 Dose: 0.5 mg Documented by: Sodium Chloride (Normal Saline) 1,000 mls @ 999 mls/hr IV STAT ONE Stop: 08/02/21 11:31 Last Admin: 08/02/21 10:41 Dose: 999 mls/hr Documented by: Lactated Ringer's (Ringers, Lactated) 1,000 mls @ 999 mls/hr IV BOLUS ONE Stop: 08/02/21 21:49 Last Admin: 08/02/21 22:15 Dose: 999 mls/hr Documented by: Magnesium Sulfate 4 gm/ Premix 100 mls @ 50 mls/hr IV ONETIME ONE Stop: 08/04/21 13:59 Last Admin: 08/04/21 12:53 Dose: 50 mls/hr Documented by: Ibuprofen (Ibuprofen 400 Mg Tab) 400 mg PO ONETIME ONE Stop: 08/03/21 06:02 Last Admin: 08/03/21 06:57 Dose: 400 mg Documented by: Ibuprofen (Ibuprofen 400 Mg Tab) 400 mg PO ONETIME ONE Stop: 08/03/21 21:13 Last Admin: 08/04/21 10:04 Dose: 400 mg Documented by: Ibuprofen (Ibuprofen 400 Mg Tab) 400 mg PO ONETIME ONE Stop: 08/04/21 09:49 Last Admin: 08/04/21 10:25 Dose: Not Given Documented by: Iopamidol (Iopamidol 755 Mg/Ml 500 Ml Multipack Bottle) 100 ml IVPUSH ONETIME STA Stop: 08/02/21 13:21 Last Admin: 08/02/21 13:20 Dose: 100 ml Documented by: Ketorolac Tromethamine (Ketorolac 30 Mg/Ml Sdv) 30 mg IVPUSH ONETIME ONE Stop: 08/02/21 12:02 Last Admin: 08/02/21 12:09 Dose: 30 mg Documented by: Ketorolac Tromethamine (Ketorolac 30 Mg/Ml Sdv) 15 mg IVPUSH ONETIME ONE Stop: 08/02/21 15:54 Last Admin: 08/02/21 16:14 Dose: 15 mg Documented by: Ondansetron HCl (Ondansetron 4 Mg/2 Ml Sdv) 4 mg IVPUSH ONETIME ONE Stop: 08/02/21 10:32 Last Admin: 08/02/21 10:41 Dose: 4 mg Documented by: Ondansetron HCl (Ondansetron 4 Mg/2 Ml Sdv) 4 mg IVPUSH ONETIME ONE Stop: 08/02/21 12:02 Last Admin: 08/02/21 12:09 Dose: 4 mg Documented by: Potassium Chloride (Potassium Chloride 20 Meq Tab.Er) 40 meq PO ONETIME ONE Stop: 08/04/21 12:01 Last Admin: 08/04/21 12:54 Dose: 40 meq Documented by: - Patient Data Lab Results Last 24 hrs: Laboratory Results - last 24 hr 08/02/21 08/04/21 08/04/21 Range/Units 12:36 05:20 05:20 WBC 4.18 (4.0-11.0) K/uL RBC 2.77 L (4.30-5.90) M/uL Hgb 8.9 L (12.0-16.0) g/dL Hct 28.1 L (36.0-46.0) % MCV 101.4 H (80.0-98.0) fL MCH 32.1 H (27.0-32.0) pg MCHC 31.7 (31.0-37.0) g/dL RDW Std Deviation 66.7 H (28.0-62.0) fl RDW Coeff of Ga 19 H (11.0-15.0) % Plt Count 195 (150-400) K/uL MPV 10.90 (7.40-12.00) fL Neut % (Auto) 51.4 (48.0-80.0) % Lymph % (Auto) 31.3 (16.0-40.0) % [place] % (Auto) 12.7 (0.0-15.0) % Eos % (Auto) 3.6 (0.0-7.0) % Baso % (Auto) 1.0 (0.0-1.5) % Neut # (Auto) 2.2 (1.4-5.7) K/uL Lymph # (Auto) 1.3 (0.6-2.4) K/uL [place] # (Auto) 0.5 (0.0-0.8) K/uL Eos # (Auto) 0.2 (0.0-0.7) K/uL Baso # (Auto) 0.0 (0.0-0.1) K/uL Nucleated RBC % 0.6 /100WBC Nucleated RBCs # 0 K/uL Sodium 136 (136-145) mmol/L Potassium 3.3 L (3.5-5.1) mmol/L Chloride 99 (98-107) mmol/L Carbon Dioxide 21.4 (21.0-32.0) mmol/L BUN 0 L (7.0-18.0) mg/dL Creatinine 0.7 (0.6-1.0) mg/dL Est Cr Clr Drug Dosing 111.65 mL/min Estimated GFR (MDRD) > 60.0 ml/min Glucose 106 (74-106) mg/dL Calcium 8.0 L (8.5-10.1) mg/dL Magnesium (1.8-2.4) mg/dL Total Bilirubin 9.2 H (0.2-1.0) mg/dL AST 193 H (15-37) IU/L ALT 142 H (14-63) IU/L Alkaline Phosphatase 226 H (46-116) U/L Total Protein 5.7 L (6.4-8.2) g/dL Albumin 2.5 L (3.4-5.0) g/dL Globulin 3.2 (2.6-4.0) g/dL Albumin/Globulin Ratio 0.8 L (0.9-1.6) Hepatitis A IgM Ab Negative (Negative) Hep Bs Antigen Negative (Negative) Hep B Core IgM Ab Negative (Negative) Hepatitis C Antibody <0.1 (0.0-0.9) s/co ratio 08/04/21 Range/Units 05:20 WBC (4.0-11.0) K/uL RBC (4.30-5.90) M/uL Hgb (12.0-16.0) g/dL Hct (36.0-46.0) % MCV (80.0-98.0) fL MCH (27.0-32.0) pg MCHC (31.0-37.0) g/dL RDW Std Deviation (28.0-62.0) fl RDW Coeff of Ga (11.0-15.0) % Plt Count (150-400) K/uL MPV (7.40-12.00) fL Neut % (Auto) (48.0-80.0) % Lymph % (Auto) (16.0-40.0) % [place] % (Auto) (0.0-15.0) % Eos % (Auto) (0.0-7.0) % Baso % (Auto) (0.0-1.5) % Neut # (Auto) (1.4-5.7) K/uL Lymph # (Auto) (0.6-2.4) K/uL [place] # (Auto) (0.0-0.8) K/uL Eos # (Auto) (0.0-0.7) K/uL Baso # (Auto) (0.0-0.1) K/uL Nucleated RBC % /100WBC Nucleated RBCs # K/uL Sodium (136-145) mmol/L Potassium (3.5-5.1) mmol/L Chloride (98-107) mmol/L Carbon Dioxide (21.0-32.0) mmol/L BUN (7.0-18.0) mg/dL Creatinine (0.6-1.0) mg/dL Est Cr Clr Drug Dosing mL/min Estimated GFR (MDRD) ml/min Glucose (74-106) mg/dL Calcium (8.5-10.1) mg/dL Magnesium 1.4 L (1.8-2.4) mg/dL Total Bilirubin (0.2-1.0) mg/dL AST (15-37) IU/L ALT (14-63) IU/L Alkaline Phosphatase (46-116) U/L Total Protein (6.4-8.2) g/dL Albumin (3.4-5.0) g/dL Globulin (2.6-4.0) g/dL Albumin/Globulin Ratio (0.9-1.6) Hepatitis A IgM Ab (Negative) Hep Bs Antigen (Negative) Hep B Core IgM Ab (Negative) Hepatitis C Antibody (0.0-0.9) s/co ratio Result Diagrams: 08/04/21 05:20 08/04/21 05:20 Sepsis Event Note - Focused Exam Vital Signs: Vital Signs Temp Pulse Resp BP Pulse Ox 08/04/21 12:00 36.0 C L 92 16 121/72 99 08/04/21 08:26 36.1 C 101 H 18 118/78 95 08/04/21 04:00 36.7 C 93 19 128/82 96 - Problem List & Annotations (1) Hepatitis SNOMED Code(s): 641451181 Code(s): K75.9 - INFLAMMATORY LIVER DISEASE, UNSPECIFIED Status: Acute Current Visit: Yes (2) Elevated bilirubin SNOMED Code(s): 97642518 Code(s): R17 - UNSPECIFIED JAUNDICE Status: Acute Current Visit: Yes (3) Jaundice SNOMED Code(s): 84302272 Code(s): R17 - UNSPECIFIED JAUNDICE Status: Acute Current Visit: Yes (4) Scleral icterus SNOMED Code(s): 350899678 Code(s): R17 - UNSPECIFIED JAUNDICE Status: Acute Current Visit: Yes - My Orders Last 24 Hours: My Active Orders 08/03/21 23:50 Docusate Sodium [Colace] 100 mg PO Q12H PRN - Plan Plan:: I have seen and evaluated the patient and agree with the residents note unless specified in my note
[2021-08-04] MEDS: Codeine/guaiFENesin 10-100 MG/5 ML Syrup 5 ML Cup PO PRN ×4 (00:03→19:47)
[2021-08-04] MEDS: Docusate Sodium 100 MG Cap PO PRN (00:03)
[2021-08-04] MEDS: Lactated Ringers 1,000 ML IV SCH ×3 (01:24→19:47)
[2021-08-04 06:39] LABS: BLOOD UREA NITROGEN,BUN 0 mg/dL (7.0-18.0); CARBON DIOXIDE,CO2 21.4 mmol/L (21.0-32.0); CHLORIDE,CL 99 mmol/L (98-107); GLUCOSE RANDOM 106 mg/dL (74-106); POTASSIUM,K 3.3 mmol/L (3.5-5.1); SODIUM,NA 136 mmol/L (136-145)
[2021-08-04] MEDS: Ondansetron 4 MG/2 ML SDV IVPUSH PRN ×2 (07:28→11:42)
[2021-08-04] MEDS: Pantoprazole 40 MG in Sodium Chloride 0.9% 10 ML IV SCH (08:23)
[2021-08-04] MEDS ORDERED: Ibuprofen 400 MG Tab PO ONE (09:48)
--- NOTE | 2021-08-04 11:40 | PCM.PN ---
- General Info Date of Service: 08/04/21 Subjective Update: Patient states she is still nauseous and has poor oral intake. Also states fatigue. - Review of Systems General: Denies: Fever, Chills Pulmonary: Reports: Cough. Denies: Shortness of Breath Cardiovascular: Denies: Chest Pain, Dyspnea on Exertion, Edema Gastrointestinal: Reports: Decreased Appetite, Nausea. Denies: Abdominal Pain, Diarrhea Neurological: Denies: Confusion, Dizziness Psychiatric: Denies: Confusion - Patient Data Vitals - Most Recent: Last Vital Signs Temp 96.9 F 08/04/21 08:26 Pulse 101 H 08/04/21 08:26 Resp 18 08/04/21 08:26 BP 118/78 08/04/21 08:26 Pulse Ox 95 08/04/21 08:26 Weight - Most Recent: 208 lb I&O - Last 24 Hours: Intake & Output 08/03/21 08/04/21 08/04/21 22:59 06:59 14:59 Intake Total 2260 1580 Output Total 950 Balance 2260 630 Lab Results Last 24 Hours: Laboratory Results - last 24 hr 08/02/21 08/04/21 08/04/21 Range/Units 12:36 05:20 05:20 WBC 4.18 (4.0-11.0) K/uL RBC 2.77 L (4.30-5.90) M/uL Hgb 8.9 L (12.0-16.0) g/dL Hct 28.1 L (36.0-46.0) % MCV 101.4 H (80.0-98.0) fL MCH 32.1 H (27.0-32.0) pg MCHC 31.7 (31.0-37.0) g/dL RDW Std Deviation 66.7 H (28.0-62.0) fl RDW Coeff of Ga 19 H (11.0-15.0) % Plt Count 195 (150-400) K/uL MPV 10.90 (7.40-12.00) fL Neut % (Auto) 51.4 (48.0-80.0) % Lymph % (Auto) 31.3 (16.0-40.0) % Clarke % (Auto) 12.7 (0.0-15.0) % Eos % (Auto) 3.6 (0.0-7.0) % Baso % (Auto) 1.0 (0.0-1.5) % Neut # (Auto) 2.2 (1.4-5.7) K/uL Lymph # (Auto) 1.3 (0.6-2.4) K/uL Clarke # (Auto) 0.5 (0.0-0.8) K/uL Eos # (Auto) 0.2 (0.0-0.7) K/uL Baso # (Auto) 0.0 (0.0-0.1) K/uL Nucleated RBC % 0.6 /100WBC Nucleated RBCs # 0 K/uL Sodium 136 (136-145) mmol/L Potassium 3.3 L (3.5-5.1) mmol/L Chloride 99 (98-107) mmol/L Carbon Dioxide 21.4 (21.0-32.0) mmol/L BUN 0 L (7.0-18.0) mg/dL Creatinine 0.7 (0.6-1.0) mg/dL Est Cr Clr Drug Dosing 111.65 mL/min Estimated GFR (MDRD) > 60.0 ml/min Glucose 106 (74-106) mg/dL Calcium 8.0 L (8.5-10.1) mg/dL Magnesium (1.8-2.4) mg/dL Total Bilirubin 9.2 H (0.2-1.0) mg/dL AST 193 H (15-37) IU/L ALT 142 H (14-63) IU/L Alkaline Phosphatase 226 H (46-116) U/L Total Protein 5.7 L (6.4-8.2) g/dL Albumin 2.5 L (3.4-5.0) g/dL Globulin 3.2 (2.6-4.0) g/dL Albumin/Globulin Ratio 0.8 L (0.9-1.6) Hepatitis A IgM Ab Negative (Negative) Hep Bs Antigen Negative (Negative) Hep B Core IgM Ab Negative (Negative) Hepatitis C Antibody <0.1 (0.0-0.9) s/co ratio 08/04/21 Range/Units 05:20 WBC (4.0-11.0) K/uL RBC (4.30-5.90) M/uL Hgb (12.0-16.0) g/dL Hct (36.0-46.0) % MCV (80.0-98.0) fL MCH (27.0-32.0) pg MCHC (31.0-37.0) g/dL RDW Std Deviation (28.0-62.0) fl RDW Coeff of Ga (11.0-15.0) % Plt Count (150-400) K/uL MPV (7.40-12.00) fL Neut % (Auto) (48.0-80.0) % Lymph % (Auto) (16.0-40.0) % Clarke % (Auto) (0.0-15.0) % Eos % (Auto) (0.0-7.0) % Baso % (Auto) (0.0-1.5) % Neut # (Auto) (1.4-5.7) K/uL Lymph # (Auto) (0.6-2.4) K/uL Clarke # (Auto) (0.0-0.8) K/uL Eos # (Auto) (0.0-0.7) K/uL Baso # (Auto) (0.0-0.1) K/uL Nucleated RBC % /100WBC Nucleated RBCs # K/uL Sodium (136-145) mmol/L Potassium (3.5-5.1) mmol/L Chloride (98-107) mmol/L Carbon Dioxide (21.0-32.0) mmol/L BUN (7.0-18.0) mg/dL Creatinine (0.6-1.0) mg/dL Est Cr Clr Drug Dosing mL/min Estimated GFR (MDRD) ml/min Glucose (74-106) mg/dL Calcium (8.5-10.1) mg/dL Magnesium 1.4 L (1.8-2.4) mg/dL Total Bilirubin (0.2-1.0) mg/dL AST (15-37) IU/L ALT (14-63) IU/L Alkaline Phosphatase (46-116) U/L Total Protein (6.4-8.2) g/dL Albumin (3.4-5.0) g/dL Globulin (2.6-4.0) g/dL Albumin/Globulin Ratio (0.9-1.6) Hepatitis A IgM Ab (Negative) Hep Bs Antigen (Negative) Hep B Core IgM Ab (Negative) Hepatitis C Antibody (0.0-0.9) s/co ratio Med Orders - Current: Current Medications Albuterol/Ipratropium (Albuterol/Ipratropium 3.0-0.5 Mg/3 Ml Neb Soln) 3 ml NEB Q4HRRT PRN PRN Reason: Shortness Of Breath/wheezing Docusate Sodium (Docusate Sodium 100 Mg Cap) 100 mg PO Q12H PRN PRN Reason: Constipation Last Admin: 08/04/21 00:03 Dose: 100 mg Documented by: Guaifenesin/Codeine Phosphate (Codeine/Guaifenesin 10-100 Mg/5 Ml Syrup 5 Ml Cup) 5 ml PO Q4H PRN PRN Reason: Cough Last Admin: 08/04/21 04:22 Dose: 5 ml Documented by: Lactated Ringer's (Ringers, Lactated) 1,000 mls @ 125 mls/hr IV ASDIRECTED DONTE Last Admin: 08/04/21 09:43 Dose: 125 mls/hr Documented by: Pantoprazole Sodium 40 mg/ (Sodium Chloride) 10 mls @ 300 mls/hr IV DAILY DONTE Last Admin: 08/04/21 08:23 Dose: 300 mls/hr Documented by: Magnesium Sulfate 4 gm/ Premix 100 mls @ 50 mls/hr IV ONETIME ONE Stop: 08/04/21 13:35 Ondansetron HCl (Ondansetron 4 Mg/2 Ml Sdv) 4 mg IVPUSH Q4H PRN PRN Reason: Nausea/Vomiting Last Admin: 08/04/21 07:28 Dose: 4 mg Documented by: Potassium Chloride (Potassium Chloride 20 Meq Tab.Er) 40 meq PO ONETIME ONE Stop: 08/04/21 11:27 Discontinued Medications Hydromorphone HCl (Hydromorphone 2 Mg/Ml Syringe) 0.5 mg IVPUSH Q4H PRN PRN Reason: Pain Last Admin: 08/02/21 22:16 Dose: 0.5 mg Documented by: Hydromorphone HCl (Hydromorphone 1 Mg/Ml Syringe) 0.5 mg IVPUSH Q4H PRN PRN Reason: Pain Last Admin: 08/03/21 20:26 Dose: 0.5 mg Documented by: Sodium Chloride (Normal Saline) 1,000 mls @ 999 mls/hr IV STAT ONE Stop: 08/02/21 11:31 Last Admin: 08/02/21 10:41 Dose: 999 mls/hr Documented by: Lactated Ringer's (Ringers, Lactated) 1,000 mls @ 999 mls/hr IV BOLUS ONE Stop: 08/02/21 21:49 Last Admin: 08/02/21 22:15 Dose: 999 mls/hr Documented by: Ibuprofen (Ibuprofen 400 Mg Tab) 400 mg PO ONETIME ONE Stop: 08/03/21 06:02 Last Admin: 08/03/21 06:57 Dose: 400 mg Documented by: Ibuprofen (Ibuprofen 400 Mg Tab) 400 mg PO ONETIME ONE Stop: 08/03/21 21:13 Last Admin: 08/04/21 10:04 Dose: 400 mg Documented by: Ibuprofen (Ibuprofen 400 Mg Tab) 400 mg PO ONETIME ONE Stop: 08/04/21 09:49 Last Admin: 08/04/21 10:25 Dose: Not Given Documented by: Iopamidol (Iopamidol 755 Mg/Ml 500 Ml Multipack Bottle) 100 ml IVPUSH ONETIME STA Stop: 08/02/21 13:21 Last Admin: 08/02/21 13:20 Dose: 100 ml Documented by: Ketorolac Tromethamine (Ketorolac 30 Mg/Ml Sdv) 30 mg IVPUSH ONETIME ONE Stop: 08/02/21 12:02 Last Admin: 08/02/21 12:09 Dose: 30 mg Documented by: Ketorolac Tromethamine (Ketorolac 30 Mg/Ml Sdv) 15 mg IVPUSH ONETIME ONE Stop: 08/02/21 15:54 Last Admin: 08/02/21 16:14 Dose: 15 mg Documented by: Ondansetron HCl (Ondansetron 4 Mg/2 Ml Sdv) 4 mg IVPUSH ONETIME ONE Stop: 08/02/21 10:32 Last Admin: 08/02/21 10:41 Dose: 4 mg Documented by: Ondansetron HCl (Ondansetron 4 Mg/2 Ml Sdv) 4 mg IVPUSH ONETIME ONE Stop: 08/02/21 12:02 Last Admin: 08/02/21 12:09 Dose: 4 mg Documented by: - Exam General: Alert, Oriented Lungs: Clear to Auscultation, Normal Respiratory Effort Cardiovascular: Regular Rate, Regular Rhythm GI/Abdominal Exam: Soft, Non-Tender, No Distention Extremities: No Pedal Edema Psy/Mental Status: Alert - Patient Data Lab Results Last 24 hrs: Laboratory Results - last 24 hr 08/02/21 08/04/21 08/04/21 Range/Units 12:36 05:20 05:20 WBC 4.18 (4.0-11.0) K/uL RBC 2.77 L (4.30-5.90) M/uL Hgb 8.9 L (12.0-16.0) g/dL Hct 28.1 L (36.0-46.0) % MCV 101.4 H (80.0-98.0) fL MCH 32.1 H (27.0-32.0) pg MCHC 31.7 (31.0-37.0) g/dL RDW Std Deviation 66.7 H (28.0-62.0) fl RDW Coeff of Ga 19 H (11.0-15.0) % Plt Count 195 (150-400) K/uL MPV 10.90 (7.40-12.00) fL Neut % (Auto) 51.4 (48.0-80.0) % Lymph % (Auto) 31.3 (16.0-40.0) % Clarke % (Auto) 12.7 (0.0-15.0) % Eos % (Auto) 3.6 (0.0-7.0) % Baso % (Auto) 1.0 (0.0-1.5) % Neut # (Auto) 2.2 (1.4-5.7) K/uL Lymph # (Auto) 1.3 (0.6-2.4) K/uL Clarke # (Auto) 0.5 (0.0-0.8) K/uL Eos # (Auto) 0.2 (0.0-0.7) K/uL Baso # (Auto) 0.0 (0.0-0.1) K/uL Nucleated RBC % 0.6 /100WBC Nucleated RBCs # 0 K/uL Sodium 136 (136-145) mmol/L Potassium 3.3 L (3.5-5.1) mmol/L Chloride 99 (98-107) mmol/L Carbon Dioxide 21.4 (21.0-32.0) mmol/L BUN 0 L (7.0-18.0) mg/dL Creatinine 0.7 (0.6-1.0) mg/dL Est Cr Clr Drug Dosing 111.65 mL/min Estimated GFR (MDRD) > 60.0 ml/min Glucose 106 (74-106) mg/dL Calcium 8.0 L (8.5-10.1) mg/dL Magnesium (1.8-2.4) mg/dL Total Bilirubin 9.2 H (0.2-1.0) mg/dL AST 193 H (15-37) IU/L ALT 142 H (14-63) IU/L Alkaline Phosphatase 226 H (46-116) U/L Total Protein 5.7 L (6.4-8.2) g/dL Albumin 2.5 L (3.4-5.0) g/dL Globulin 3.2 (2.6-4.0) g/dL Albumin/Globulin Ratio 0.8 L (0.9-1.6) Hepatitis A IgM Ab Negative (Negative) Hep Bs Antigen Negative (Negative) Hep B Core IgM Ab Negative (Negative) Hepatitis C Antibody <0.1 (0.0-0.9) s/co ratio 08/04/21 Range/Units 05:20 WBC (4.0-11.0) K/uL RBC (4.30-5.90) M/uL Hgb (12.0-16.0) g/dL Hct (36.0-46.0) % MCV (80.0-98.0) fL MCH (27.0-32.0) pg MCHC (31.0-37.0) g/dL RDW Std Deviation (28.0-62.0) fl RDW Coeff of Ga (11.0-15.0) % Plt Count (150-400) K/uL MPV (7.40-12.00) fL Neut % (Auto) (48.0-80.0) % Lymph % (Auto) (16.0-40.0) % Clarke % (Auto) (0.0-15.0) % Eos % (Auto) (0.0-7.0) % Baso % (Auto) (0.0-1.5) % Neut # (Auto) (1.4-5.7) K/uL Lymph # (Auto) (0.6-2.4) K/uL Clarke # (Auto) (0.0-0.8) K/uL Eos # (Auto) (0.0-0.7) K/uL Baso # (Auto) (0.0-0.1) K/uL Nucleated RBC % /100WBC Nucleated RBCs # K/uL Sodium (136-145) mmol/L Potassium (3.5-5.1) mmol/L Chloride (98-107) mmol/L Carbon Dioxide (21.0-32.0) mmol/L BUN (7.0-18.0) mg/dL Creatinine (0.6-1.0) mg/dL Est Cr Clr Drug Dosing mL/min Estimated GFR (MDRD) ml/min Glucose (74-106) mg/dL Calcium (8.5-10.1) mg/dL Magnesium 1.4 L (1.8-2.4) mg/dL Total Bilirubin (0.2-1.0) mg/dL AST (15-37) IU/L ALT (14-63) IU/L Alkaline Phosphatase (46-116) U/L Total Protein (6.4-8.2) g/dL Albumin (3.4-5.0) g/dL Globulin (2.6-4.0) g/dL Albumin/Globulin Ratio (0.9-1.6) Hepatitis A IgM Ab (Negative) Hep Bs Antigen (Negative) Hep B Core IgM Ab (Negative) Hepatitis C Antibody (0.0-0.9) s/co ratio Result Diagrams: 08/04/21 05:20 08/04/21 05:20 Sepsis Event Note - Evaluation Sepsis Screening Result: No Definite Risk - Focused Exam Vital Signs: Vital Signs Temp Pulse Resp BP Pulse Ox 08/04/21 08:26 96.9 F 101 H 18 118/78 95 08/04/21 04:00 98.1 F 93 19 128/82 96 08/04/21 00:00 98.2 F 88 18 125/82 98 - Problem List & Annotations (1) Anemia SNOMED Code(s): 476301423 Code(s): D64.9 - ANEMIA, UNSPECIFIED Status: Acute Current Visit: Yes (2) Elevated bilirubin SNOMED Code(s): 09656441 Code(s): R17 - UNSPECIFIED JAUNDICE Status: Acute Current Visit: Yes (3) GERD (gastroesophageal reflux disease) SNOMED Code(s): 379725826 Code(s): K21.9 - GASTRO-ESOPHAGEAL REFLUX DISEASE WITHOUT ESOPHAGITIS Status: Acute Current Visit: Yes (4) Headache SNOMED Code(s): 44295684 Code(s): R51.9 - HEADACHE, UNSPECIFIED Status: Acute Current Visit: Yes (5) Jaundice SNOMED Code(s): 86090825 Code(s): R17 - UNSPECIFIED JAUNDICE Status: Acute Current Visit: Yes - Problem List Review Problem List Initiated/Reviewed/Updated: Yes - My Orders Last 24 Hours: My Active Orders 08/04/21 11:26 Potassium Chloride [Klor-Con M20] 40 meq PO ONETIME ONE 08/04/21 11:36 Magnesium Sulfate/Water [Magnesium Sulfate in Water 4 GM/100 ML] 4 gm Premix Bag 1 bag IV ONETIME - Plan Plan:: Jaundice- Continue to monitor patient CMP, bilirubin levels. I have spoken with Dr. Jain, this morning and discussed the patient. states patient may leave if she is able to based on nauseavomitingability to tolerate diet. Also recommended additional laboratory to include Soluble liver antigen, smooth muscle antibody, EBV, CMV, celiac tests, iron TIBC, ferritin, transferrin, TSH, serial plasmin, alpha-1 antitrypsin, mitochondrial antibody, liver kidney microsomal antibody. All lab work has been ordered results pending. Hepatitis panel received, negative for hepatitis A, B, C. Resume IV fluids, Zofran, advance diet as tolerated. Reassess nausea and ability to tolerate diet the morning. If patient is stable she may be discharged home tomorrow. Patient should schedule follow-up appointment with Dr. Jain in [place] if able to. Headache- Ibuprofen 400 mg p.o. as needed, patient did not tolerate Dilaudid.
[2021-08-04] MEDS ORDERED: Magnesium Sulfate/Water 4 GM in Premix Bag 1 BAG IV ONE (12:00)
[2021-08-04] MEDS ORDERED: Potassium Chloride 20 MEQ Tab.ER PO ONE (12:00)
[2021-08-04] MEDS: Polyethylene Glycol 3350 Powder 17 GM Packet PO SCH (20:36)
[2021-08-05] MEDS: Codeine/guaiFENesin 10-100 MG/5 ML Syrup 5 ML Cup PO PRN ×5 (00:13→20:35)
[2021-08-05] MEDS: Lactated Ringers 1,000 ML IV SCH ×2 (03:49→22:41)
[2021-08-05 07:06] LABS: CARBON DIOXIDE,CO2 28.3 mmol/L (21.0-32.0); CHLORIDE,CL 100 mmol/L (98-107); GLUCOSE RANDOM 112 mg/dL (74-106); POTASSIUM,K 3.3 mmol/L (3.5-5.1); SODIUM,NA 138 mmol/L (136-145)
[2021-08-05 07:13] LABS: BLOOD UREA NITROGEN,BUN 0 mg/dL (7.0-18.0)
[2021-08-05] MEDS: Potassium Chloride 20 MEQ Tab.ER PO ONE ×2 (09:11→09:31)
[2021-08-05] MEDS: Pantoprazole 40 MG in Sodium Chloride 0.9% 10 ML IV SCH (09:11)
[2021-08-05] MEDS: Docusate Sodium 100 MG Cap PO PRN (09:25)
[2021-08-05] MEDS ORDERED: Magnesium Sulfate/Water 2 GM/50 ML Premix Bag IV ONE (09:52)
[2021-08-05] MEDS ORDERED: Magnesium Sulfate/Water 2 GM in Premix Bag 1 BAG IV ONE (10:00)
[2021-08-05] MEDS ORDERED: Potassium Phosphates 30 MMOLE in Sodium Chloride 0.9% 1,000 ML IV SCH (11:00)
--- NOTE | 2021-08-05 16:57 | PCM.PN ---
- General Info Date of Service: 08/05/21 Subjective Update: The patient is a 40-year-old female, on day 4 of service, who has a significant past medical history of GERD, ACL repair of the right knee, and gastric surgery, who was admitted to the floor for jaundice. The jaundice may be secondary to viral hepatitis, hepatitis A, B, and C panels have returned negative however a CMV and EBV are still pending. The jaundice may also be caused by autoimmune hepatitis or other conditions and anti-smooth muscle ant ibodies, microsomal antibodies, and mitochondrial antibodies are all still pending. Upon interview today with the patient, she admits that the nausea and vomiting have subsided. She was on clear liquids this morning and was drinking chicken broth, however asked to be on a regular diet because she is hungry and feels she can hold the food down. The patient was supposed to be discharged today however her magnesium, potassium, and phosphorus levels all came back decreased. Before she can be discharged these have to be corrected or close to the normal range. The headache the patient had earlier in admission has also subsided. The patient has no other complaints at this time. Functional Status: Reports: Tolerating Diet, Urinating - Review of Systems General: Reports: Appetite. Denies: Fever, Fatigue, Chills HEENT: Denies: Headaches Pulmonary: Denies: Shortness of Breath, Cough Cardiovascular: Denies: Chest Pain, Palpitations, Dyspnea on Exertion Gastrointestinal: Denies: Abdominal Pain Genitourinary: Denies: Dysuria - Patient Data Vitals - Most Recent: Last Vital Signs Temp 96.8 F L 08/05/21 15:00 Pulse 77 08/05/21 15:00 Resp 16 08/05/21 15:00 BP 103/63 08/05/21 15:00 Pulse Ox 96 08/05/21 15:00 Weight - Most Recent: 208 lb I&O - Last 24 Hours: Intake & Output 08/05/21 08/05/21 08/05/21 06:59 14:59 22:59 Intake Total 2442 Output Total 1400 1600 Balance 1042 -1600 Lab Results Last 24 Hours: Laboratory Results - last 24 hr 08/05/21 08/05/21 08/05/21 Range/Units 06:10 06:10 06:10 WBC 4.04 (4.0-11.0) K/uL RBC 2.87 L (4.30-5.90) M/uL Hgb 9.2 L (12.0-16.0) g/dL Hct 29.1 L (36.0-46.0) % MCV 101.4 H (80.0-98.0) fL MCH 32.1 H (27.0-32.0) pg MCHC 31.6 (31.0-37.0) g/dL RDW Std Deviation 68.5 H (28.0-62.0) fl RDW Coeff of Ga 19 H (11.0-15.0) % Plt Count 224 (150-400) K/uL MPV 10.30 (7.40-12.00) fL Neut % (Auto) 52.0 (48.0-80.0) % Lymph % (Auto) 32.7 (16.0-40.0) % [place] % (Auto) 11.1 (0.0-15.0) % Eos % (Auto) 3.7 (0.0-7.0) % Baso % (Auto) 0.5 (0.0-1.5) % Neut # (Auto) 2.1 (1.4-5.7) K/uL Lymph # (Auto) 1.3 (0.6-2.4) K/uL [place] # (Auto) 0.5 (0.0-0.8) K/uL Eos # (Auto) 0.2 (0.0-0.7) K/uL Baso # (Auto) 0.0 (0.0-0.1) K/uL Nucleated RBC % 1.1 /100WBC Nucleated RBCs # 0 K/uL Sodium 138 (136-145) mmol/L Potassium 3.3 L (3.5-5.1) mmol/L Chloride 100 (98-107) mmol/L Carbon Dioxide 28.3 (21.0-32.0) mmol/L BUN 0 L (7.0-18.0) mg/dL Creatinine 0.9 (0.6-1.0) mg/dL Est Cr Clr Drug Dosing 86.84 mL/min Estimated GFR (MDRD) > 60.0 ml/min Glucose 112 H (74-106) mg/dL Calcium 8.0 L (8.5-10.1) mg/dL Phosphorus 1.2 L (2.6-4.7) mg/dL Magnesium 1.7 L (1.8-2.4) mg/dL Iron 21 L (50-175) ug/dL TIBC 233 L (250-450) ug/dL % Saturation 9.01 L (20-55) % Transferrin 163.1 Ferritin 209 (8-252) ng/mL Total Bilirubin 8.5 H (0.2-1.0) mg/dL AST 145 H (15-37) IU/L ALT 133 H (14-63) IU/L Alkaline Phosphatase 224 H (46-116) U/L Total Protein 5.7 L (6.4-8.2) g/dL Albumin 2.4 L (3.4-5.0) g/dL Globulin 3.3 (2.6-4.0) g/dL Albumin/Globulin Ratio 0.7 L (0.9-1.6) Free T4 1.10 (0.76-1.46) ng/dL TSH, Ultra Sensitive 5.06 H (0.36-3.74) uIU/mL Med Orders - Current: Current Medications Albuterol/Ipratropium (Albuterol/Ipratropium 3.0-0.5 Mg/3 Ml Neb Soln) 3 ml NEB Q4HRRT PRN PRN Reason: Shortness Of Breath/wheezing Docusate Sodium (Docusate Sodium 100 Mg Cap) 100 mg PO Q12H PRN PRN Reason: Constipation Last Admin: 08/05/21 09:25 Dose: 100 mg Documented by: Guaifenesin/Codeine Phosphate (Codeine/Guaifenesin 10-100 Mg/5 Ml Syrup 5 Ml Cup) 5 ml PO Q4H PRN PRN Reason: Cough Last Admin: 08/05/21 13:28 Dose: 5 ml Documented by: Lactated Ringer's (Ringers, Lactated) 1,000 mls @ 125 mls/hr IV ASDIRECTED DONTE Last Admin: 08/05/21 03:49 Dose: 125 mls/hr Documented by: Pantoprazole Sodium 40 mg/ (Sodium Chloride) 10 mls @ 300 mls/hr IV DAILY DONTE Last Admin: 08/05/21 09:11 Dose: 300 mls/hr Documented by: Potassium Phosphate 30 mmole/ (Sodium Chloride) 1,010 mls @ 150 mls/hr IV ASDIRECTED [facility] Last Admin: 08/05/21 12:47 Dose: 150 mls/hr Documented by: Ondansetron HCl (Ondansetron 4 Mg/2 Ml Sdv) 4 mg IVPUSH Q4H PRN PRN Reason: Nausea/Vomiting Last Admin: 08/04/21 11:42 Dose: 4 mg Documented by: Polyethylene Glycol (Polyethylene Glycol 3350 Powder 17 Gm Packet) 17 gm PO BEDTIME [facility] Last Admin: 08/04/21 20:36 Dose: 17 gm Documented by: Discontinued Medications Hydromorphone HCl (Hydromorphone 2 Mg/Ml Syringe) 0.5 mg IVPUSH Q4H PRN PRN Reason: Pain Last Admin: 08/02/21 22:16 Dose: 0.5 mg Documented by: Hydromorphone HCl (Hydromorphone 1 Mg/Ml Syringe) 0.5 mg IVPUSH Q4H PRN PRN Reason: Pain Last Admin: 08/03/21 20:26 Dose: 0.5 mg Documented by: Sodium Chloride (Normal Saline) 1,000 mls @ 999 mls/hr IV STAT ONE Stop: 08/02/21 11:31 Last Admin: 08/02/21 10:41 Dose: 999 mls/hr Documented by: Lactated Ringer's (Ringers, Lactated) 1,000 mls @ 999 mls/hr IV BOLUS ONE Stop: 08/02/21 21:49 Last Admin: 08/02/21 22:15 Dose: 999 mls/hr Documented by: Magnesium Sulfate 4 gm/ Premix 100 mls @ 50 mls/hr IV ONETIME ONE Stop: 08/04/21 13:59 Last Admin: 08/04/21 12:53 Dose: 50 mls/hr Documented by: Magnesium Sulfate 2 gm/ Premix 50 mls @ 50 mls/hr IV ONETIME ONE Stop: 08/05/21 10:59 Last Admin: 08/05/21 11:34 Dose: 50 mls/hr Documented by: Ibuprofen (Ibuprofen 400 Mg Tab) 400 mg PO ONETIME ONE Stop: 08/03/21 06:02 Last Admin: 08/03/21 06:57 Dose: 400 mg Documented by: Ibuprofen (Ibuprofen 400 Mg Tab) 400 mg PO ONETIME ONE Stop: 08/03/21 21:13 Last Admin: 08/04/21 10:04 Dose: 400 mg Documented by: Ibuprofen (Ibuprofen 400 Mg Tab) 400 mg PO ONETIME ONE Stop: 08/04/21 09:49 Last Admin: 08/04/21 10:25 Dose: Not Given Documented by: Iopamidol (Iopamidol 755 Mg/Ml 500 Ml Multipack Bottle) 100 ml IVPUSH ONETIME STA Stop: 08/02/21 13:21 Last Admin: 08/02/21 13:20 Dose: 100 ml Documented by: Ketorolac Tromethamine (Ketorolac 30 Mg/Ml Sdv) 30 mg IVPUSH ONETIME ONE Stop: 08/02/21 12:02 Last Admin: 08/02/21 12:09 Dose: 30 mg Documented by: Ketorolac Tromethamine (Ketorolac 30 Mg/Ml Sdv) 15 mg IVPUSH ONETIME ONE Stop: 08/02/21 15:54 Last Admin: 08/02/21 16:14 Dose: 15 mg Documented by: Ondansetron HCl (Ondansetron 4 Mg/2 Ml Sdv) 4 mg IVPUSH ONETIME ONE Stop: 08/02/21 10:32 Last Admin: 08/02/21 10:41 Dose: 4 mg Documented by: Ondansetron HCl (Ondansetron 4 Mg/2 Ml Sdv) 4 mg IVPUSH ONETIME ONE Stop: 08/02/21 12:02 Last Admin: 08/02/21 12:09 Dose: 4 mg Documented by: Potassium Chloride (Potassium Chloride 20 Meq Tab.Er) 40 meq PO ONETIME ONE Stop: 08/04/21 12:01 Last Admin: 08/04/21 12:54 Dose: 40 meq Documented by: Potassium Chloride (Potassium Chloride 20 Meq Tab.Er) 40 meq PO ONETIME ONE Stop: 08/05/21 07:31 Last Admin: 08/05/21 09:31 Dose: Not Given Documented by: - Exam General: Alert, Oriented, Cooperative HEENT: Mucous Membr. Moist/[place] Lungs: Clear to Auscultation, Normal Respiratory Effort Cardiovascular: Regular Rate, Regular Rhythm, No Murmurs GI/Abdominal Exam: Normal Bowel Sounds, Soft, Non-Tender, No Organomegaly Extremities: No Pedal Edema - Patient Data Lab Results Last 24 hrs: Laboratory Results - last 24 hr 08/05/21 08/05/21 08/05/21 Range/Units 06:10 06:10 06:10 WBC 4.04 (4.0-11.0) K/uL RBC 2.87 L (4.30-5.90) M/uL Hgb 9.2 L (12.0-16.0) g/dL Hct 29.1 L (36.0-46.0) % MCV 101.4 H (80.0-98.0) fL MCH 32.1 H (27.0-32.0) pg MCHC 31.6 (31.0-37.0) g/dL RDW Std Deviation 68.5 H (28.0-62.0) fl RDW Coeff of Ga 19 H (11.0-15.0) % Plt Count 224 (150-400) K/uL MPV 10.30 (7.40-12.00) fL Neut % (Auto) 52.0 (48.0-80.0) % Lymph % (Auto) 32.7 (16.0-40.0) % [place] % (Auto) 11.1 (0.0-15.0) % Eos % (Auto) 3.7 (0.0-7.0) % Baso % (Auto) 0.5 (0.0-1.5) % Neut # (Auto) 2.1 (1.4-5.7) K/uL Lymph # (Auto) 1.3 (0.6-2.4) K/uL [place] # (Auto) 0.5 (0.0-0.8) K/uL Eos # (Auto) 0.2 (0.0-0.7) K/uL Baso # (Auto) 0.0 (0.0-0.1) K/uL Nucleated RBC % 1.1 /100WBC Nucleated RBCs # 0 K/uL Sodium 138 (136-145) mmol/L Potassium 3.3 L (3.5-5.1) mmol/L Chloride 100 (98-107) mmol/L Carbon Dioxide 28.3 (21.0-32.0) mmol/L BUN 0 L (7.0-18.0) mg/dL Creatinine 0.9 (0.6-1.0) mg/dL Est Cr Clr Drug Dosing 86.84 mL/min Estimated GFR (MDRD) > 60.0 ml/min Glucose 112 H (74-106) mg/dL Calcium 8.0 L (8.5-10.1) mg/dL Phosphorus 1.2 L (2.6-4.7) mg/dL Magnesium 1.7 L (1.8-2.4) mg/dL Iron 21 L (50-175) ug/dL TIBC 233 L (250-450) ug/dL % Saturation 9.01 L (20-55) % Transferrin 163.1 Ferritin 209 (8-252) ng/mL Total Bilirubin 8.5 H (0.2-1.0) mg/dL AST 145 H (15-37) IU/L ALT 133 H (14-63) IU/L Alkaline Phosphatase 224 H (46-116) U/L Total Protein 5.7 L (6.4-8.2) g/dL Albumin 2.4 L (3.4-5.0) g/dL Globulin 3.3 (2.6-4.0) g/dL Albumin/Globulin Ratio 0.7 L (0.9-1.6) Free T4 1.10 (0.76-1.46) ng/dL TSH, Ultra Sensitive 5.06 H (0.36-3.74) uIU/mL Result Diagrams: 08/05/21 06:10 08/05/21 06:10 Sepsis Event Note - Evaluation Sepsis Screening Result: No Definite Risk - Focused Exam Vital Signs: Vital Signs Temp Pulse Resp BP Pulse Ox 08/05/21 15:00 96.8 F L 77 16 103/63 96 08/05/21 11:00 97.1 F 91 16 103/52 L 98 08/05/21 07:00 98.2 F 82 16 103/56 L 95 - Problem List & Annotations (1) Elevated bilirubin SNOMED Code(s): 02294900 Code(s): R17 - UNSPECIFIED JAUNDICE Status: Acute Current Visit: Yes (2) Hepatitis SNOMED Code(s): 137829125 Code(s): K75.9 - INFLAMMATORY LIVER DISEASE, UNSPECIFIED Status: Acute Current Visit: Yes (3) Scleral icterus SNOMED Code(s): 934551236 Code(s): R17 - UNSPECIFIED JAUNDICE Status: Acute Current Visit: Yes (4) Headache SNOMED Code(s): 98983147 Code(s): R51.9 - HEADACHE, UNSPECIFIED Status: Acute Current Visit: Yes (5) GERD (gastroesophageal reflux disease) SNOMED Code(s): 389126074 Code(s): K21.9 - GASTRO-ESOPHAGEAL REFLUX DISEASE WITHOUT ESOPHAGITIS Sta tus: Acute Current Visit: Yes (6) Anemia SNOMED Code(s): 409337427 Code(s): D64.9 - ANEMIA, UNSPECIFIED Status: Acute Current Visit: Yes (7) Hypokalemia SNOMED Code(s): 87170396 Code(s): E87.6 - HYPOKALEMIA Status: Acute Current Visit: Yes (8) Hypomagnesemia SNOMED Code(s): 096350304 Code(s): E83.42 - HYPOMAGNESEMIA Status: Acute Current Visit: Yes (9) Hypophosphatemia SNOMED Code(s): 6664682 Code(s): E83.39 - OTHER DISORDERS OF PHOSPHORUS METABOLISM Status: Acute Current Visit: Yes - Problem List Review Problem List Initiated/Reviewed/Updated: Yes - My Orders Last 24 Hours: My Active Orders 08/05/21 Dinner Regular Diet [DIET] 08/05/21 17:30 BASIC METABOLIC PANEL,BMP [CHEM] Routine MAGNESIUM [CHEM] Routine PHOSPHORUS [CHEM] Routine 08/06/21 05:11 BASIC METABOLIC PANEL,BMP [CHEM] AM MAGNESIUM [CHEM] AM PHOSPHORUS [CHEM] AM - Plan Plan:: 1. Jaundice. -The precise etiology of the patient's jaundice has not been figured out yet, hepatitis A, B, C panels all returned negative, EBV and CMV still pending, antimicrosomal, antimitochondrial antibody, celiac tests, iron TIBC, ferritin, transferrin, TSH, serial plasmin, alpha-1 antitrypsin are still pending. The patient is to follow-up with Dr. Shayna Jain, GI specialist in [place], [place], after being discharged from the hospital. -If the patient continues to feel nauseous Zofran is on board, patient has been transitioned from clear liquid diet to regular diet, we will continue to see if she can tolerate it. 2. Headache -Patient's headache is resolved for now, Motrin is on board if necessary, she did not tolerate her Dilaudid well on last administration, and as a result we will hold it. 4. Anemia -Continue to monitor hemoglobin and blood parameters through daily CBC, once discharged she is to f/u with her PCP in regards to her anemia. 5. Hypomagnesemia -The patient was given a 2 g IV loading dose of magnesium sulfate this afternoon, we will monitor these levels this evening and in the morning. 6. Hypokalemia and hypophosphatemia -Patient was given 30 mmol of potassium phosphate running at 150 mL/hour, will monitor these levels through evening BMP and in the morning.
[2021-08-05 18:08] LABS: BLOOD UREA NITROGEN,BUN 0 mg/dL (7.0-18.0); CARBON DIOXIDE,CO2 24.9 mmol/L (21.0-32.0); CHLORIDE,CL 101 mmol/L (98-107); GLUCOSE RANDOM 111 mg/dL (74-106); POTASSIUM,K 3.5 mmol/L (3.5-5.1); SODIUM,NA 139 mmol/L (136-145)
[2021-08-05] MEDS ORDERED: Ibuprofen 400 MG Tab PO PRN (19:46)
[2021-08-05] MEDS: Phosphorus #1 250 MG Tab PO SCH (20:34)
[2021-08-05] MEDS: Polyethylene Glycol 3350 Powder 17 GM Packet PO SCH (20:38)
[2021-08-06] MEDS: Phosphorus #1 250 MG Tab PO SCH ×3 (00:36→11:30)
[2021-08-06] MEDS: Codeine/guaiFENesin 10-100 MG/5 ML Syrup 5 ML Cup PO PRN (04:49)
[2021-08-06] MEDS: Lactated Ringers 1,000 ML IV SCH (06:36)
[2021-08-06 06:44] LABS: CARBON DIOXIDE,CO2 28.5 mmol/L (21.0-32.0); CHLORIDE,CL 103 mmol/L (98-107); GLUCOSE RANDOM 120 mg/dL (74-106); POTASSIUM,K 3.3 mmol/L (3.5-5.1); SODIUM,NA 140 mmol/L (136-145)
[2021-08-06 06:56] LABS: BLOOD UREA NITROGEN,BUN 0 mg/dL (7.0-18.0)
[2021-08-06] MEDS ORDERED: Potassium Chloride 10% 20 MEQ/15 ML Soln 30 ML UD Cup PO ONE (08:05)
[2021-08-06] MEDS: Pantoprazole 40 MG in Sodium Chloride 0.9% 10 ML IV SCH (08:11)
--- NOTE | 2021-08-06 14:26 | PCM.DCSUM1 ---
Discharge Summary - Hospital Course Free Text/Narrative:: The patient is a 40-year-old female, on day 5 of service, with a significant past medical history of GERD, ACL repair of the right knee, gastric surgery, and headaches, who was admitted to the hospital for jaundice. The patient had a hepatitis panel done to check the etiology of her jaundice however it was negative, CMV, EBV, antimicrosomal antibodies, antimitochondrial antibodies, alpha-1 antitrypsin are all still pending. The patient is to fo llow-up with a GI specialist in [place] after discharge to address her jaundice, elevated bilirubin, elevated AST and ALT, and elevated alkaline phosphatase. While in hospital she had a negative MRCP and no stones or lesions were found. While in hospital she was also suffering from headache and had both Motrin and Dilaudid given at different periods in order to control her symptoms. While in hospital she also had decreased potassium, hypomagnesemia, and hypophosphatemia, which were all corrected before discharge. The patient also had low folic acid levels, low iron levels, and elevated B12 levels. Upon discharge the patient will be given folic acid medication, 1 mg per oral route once a day, and multivitamins with iron in order to replenish her levels. After discharge the patient is to follow-up with the hospital in order to receive a HIDA scan, and will follow up with her PCP Dr. Todd, to have additional blood tests done to check the current levels of her electrolytes and other parameters. The patient is now ready to be discharged. - Discharge Data Discharge Date: 08/06/21 Discharge Disposition: Home, Self-Care 01 Condition: Stable - Referral to Home Health Primary Care Physician: PCP None - Discharge Diagnosis/Problem(s) (1) Elevated bilirubin SNOMED Code(s): 93072542 ICD Code: R17 - UNSPECIFIED JAUNDICE Status: Acute (2) Hepatitis SNOMED Code(s): 062861848 ICD Code: K75.9 - INFLAMMATORY LIVER DISEASE, UNSPECIFIED Status: Acute (3) Scleral icterus SNOMED Code(s): 789053024 ICD Code: R17 - UNSPECIFIED JAUNDICE Status: Acute (4) Headache SNOMED Code(s): 73479699 ICD Code: R51.9 - HEADACHE, UNSPECIFIED Status: Acute (5) GERD (gastroesophageal reflux disease) SNOMED Code(s): 291055093 ICD Code: K21.9 - GASTRO-ESOPHAGEAL REFLUX DISEASE WITHOUT ESOPHAGITIS Status: Acute (6) Anemia SNOMED Code(s): 143412324 ICD Code: D64.9 - ANEMIA, UNSPECIFIED Status: Acute (7) Hypokalemia SNOMED Code(s): 98341025 ICD Code: E87.6 - HYPOKALEMIA Status: Acute (8) Hypomagnesemia SNOMED Code(s): 698288952 ICD Code: E83.42 - HYPOMAGNESEMIA Status: Acute (9) Hypophosphatemia SNOMED Code(s): 2744230 ICD Code: E83.39 - OTHER DISORDERS OF PHOSPHORUS METABOLISM Status: Acute - Patient Instructions Diet: Regular Diet as Tolerated Activity: As Tolerated Showering/Bathing: May Shower Other/Special Instructions: -Be compliant with medications and take them at recommended times. -Follow up with PCP Dr. Todd in 1 weeks time. -Follow up with GI specialist in [place], you will be called with appointment time. -Have HIDA scan done here at the hospital. -If you experience nausea, vomiting, dizzyness, or yellow discoloration of skin or eyes, come back to the hospital - Discharge Plan Prescriptions/Med Rec: Folic Acid 1 mg PO DAILY #30 tab Multivitamins with Iron [Vitalets] 1 each PO DAILY #30 tab.chew Home Medications: Home Meds Folic Acid 1 mg PO DAILY #30 tab 08/06/21 [Rx] Multivitamins with Iron [Vitalets] 1 each PO DAILY #30 tab.chew 08/06/21 [Rx] Patient Handouts: Jaundice, Adult, Folic Acid, Vitamin B9 tablets Referrals: Shayna Jain MD [Ordering Only Provider] - Harvey Todd MD [Resident] - 08/16/21 2:30 pm - Discharge Summary/Plan Comment DC Time >30 min.: Yes Total # of Minutes for Discharge Time: 35 minutes - Review of Systems General: Denies: Fever, Weakness, Fatigue HEENT: Denies: Headaches, Sore Throat Pulmonary: Denies: Shortness of Breath, Pleuritic Chest Pain, Cough Cardiovascular: Denies: Chest Pain, Palpitations Gastrointestinal: Denies: Abdominal Pain Genitourinary: Denies: Dysuria Skin: Denies: Bruising Neurological: Denies: Headache - Patient Data Vitals - Most Recent: Last Vital Signs Temp 97.4 F 08/06/21 11:29 Pulse 81 08/06/21 11:29 Resp 16 08/06/21 11:29 BP 112/78 08/06/21 11:29 Pulse Ox 94 L 08/06/21 07:00 Weight - Most Recent: 208 lb I&O - Last 24 hours: Intake & Output 08/05/21 08/06/21 08/06/21 22:59 06:59 14:59 Intake Total 4162 125 Output Total 1600 1000 Balance -1600 3162 125 Lab Results - Last 24 hrs: Laboratory Results - last 24 hr 08/05/21 08/06/21 08/06/21 Range/Units 17:41 00:05 06:05 Sodium 139 140 (136-145) mmol/L Potassium 3.5 3.3 L (3.5-5.1) mmol/L Chloride 101 103 (98-107) mmol/L Carbon Dioxide 24.9 28.5 (21.0-32.0) mmol/L BUN 0 L 0 L (7.0-18.0) mg/dL Creatinine 0.8 0.7 (0.6-1.0) mg/dL Est Cr Clr Drug Dosing 97.69 111.65 mL/min Estimated GFR (MDRD) > 60.0 > 60.0 ml/min Glucose 111 H 120 H (74-106) mg/dL Calcium 7.7 L 7.9 L (8.5-10.1) mg/dL Phosphorus 1.9 L 3.0 (2.6-4.7) mg/dL Magnesium 2.1 1.9 (1.8-2.4) mg/dL Vitamin B12 1499 H (193-986) pg/mL Folate 6.60 L (8.60-58.90) ng/mL Med Orders - Current: Current Medications Discontinued Medications Albuterol/Ipratropium (Albuterol/Ipratropium 3.0-0.5 Mg/3 Ml Neb Soln) 3 ml NEB Q4HRRT PRN PRN Reason: Shortness Of Breath/wheezing Docusate Sodium (Docusate Sodium 100 Mg Cap) 100 mg PO Q12H PRN PRN Reason: Constipation Last Admin: 08/05/21 09:25 Dose: 100 mg Documented by: Guaifenesin/Codeine Phosphate (Codeine/Guaifenesin 10-100 Mg/5 Ml Syrup 5 Ml Cup) 5 ml PO Q4H PRN PRN Reason: Cough Last Admin: 08/06/21 04:49 Dose: 5 ml Documented by: Hydromorphone HCl (Hydromorphone 2 Mg/Ml Syringe) 0.5 mg IVPUSH Q4H PRN PRN Reason: Pain Last Admin: 08/02/21 22:16 Dose: 0.5 mg Documented by: Hydromorphone HCl (Hydromorphone 1 Mg/Ml Syringe) 0.5 mg IVPUSH Q4H PRN PRN Reason: Pain Last Admin: 08/03/21 20:26 Dose: 0.5 mg Documented by: Sodium Chloride (Normal Saline) 1,000 mls @ 999 mls/hr IV STAT ONE Stop: 08/02/21 11:31 Last Admin: 08/02/21 10:41 Dose: 999 mls/hr Documented by: Lactated Ringer's (Ringers, Lactated) 1,000 mls @ 125 mls/hr IV ASDIRECTED [facility] Last Admin: 08/06/21 06:36 Dose: 125 mls/hr Documented by: Lactated Ringer's (Ringers, Lactated) 1,000 mls @ 999 mls/hr IV BOLUS ONE Stop: 08/02/21 21:49 Last Admin: 08/02/21 22:15 Dose: 999 mls/hr Documented by: Pantoprazole Sodium 40 mg/ (Sodium Chloride) 10 mls @ 300 mls/hr IV DAILY [facility] Last Infusion: 08/06/21 08:14 Dose: Infused Documented by: Magnesium Sulfate 4 gm/ Premix 100 mls @ 50 mls/hr IV ONETIME ONE Stop: 08/04/21 13:59 Last Admin: 08/04/21 12:53 Dose: 50 mls/hr Documented by: Potassium Phosphate 30 mmole/ (Sodium Chloride) 1,010 mls @ 150 mls/hr IV ASDIRECTED [facility] Last Admin: 08/05/21 12:47 Dose: 150 mls/hr Documented by: Magnesium Sulfate 2 gm/ Premix 50 mls @ 50 mls/hr IV ONETIME ONE Stop: 08/05/21 10:59 Last Admin: 08/05/21 11:34 Dose: 50 mls/hr Documented by: Ibuprofen (Ibuprofen 400 Mg Tab) 400 mg PO ONETIME ONE Stop: 08/03/21 06:02 Last Admin: 08/03/21 06:57 Dose: 400 mg Documented by: Ibuprofen (Ibuprofen 400 Mg Tab) 400 mg PO ONETIME ONE Stop: 08/03/21 21:13 Last Admin: 08/04/21 10:04 Dose: 400 mg Documented by: Ibuprofen (Ibuprofen 400 Mg Tab) 400 mg PO ONETIME ONE Stop: 08/04/21 09:49 Last Admin: 08/04/21 10:25 Dose: Not Given Documented by: Ibuprofen (Ibuprofen 400 Mg Tab) 400 mg PO Q6H PRN PRN Reason: Pain Last Admin: 08/05/21 20:34 Dose: 400 mg Documented by: Iopamidol (Iopamidol 755 Mg/Ml 500 Ml Multipack Bottle) 100 ml IVPUSH ONETIME STA Stop: 08/02/21 13:21 Last Admin: 08/02/21 13:20 Dose: 100 ml Documented by: Ketorolac Tromethamine (Ketorolac 30 Mg/Ml Sdv) 30 mg IVPUSH ONETIME ONE Stop: 08/02/21 12:02 Last Admin: 08/02/21 12:09 Dose: 30 mg Documented by: Ketorolac Tromethamine (Ketorolac 30 Mg/Ml Sdv) 15 mg IVPUSH ONETIME ONE Stop: 08/02/21 15:54 Last Admin: 08/02/21 16:14 Dose: 15 mg Documented by: Ondansetron HCl (Ondansetron 4 Mg/2 Ml Sdv) 4 mg IVPUSH ONETIME ONE Stop: 08/02/21 10:32 Last Admin: 08/02/21 10:41 Dose: 4 mg Documented by: Ondansetron HCl (Ondansetron 4 Mg/2 Ml Sdv) 4 mg IVPUSH ONETIME ONE Stop: 08/02/21 12:02 Last Admin: 08/02/21 12:09 Dose: 4 mg Documented by: Ondansetron HCl (Ondansetron 4 Mg/2 Ml Sdv) 4 mg IVPUSH Q4H PRN PRN Reason: Nausea/Vomiting Last Admin: 08/04/21 11:42 Dose: 4 mg Documented by: Polyethylene Glycol (Polyethylene Glycol 3350 Powder 17 Gm Packet) 17 gm PO BEDTIME [facility] Last Admin: 08/05/21 20:38 Dose: Not Given Documented by: Potassium Chloride (Potassium Chloride 20 Meq Tab.Er) 40 meq PO ONETIME ONE Stop: 08/04/21 12:01 Last Admin: 08/04/21 12:54 Dose: 40 meq Documented by: Potassium Chloride (Potassium Chloride 20 Meq Tab.Er) 40 meq PO ONETIME ONE Stop: 08/05/21 07:31 Last Admin: 08/05/21 09:31 Dose: Not Given Documented by: Potassium Chloride (Potassium Chloride 10% 20 Meq/15 Ml Soln 30 Ml Ud Cup) 40 meq PO ONETIME ONE Stop: 08/06/21 08:06 Last Admin: 08/06/21 08:16 Dose: 40 meq Documented by: Sodium Phosphate (Phosphorus #1 250 Mg Tab) 250 mg PO QID [facility] Last Admin: 08/06/21 11:30 Dose: 250 mg Documented by: - Exam General: Reports: Alert, Oriented, Cooperative HEENT: Reports: Mucous Membr. Moist/[place] Neck: Reports: Trachea Midline Lungs: Reports: Clear to Auscultation, Normal Respiratory Effort Cardiovascular: Reports: Regular Rate, Regular Rhythm, No Murmurs GI/Abdominal Exam: Normal Bowel Sounds, Soft, Non-Tender, No Organomegaly
== END 2021-08-06 12:50 | disposition home or self-care (01) ==
LOC: MW.ED 09:39 → MW.MS 19:35 → INTOOBSV 08-04 17:45 → OBSVTOIN 08-04 17:45 → MW.MS 08-04 18:44
PROVIDERS: ADMIT Student in an Organized Health Care Education/Training Program; ATTEND Student in an Organized Health Care Education/Training Program
DX: R17 Unspecified jaundice (principal); K21.9 Gastro-esophageal reflux disease without esophagitis; E16.2 Hypoglycemia, unspecified; E66.9 Obesity, unspecified; D64.9 Anemia, unspecified; E87.6 Hypokalemia; E83.42 Hypomagnesemia; E83.39 Other disorders of phosphorus metabolism; Z88.2 Allergy status to sulfonamides; Z88.8 Allergy status to other drugs, medicaments and biological substances
CPT/HCPCS: 36415; 71045; 74177; 74181; 76705; 80048; 80053; 80074; 80143; 80179; 80305; 80307; 81001; 82103; 82104; 82140; 82247; 82248; 82390; 82607; 82728; 82746; 82803; 82947; 83516; 83520; 83550; 83605; 83690; 83735; 84100; 84439; 84443; 84703; 85025; 85610; 86038; 86225; 86255; 86256; 86376; 86645; 86663; 86664; 86665; 87497; 87635; 87799; 96365; 96366; 96367; 96375; 96376; 99285; A9270; C9113; G0378; J1170; J1885; J2405; J3475; J7030; J7120; Q9967; 96374; U0002

== ENCOUNTER 2021-09-22 16:52 | Inpatient (IN) | payer BC, MEDICAID ==
--- NOTE | 2021-09-22 17:17 | PCM.EKG ---
#1 Interpretation EKG Date: 09/22/21 Time: 17:08 Rhythm: NSR Rate (Beats/Min): 118 [place]: Normal P-Wave: Present QRS: Normal ST-T: Normal QT: Normal Comparison: No Change (03/04/21) EKG Interpretation Comments: Sinus Tachycardia
[2021-09-22] MEDS ORDERED: Ketorolac 15 MG/ML SDV IVPUSH ONE (17:40)
[2021-09-22] MEDS ORDERED: diphenhydrAMINE 50 MG/ML SDV IVPUSH ONE (17:40)
[2021-09-22] MEDS ORDERED: Prochlorperazine 10 MG/2 ML SDV IVPUSH ONE (17:40)
[2021-09-22] MEDS ORDERED: Ondansetron 4 MG/2 ML SDV IVPUSH ONE ×2 (17:41→22:48)
--- NOTE | 2021-09-22 17:57 | EDM.PDOC ---
<Rashawn Sidhu - Last Filed: 09/22/21 19:13> ED HPI GENERAL MEDICAL PROBLEM - General Chief Complaint: Headache Stated Complaint: HEADACHE, VOMITTING, CHEST PAIN Time Seen by Provider: 09/22/21 17:22 - History of Present Illness INITIAL COMMENTS - FREE TEXT/NARRATIVE: CHIEF COMPLAINT(S): Headache and chest pain HISTORY OF PRESENT ILLNESS: This is a 40-year-old woman with a past medical history of jaundice of unknown origin, GERD/peptic ulcer disease who comes to the emergency department with a chief complaint of headache and chest pain. The patient states that she has been experiencing headache for approximately 3 to 4 days now. She describes it as bifrontal not associated with any blurry vision, loss of vision, trouble walking speaking or swallowing. She denies any head injury or loss of consciousness. She denies any neck pain or stiffness. She denies any fevers. She states that she does not have a history of headaches but that she when she was admitted for her jaundice she apparently was treated for headache at that time with Toradol. She states that associated with this headache she has some nausea and vomiting and has not been able to tolerate any of her medications or food for the last 3 days. She states that she feels severely dehydrated. She currently rates her pain as 10 out of 10. There are no exacerbating or relieving factors. She has not been able to try anything therefore there are no relieving factors. In addition to the headache the patient had experienced some central chest pain today which she states that might be because she has been vomiting so much. She denies any karena hematemesis but does say she has streaks of blood in her vomit. She denies any abdominal pain, diarrhea, melena, hematochezia or hematemesis. She states that she did follow-up with a GI specialist where they did an EGD and colonoscopy with biopsies but they do not know any results of that yet. She states that the liver biopsy was normal. They are uncertain as to what is causing her jaundice as every lab and work-up has been negative. She denies any recent travel, recent surgery, prior history of DVT or PE. She denies any history of ACS. REVIEW OF SYSTEMS: Constitutional: Denies fever, chills. Eyes: Denies eye pain Ears, Nose, Mouth, & Throat: Denies earache Cardiovascular: Positive for chest pain Respiratory: Denies shortness of breath Gastrointestinal: Positive for nausea and vomiting. Denies diarrhea, medic easier, melena, hematemesis, bilious emesis Genitourinary: Denies hematuria Skin:Denies a rash MSK: Denies joint pain Neurological:, Positive for headache. Denies blurred vision, double vision, loss of vision, numbness, tingling, weakness Psychiatric: Denies depression PAST MEDICAL HISTORY: As per history of present illness and as reviewed below otherwise noncontributory. SURGICAL HISTORY: As per history of present illness and as reviewed below otherwise noncontributory. SOCIAL HISTORY: As per history of present illness and as reviewed below otherwise noncontributory. FAMILY HISTORY: As per history of present illness and as reviewed below otherwise noncontributory. EXAMINATION OF ORGAN SYSTEMS/BODY AREAS: Constitutional: Blood pressure is 135/99, heart rate 107, respiratory rate 20 with an oxygen saturation of 98% on room air. Temperature 35.9 temporal General: Young woman who does not appear to be in any acute distress. Psychiatric: Appropriate mood and affect. Eyes: No scleral icterus or conjunctival erythema pupils were equal round and reactive to light. Extraocular movements intact. No vertical or horizontal nystagmus. No proptosis. ENMT: Dry mucous membranes. No pharyngeal erythema no blood in the oropharynx Cardiovascular: Tachycardic but regular no gallops, murmurs, or rubs. Bilateral upper extremity pulses symmetric and intact. No peripheral edema. No JVD. Respiratory: Lungs clear to auscultation bilaterally. No wheezes, rales, or rhonchi. Gastrointestinal: Soft, non-tender, non-distended. Normoactive bowel sounds Genitourinary: No suprapubic tenderness Musculoskeletal: Normal range of motion. Skin: No lesions or abrasions. Neurological: AOx4. CN grossly intact. Strength 5/5 in bilateral upper and lower extremity. Sensation is intact bilaterally in upper and lower extremity. Gait appears normal. MEDICAL DECISION MAKING AND COURSE IN THE ED WITH INTERPRETATION/REVIEW OF DI AGNOSTIC STUDIES: This is a 40-year-old woman with a past medical history of jaundice and GERD/peptic ulcer disease on omeprazole who comes to the emergency department with 3 days of headache and intractable vomiting who is neurologically intact with mild tachycardia. At this time I do believe the patient's chest pain is likely secondary to possibly a Hannah-Rodgers tear given the streaks of blood in the patient's vomit. We will provide the patient with Toradol, Compazine and Benadryl to treat the headache and the nausea at the same time. At this time I do not believe any intracranial imaging is indicated. Given the chest pain we did obtain an EKG which was unremarkable. We will undergo a cardiac work-up. We will provide the patient 1 L of D5 lactated Ringer's given the dehydration and reevaluate. Cardiac monitoring at this time did reveal sinus rhythm and pulse oximetry with good waveform was 94 to 95% on room air. DDx: Headache/migraine, dehydration, ACS Laboratory: CBC reveals a normocytic anemia with a hemoglobin of 11.7 hematocrit of 37.5. BMP reveals hyponatremia 135, metabolic acidosis with bicarbonate of 9.6 otherwise unremarkable. Troponin is negative. The radiological images were viewed by myself along with reading the report from the radiologist. Chest x-ray does not reveal any acute cardiopulmonary process. On reevaluation the patient reported significant improvement in her headache and nausea. She was able to tolerate some ice chips. I did discuss her at this time that I do believe that she is quite dehydrated and that I would like to provide her with an additional D5 LR bolus and additional lactated Ringer's bolus. She was amenable to this plan. Patient was signed out to oncoming night team physician pending reevaluation and final disposition DISPOSITION: Patient was signed out to oncoming day team physician pending reevaluation and final disposition CONDITION: Fair PROCEDURES: Cardiac monitoring interpretation, pulse oximetry interpretation FINAL IMPRESSION(S)/DIAGNOSES: 1. Acute headache likely secondary to migraine headache versus dehydration 2. Acute metabolic acidosis likely secondary to vomiting and dehydration 3. Acute chest pain Rashawn Sidhu M.D. Headache Pain Score (Numeric/FACES): 10 - Related Data Allergies Allergy/AdvReac Type Severity Reaction Status Date / Time cephalexin [From Keflex] Allergy Rash Verified 09/22/21 17:03 Sulfa (Sulfonamide Allergy Rash Verified 09/22/21 17:03 Antibiotics) Home Meds: Home Meds Folic Acid 1 mg PO DAILY #30 tab 08/06/21 [Rx] Multivitamins with Iron [Vitalets] 1 each PO DAILY #30 tab.chew 08/06/21 [Rx] ondansetron HCL [Zofran] 4 mg PO DAILY #30 tablet 08/07/21 [Rx] Famotidine 40 mg PO 09/22/21 [History] Omeprazole 20 mg PO 09/22/21 [History] hydrOXYzine HCL [Hydroxyzine HCl] 25 mg PO 09/22/21 [History] Past Medical History - Past Health History Medical/Surgical History: Denies Medical/Surgical History HEENT History: Reports: None Cardiovascular History: Reports: None Respiratory History: Reports: None Gastrointestinal History: Reports: GERD, Jaundice Genitourinary History: Reports: None PRESSURIZER History: Reports: , Spontaneous Musculoskeletal History: Reports: None Neurological History: Reports: None, Other (See Below) Other Neuro History: was in a drug induced coma for a week to correct electrolyte imbalance from water intoxication Psychiatric History: Reports: Depression Endocrine/Metabolic History: Reports: Obesity/BMI 30+ Hematologic History: Reports: None Immunologic History: Reports: None Oncologic (Cancer) History: Reports: None Dermatologic History: Reports: None - Infectious Disease History Infectious Disease History: Reports: None - Past Surgical History Head Surgeries/Procedures: Reports: None HEENT Surgical History: Reports: None Cardiovascular Surgical History: Reports: None Respiratory Surgical History: Reports: None GI Surgical History: Reports: Bariatric Procedure Female Surgical History: Reports: None Endocrine Surgical History: Reports: None Musculoskeletal Surgical History: Reports: Other (See Below) Other Musculoskeletal Surgeries/Procedures:: ACL Repair right knee (has screw) plus arthroscopy to repair meniscus tear Oncologic Surgical History: Reports: None Dermatological Surgical History: Reports: None Social & Family History - Family History Family Medical History: No Pertinent Family History - Tobacco Use Second Hand Smoke Exposure: No - Caffeine Use Caffeine Use: Reports: None - Recreational Drug Use Recreational Drug Use: No ED ROS GENERAL - Review of Systems Review Of Systems: See Below ED EXAM, GENERAL - Physical Exam Exam: See Below Departure - Departure Disposition: Admitted As Inpatient 66 Clinical Impression: High anion gap metabolic acidosis, Dehydration, Headache - Discharge Information Referrals: PCP,None [Primary Care Provider] - Forms: ED Department Discharge Sepsis Event Note (ED) - Evaluation Sepsis Screening Result: No Definite Risk <Claus Gibson - Last Filed: 09/22/21 23:03> ED HPI GENERAL MEDICAL PROBLEM - History of Present Illness INITIAL COMMENTS - FREE TEXT/NARRATIVE: 7:20 PM: Signout received at 7 PM. Patient seen and evaluated by me. Patient reports that she came to the ED today secondary to worsening headache followed by increased episodes of nausea and vomiting. Patient reports that she was admitted to the hospital here a couple months ago secondary to jaundice and had a complete work-up that was unremarkable. Patient reports that the jaundice resolved spontaneously and they have not come up with a definitive diagnosis as to why she became jaundiced. Patient reports after being discharged in the hospital she has had a full GI work-up with endoscopies and colonoscopies that have been unremarkable. Patient reports that she has been on Zofran at home which is assisted her with her nausea and vomiting. Patient reports that she has been doing well up until approximately 1 to 2 days ago when she started having worsening headaches and then started having increased episodes of emesis. Patient denies any significant alcohol use. Patient reports that her last alcoholic beverage was approximately 2 weeks ago. Patient denies any significant acetaminophen ingestion. Patient reports that she has been taking ibuprofen at home for her headaches. Patient denies any recent fevers, shakes, chills. Patient reports mild URI symptoms that are unremarkable for her. Patient denies any dysuria, frequency, urgency. Patient denies any abdominal pain or discomfort. Patient reports that she feels significantly improved after the 2 L of IV fluids that she received here and the Toradol. Patient reports that she still has a mild headache but it is significantly improved from when she first arrived. Patient reports that her nausea has also subsided at this time. Patient has a significant acidosis at this time with a significant anion gap of 27 and a bicarb of 10. I will repeat her CMP after IV fluids and also obtain a venous blood gas to assess her acid-base status. Patient looks clinically euvo lemic at this time and does not appear to have clinical evidence of severe metabolic acidosis. Patient's respiratory status is stable and she appears to be extremely comfortable and resting here in the ED. I will initiate 1/3 L of fluids while we are awaiting her repeat labs. Patient influenza and Covid test Are both negative in ED. Course - Vital Signs Last Recorded V/S: Last Vital Signs Temp 96.8 F L 09/22/21 20:58 Pulse 62 09/22/21 22:20 Resp 18 09/22/21 22:20 BP 116/69 09/22/21 22:20 Pulse Ox 96 09/22/21 22:20 - Orders/Labs/Meds Orders: Active Orders 24 hr Category Date Time Status Patient Status [ADT] Routine ADT 09/22/21 23:01 Ordered EKG Documentation Completion [RC] AM Care 09/22/21 19:54 Active EKG Documentation Completion [RC] AM Care 09/22/21 20:08 Active ABG [BLOOD GAS ARTERIAL] [BG] Stat Lab 09/22/21 20:07 Ordered CULTURE BLOOD [BC] Stat Lab 09/22/21 20:27 Received CULTURE BLOOD [BC] Stat Lab 09/22/21 20:33 Received OSMOLALITY - SERUM [REF] Stat Lab 09/22/21 18:05 Received Dextrose 5%-Lactated Ringers 1,000 ml Med 09/22/21 17:45 Active IV ASDIRECTED Dextrose 5%-Lactated Ringers 1,000 ml Med 09/22/21 18:45 Active IV ASDIRECTED Lactated Ringers [Ringers, Lactated] 1,000 ml Med 09/22/21 19:30 Active IV .BOLUS Lactated Ringers [Ringers, Lactated] 1,000 ml Med 09/22/21 18:45 Active IV ASDIRECTED Blood Culture x2 Reflex Set [OM.PC] Stat Oth 09/22/21 19:56 Ordered Medication Orders Dextrose/Lactated Ringer's (Dextrose 5%-Lactated Ringers) 1,000 mls @ 999 mls/hr IV ASDIRECTED DONTE Last Infusion: 09/22/21 19:20 Dose: 999 mls/hr Documented by: Admin: 09/22/21 18:19 Dose: 999 mls/hr Documented by: RONNIE Lactated Ringer's (Ringers, Lactated) 1,000 mls @ 999 mls/hr IV ASDIRECTED DONTE Last Admin: 09/22/21 20:57 Dose: 999 mls/hr Documented by: ANGÉLICA Dextrose/Lactated Ringer's (Dextrose 5%-Lactated Ringers) 1,000 mls @ 999 mls/hr IV ASDIRECTED DONTE Last Admin: 09/22/21 20:31 Dose: 999 mls/hr Documented by: ANGÉLICA Lactated Ringer's (Ringers, Lactated) 1,000 mls @ 999 mls/hr IV .BOLUS DONTE Last Admin: 09/22/21 22:54 Dose: 999 mls/hr Documented by: ANGÉLICA Labs: Laboratory Tests 09/22/21 09/22/21 09/22/21 Range/Units 18:05 18:05 18:05 WBC 3.33 L (4.0-11.0) K/uL RBC 3.85 L (4.30-5.90) M/uL Hgb 11.7 L (12.0-16.0) g/dL Hct 37.5 (36.0-46.0) % MCV 97.4 (80.0-98.0) fL MCH 30.4 (27.0-32.0) pg MCHC 31.2 (31.0-37.0) g/dL RDW Std Deviation 56.0 (28.0-62.0) fl RDW Coeff of Ga 16 H (11.0-15.0) % Plt Count 263 (150-400) K/uL MPV 10.00 (7.40-12.00) fL Neut % (Auto) 44.8 L (48.0-80.0) % Lymph % (Auto) 38.7 (16.0-40.0) % [place] % (Auto) 12.6 (0.0-15.0) % Eos % (Auto) 2.1 (0.0-7.0) % Baso % (Auto) 1.8 H (0.0-1.5) % Neut # (Auto) 1.5 (1.4-5.7) K/uL Lymph # (Auto) 1.3 (0.6-2.4) K/uL [place] # (Auto) 0.4 (0.0-0.8) K/uL Eos # (Auto) 0.1 (0.0-0.7) K/uL Baso # (Auto) 0.1 (0.0-0.1) K/uL Nucleated RBC % 0.0 /100WBC Nucleated RBCs # 0 K/uL INR APTT (18.6-31.3) SEC VBG pH (7.31-7.41) VBG pCO2 (41-51) mmHG VBG pO2 mmHG VBG HCO3 (23-28) mEq/L VBG Total CO2 (24-29) mmol/L VBG Base Excess (-2.0-3.0) Sodium 135 L (136-145) mmol/L Potassium 3.6 (3.5-5.1) mmol/L Chloride 98 (98-107) mmol/L Carbon Dioxide 9.6 L (21.0-32.0) mmol/L BUN 3 L (7.0-18.0) mg/dL Creatinine 0.9 (0.6-1.0) mg/dL Est Cr Clr Drug Dosing 86.84 mL/min Estimated GFR (MDRD) > 60.0 ml/min Glucose 74 (74-106) mg/dL Lactic Acid (0.4-2.0) mmol/L Calcium 8.3 L (8.5-10.1) mg/dL Magnesium 1.9 (1.8-2.4) mg/dL Total Bilirubin (0.2-1.0) mg/dL AST (15-37) IU/L ALT (14-63) IU/L Alkaline Phosphatase (46-116) U/L Troponin I < 0.050 (0.000-0.056) ng/mL Total Protein (6.4-8.2) g/dL Albumin (3.4-5.0) g/dL Globulin (2.6-4.0) g/dL Albumin/Globulin Ratio (0.9-1.6) Lipase 159 (73-393) U/L Urine Color Urine Appearance Urine pH (5.0-8.0) Ur Specific [place] (1.001-1.035) Urine Protein (NEGATIVE) mg/dL Urine Glucose (UA) (NEGATIVE) mg/dL Urine Ketones (NEGATIVE) mg/dL Urine Occult Blood (NEGATIVE) Urine Nitrite (NEGATIVE) Urine Bilirubin (NEGATIVE) Urine Urobilinogen (<2.0) EU/dL Ur Leukocyte Esterase (NEGATIVE) Urine RBC (0-2/HPF) Urine WBC (0-5/HPF) Ur Epithelial Cells (NONE-FEW) Urine Bacteria (NEGATIVE) Urine HCG, Qual (NEGATIVE) Urine Opiates Screen (NEGATIVE) Ur Oxycodone Screen (NEGATIVE) Urine Methadone Screen (NEGATIVE) Acetaminophen ug/mL Ur Barbiturates Screen (NEGATIVE) Ur Phencyclidine Scrn (NEGATIVE) Ur Amphetamine Screen (NEGATIVE) U Methamphetamines Scrn (NEGATIVE) U Benzodiazepines Scrn (NEGATIVE) U Cocaine Metab Screen (NEGATIVE) U Marijuana (THC) Screen (NEGATIVE) Ketones (NEG) Influenza Type A RNA (NEGATIVE) Influenza Type B RNA (NEGATIVE) SARS-CoV-2 RNA (KALE) (NEGATIVE) 09/22/21 09/22/21 09/22/21 Range/Units 18:05 18:05 18:05 WBC (4.0-11.0) K/uL RBC (4.30-5.90) M/uL Hgb (12.0-16.0) g/dL Hct (36.0-46.0) % MCV (80.0-98.0) fL MCH (27.0-32.0) pg MCHC (31.0-37.0) g/dL RDW Std Deviation (28.0-62.0) fl RDW Coeff of Ga (11.0-15.0) % Plt Count (150-400) K/uL MPV (7.40-12.00) fL Neut % (Auto) (48.0-80.0) % Lymph % (Auto) (16.0-40.0) % [place] % (Auto) (0.0-15.0) % Eos % (Auto) (0.0-7.0) % Baso % (Auto) (0.0-1.5) % Neut # (Auto) (1.4-5.7) K/uL Lymph # (Auto) (0.6-2.4) K/uL [place] # (Auto) (0.0-0.8) K/uL Eos # (Auto) (0.0-0.7) K/uL Baso # (Auto) (0.0-0.1) K/uL Nucleated RBC % /100WBC Nucleated RBCs # K/uL INR 1.13 APTT 26.1 (18.6-31.3) SEC VBG pH (7.31-7.41) VBG pCO2 (41-51) mmHG VBG pO2 mmHG VBG HCO3 (23-28) mEq/L VBG Total CO2 (24-29) mmol/L VBG Base Excess (-2.0-3.0) Sodium (136-145) mmol/L Potassium (3.5-5.1) mmol/L Chloride (98-107) mmol/L Carbon Dioxide (21.0-32.0) mmol/L BUN (7.0-18.0) mg/dL Creatinine (0.6-1.0) mg/dL Est Cr Clr Drug Dosing mL/min Estimated GFR (MDRD) ml/min Glucose (74-106) mg/dL Lactic Acid (0.4-2.0) mmol/L Calcium (8.5-10.1) mg/dL Magnesium (1.8-2.4) mg/dL Total Bilirubin (0.2-1.0) mg/dL AST (15-37) IU/L ALT (14-63) IU/L Alkaline Phosphatase (46-116) U/L Troponin I (0.000-0.056) ng/mL Total Protein (6.4-8.2) g/dL Albumin (3.4-5.0) g/dL Globulin (2.6-4.0) g/dL Albumin/Globulin Ratio (0.9-1.6) Lipase (73-393) U/L Urine Color Urine Appearance Urine pH (5.0-8.0) Ur Specific [place] (1.001-1.035) Urine Protein (NEGATIVE) mg/dL Urine Glucose (UA) (NEGATIVE) mg/dL Urine Ketones (NEGATIVE) mg/dL Urine Occult Blood (NEGATIVE) Urine Nitrite (NEGATIVE) Urine Bilirubin (NEGATIVE) Urine Urobilinogen (<2.0) EU/dL Ur Leukocyte Esterase (NEGATIVE) Urine RBC (0-2/HPF) Urine WBC (0-5/HPF) Ur Epithelial Cells (NONE-FEW) Urine Bacteria (NEGATIVE) Urine HCG, Qual (NEGATIVE) Urine Opiates Screen (NEGATIVE) Ur Oxycodone Screen (NEGATIVE) Urine Methadone Screen (NEGATIVE) Acetaminophen <2.0 ug/mL Ur Barbiturates Screen (NEGATIVE) Ur Phencyclidine Scrn (NEGATIVE) Ur Amphetamine Screen (NEGATIVE) U Methamphetamines Scrn (NEGATIVE) U Benzodiazepines Scrn (NEGATIVE) U Cocaine Metab Screen (NEGATIVE) U Marijuana (THC) Screen (NEGATIVE) Ketones MODERATE H (NEG) Influenza Type A RNA (NEGATIVE) Influenza Type B RNA (NEGATIVE) SARS-CoV-2 RNA (KALE) (NEGATIVE) 09/22/21 09/22/21 09/22/21 Range/Units 18:25 19:31 19:31 WBC (4.0-11.0) K/uL RBC (4.30-5.90) M/uL Hgb (12.0-16.0) g/dL Hct (36.0-46.0) % MCV (80.0-98.0) fL MCH (27.0-32.0) pg MCHC (31.0-37.0) g/dL RDW Std Deviation (28.0-62.0) fl RDW Coeff of Ga (11.0-15.0) % Plt Count (150-400) K/uL MPV (7.40-12.00) fL Neut % (Auto) (48.0-80.0) % Lymph % (Auto) (16.0-40.0) % [place] % (Auto) (0.0-15.0) % Eos % (Auto) (0.0-7.0) % Baso % (Auto) (0.0-1.5) % Neut # (Auto) (1.4-5.7) K/uL Lymph # (Auto) (0.6-2.4) K/uL [place] # (Auto) (0.0-0.8) K/uL Eos # (Auto) (0.0-0.7) K/uL Baso # (Auto) (0.0-0.1) K/uL Nucleated RBC % /100WBC Nucleated RBCs # K/uL INR APTT (18.6-31.3) SEC VBG pH 7.24 L (7.31-7.41) VBG pCO2 20 L (41-51) mmHG VBG pO2 48 mmHG VBG HCO3 8 L (23-28) mEq/L VBG Total CO2 8 L (24-29) mmol/L VBG Base Excess -16.9 L (-2.0-3.0) Sodium 134 L (136-145) mmol/L Potassium 3.9 (3.5-5.1) mmol/L Chloride 99 (98-107) mmol/L Carbon Dioxide 8.6 L (21.0-32.0) mmol/L BUN 2 L (7.0-18.0) mg/dL Creatinine 1.0 (0.6-1.0) mg/dL Est Cr Clr Drug Dosing 78.15 mL/min Estimated GFR (MDRD) > 60.0 ml/min Glucose 200 H (74-106) mg/dL Lactic Acid (0.4-2.0) mmol/L Calcium 8.3 L (8.5-10.1) mg/dL Magnesium (1.8-2.4) mg/dL Total Bilirubin 2.2 H (0.2-1.0) mg/dL AST 309 H (15-37) IU/L ALT 136 H (14-63) IU/L Alkaline Phosphatase 287 H (46-116) U/L Troponin I (0.000-0.056) ng/mL Total Protein 7.8 (6.4-8.2) g/dL Albumin 3.4 (3.4-5.0) g/dL Globulin 4.4 H (2.6-4.0) g/dL Albumin/Globulin Ratio 0.8 L (0.9-1.6) Lipase (73-393) U/L Urine Color Urine Appearance Urine pH (5.0-8.0) Ur Specific [place] (1.001-1.035) Urine Protein (NEGATIVE) mg/dL Urine Glucose (UA) (NEGATIVE) mg/dL Urine Ketones (NEGATIVE) mg/dL Urine Occult Blood (NEGATIVE) Urine Nitrite (NEGATIVE) Urine Bilirubin (NEGATIVE) Urine Urobilinogen (<2.0) EU/dL Ur Leukocyte Esterase (NEGATIVE) Urine RBC (0-2/HPF) Urine WBC (0-5/HPF) Ur Epithelial Cells (NONE-FEW) Urine Bacteria (NEGATIVE) Urine HCG, Qual (NEGATIVE) Urine Opiates Screen (NEGATIVE) Ur Oxycodone Screen (NEGATIVE) Urine Methadone Screen (NEGATIVE) Acetaminophen ug/mL Ur Barbiturates Screen (NEGATIVE) Ur Phencyclidine Scrn (NEGATIVE) Ur Amphetamine Screen (NEGATIVE) U Methamphetamines Scrn (NEGATIVE) U Benzodiazepines Scrn (NEGATIVE) U Cocaine Metab Screen (NEGATIVE) U Marijuana (THC) Screen (NEGATIVE) Ketones (NEG) Influenza Type A RNA NEGATIVE (NEGATIVE) Influenza Type B RNA NEGATIVE (NEGATIVE) SARS-CoV-2 RNA (KALE) NEGATIVE (NEGATIVE) 09/22/21 09/22/21 09/22/21 Range/Units 20:10 20:10 20:10 WBC (4.0-11.0) K/uL RBC (4.30-5.90) M/uL Hgb (12.0-16.0) g/dL Hct (36.0-46.0) % MCV (80.0-98.0) fL MCH (27.0-32.0) pg MCHC (31.0-37.0) g/dL RDW Std Deviation (28.0-62.0) fl RDW Coeff of Ga (11.0-15.0) % Plt Count (150-400) K/uL MPV (7.40-12.00) fL Neut % (Auto) (48.0-80.0) % Lymph % (Auto) (16.0-40.0) % [place] % (Auto) (0.0-15.0) % Eos % (Auto) (0.0-7.0) % Baso % (Auto) (0.0-1.5) % Neut # (Auto) (1.4-5.7) K/uL Lymph # (Auto) (0.6-2.4) K/uL [place] # (Auto) (0.0-0.8) K/uL Eos # (Auto) (0.0-0.7) K/uL Baso # (Auto) (0.0-0.1) K/uL Nucleated RBC % /100WBC Nucleated RBCs # K/uL INR APTT (18.6-31.3) SEC VBG pH (7.31-7.41) VBG pCO2 (41-51) mmHG VBG pO2 mmHG VBG HCO3 (23-28) mEq/L VBG Total CO2 (24-29) mmol/L VBG Base Excess (-2.0-3.0) Sodium (136-145) mmol/L Potassium (3.5-5.1) mmol/L Chloride (98-107) mmol/L Carbon Dioxide (21.0-32.0) mmol/L BUN (7.0-18.0) mg/dL Creatinine (0.6-1.0) mg/dL Est Cr Clr Drug Dosing mL/min Estimated GFR (MDRD) ml/min Glucose (74-106) mg/dL Lactic Acid (0.4-2.0) mmol/L Calcium (8.5-10.1) mg/dL Magnesium (1.8-2.4) mg/dL Total Bilirubin (0.2-1.0) mg/dL AST (15-37) IU/L ALT (14-63) IU/L Alkaline Phosphatase (46-116) U/L Troponin I (0.000-0.056) ng/mL Total Protein (6.4-8.2) g/dL Albumin (3.4-5.0) g/dL Globulin (2.6-4.0) g/dL Albumin/Globulin Ratio (0.9-1.6) Lipase (73-393) U/L Urine Color YELLOW Urine Appearance CLEAR Urine pH 6.0 (5.0-8.0) Ur Specific [place] >= 1.030 (1.001-1.035) Urine Protein TRACE H (NEGATIVE) mg/dL Urine Glucose (UA) NEGATIVE (NEGATIVE) mg/dL Urine Ketones >=80 (NEGATIVE) mg/dL Urine Occult Blood TRACE-INTACT H (NEGATIVE) Urine Nitrite NEGATIVE (NEGATIVE) Urine Bilirubin SMALL H (NEGATIVE) Urine Urobilinogen 0.2 (<2.0) EU/dL Ur Leukocyte Esterase NEGATIVE (NEGATIVE) Urine RBC 0-2 (0-2/HPF) Urine WBC 0-1 (0-5/HPF) Ur Epithelial Cells RARE (NONE-FEW) Urine Bacteria FEW (NEGATIVE) Urine HCG, Qual NEGATIVE (NEGATIVE) Urine Opiates Screen NEGATIVE (NEGATIVE) Ur Oxycodone Screen NEGATIVE (NEGATIVE) Urine Methadone Screen NEGATIVE (NEGATIVE) Acetaminophen ug/mL Ur Barbiturates Screen NEGATIVE (NEGATIVE) Ur Phencyclidine Scrn NEGATIVE (NEGATIVE) Ur Amphetamine Screen NEGATIVE (NEGATIVE) U Methamphetamines Scrn NEGATIVE (NEGATIVE) U Benzodiazepines Scrn NEGATIVE (NEGATIVE) U Cocaine Metab Screen NEGATIVE (NEGATIVE) U Marijuana (THC) Screen NEGATIVE (NEGATIVE) Ketones (NEG) Influenza Type A RNA (NEGATIVE) Influenza Type B RNA (NEGATIVE) SARS-CoV-2 RNA (KALE) (NEGATIVE) 09/22/21 Range/Units 20:27 WBC (4.0-11.0) K/uL RBC (4.30-5.90) M/uL Hgb (12.0-16.0) g/dL Hct (36.0-46.0) % MCV (80.0-98.0) fL MCH (27.0-32.0) pg MCHC (31.0-37.0) g/dL RDW Std Deviation (28.0-62.0) fl RDW Coeff of Ga (11.0-15.0) % Plt Count (150-400) K/uL MPV (7.40-12.00) fL Neut % (Auto) (48.0-80.0) % Lymph % (Auto) (16.0-40.0) % [place] % (Auto) (0.0-15.0) % Eos % (Auto) (0.0-7.0) % Baso % (Auto) (0.0-1.5) % Neut # (Auto) (1.4-5.7) K/uL Lymph # (Auto) (0.6-2.4) K/uL [place] # (Auto) (0.0-0.8) K/uL Eos # (Auto) (0.0-0.7) K/uL Baso # (Auto) (0.0-0.1) K/uL Nucleated RBC % /100WBC Nucleated RBCs # K/uL INR APTT (18.6-31.3) SEC VBG pH (7.31-7.41) VBG pCO2 (41-51) mmHG VBG pO2 mmHG VBG HCO3 (23-28) mEq/L VBG Total CO2 (24-29) mmol/L VBG Base Excess (-2.0-3.0) Sodium (136-145) mmol/L Potassium (3.5-5.1) mmol/L Chloride (98-107) mmol/L Carbon Dioxide (21.0-32.0) mmol/L BUN (7.0-18.0) mg/dL Creatinine (0.6-1.0) mg/dL Est Cr Clr Drug Dosing mL/min Estimated GFR (MDRD) ml/min Glucose (74-106) mg/dL Lactic Acid 0.9 (0.4-2.0) mmol/L Calcium (8.5-10.1) mg/dL Magnesium (1.8-2.4) mg/dL Total Bilirubin (0.2-1.0) mg/dL AST (15-37) IU/L ALT (14-63) IU/L Alkaline Phosphatase (46-116) U/L Troponin I (0.000-0.056) ng/mL Total Protein (6.4-8.2) g/dL Albumin (3.4-5.0) g/dL Globulin (2.6-4.0) g/dL Albumin/Globulin Ratio (0.9-1.6) Lipase (73-393) U/L Urine Color Urine Appearance Urine pH (5.0-8.0) Ur Specific [place] (1.001-1.035) Urine Protein (NEGATIVE) mg/dL Urine Glucose (UA) (NEGATIVE) mg/dL Urine Ketones (NEGATIVE) mg/dL Urine Occult Blood (NEGATIVE) Urine Nitrite (NEGATIVE) Urine Bilirubin (NEGATIVE) Urine Urobilinogen (<2.0) EU/dL Ur Leukocyte Esterase (NEGATIVE) Urine RBC (0-2/HPF) Urine WBC (0-5/HPF) Ur Epithelial Cells (NONE-FEW) Urine Bacteria (NEGATIVE) Urine HCG, Qual (NEGATIVE) Urine Opiates Screen (NEGATIVE) Ur Oxycodone Screen (NEGATIVE) Urine Methadone Screen (NEGATIVE) Acetaminophen ug/mL Ur Barbiturates Screen (NEGATIVE) Ur Phencyclidine Scrn (NEGATIVE) Ur Amphetamine Screen (NEGATIVE) U Methamphetamines Scrn (NEGATIVE) U Benzodiazepines Scrn (NEGATIVE) U Cocaine Metab Screen (NEGATIVE) U Marijuana (THC) Screen (NEGATIVE) Ketones (NEG) Influenza Type A RNA (NEGATIVE) Influenza Type B RNA (NEGATIVE) SARS-CoV-2 RNA (KALE) (NEGATIVE) Meds: Medications Generic Name Dose Route Start Last Admin Trade Name Freq PRN Reason Stop Dose Admin Dextrose/Lactated Ringer's 1,000 mls @ 999 mls/hr 09/22/21 17:45 09/22/21 19:20 Dextrose 5%-Lactated Ringers IV Infused ASDIRECTED DONTE Infusion Lactated Ringer's 1,000 mls @ 999 mls/hr 09/22/21 18:45 09/22/21 20:57 Ringers, Lactated IV 999 mls/hr ASDIRECTED DONTE Administration Dextrose/Lactated Ringer's 1,000 mls @ 999 mls/hr 09/22/21 18:45 09/22/21 20:31 Dextrose 5%-Lactated Ringers IV 999 mls/hr ASDIRECTED DONTE Administration Lactated Ringer's 1,000 mls @ 999 mls/hr 09/22/21 19:30 09/22/21 22:54 Ringers, Lactated IV 999 mls/hr .BOLUS DONTE Administration Discontinued Medications Generic Name Dose Route Start Last Admin Trade Name [place] PRN Reason Stop Dose Admin Diphenhydramine HCl 25 mg 09/22/21 17:40 09/22/21 18:13 Diphenhydramine 50 Mg/Ml Sdv IVPUSH 09/22/21 17:41 25 mg ONETIME ONE Administration Iopamidol 100 ml 09/22/21 20:15 09/22/21 20:19 Iopamidol 755 Mg/Ml 500 Ml Multipack Bottle IVPUSH 09/22/21 20:16 100 ml ONETIME ONE Administration Ketorolac Tromethamine 15 mg 09/22/21 17:40 09/22/21 18:16 Ketorolac 15 Mg/Ml Sdv IVPUSH 09/22/21 17:41 15 mg ONETIME ONE Administration Morphine Sulfate 2 mg 09/22/21 22:48 09/22/21 22:54 Morphine 2 Mg/Ml Syringe IVPUSH 09/22/21 22:49 2 mg ONETIME ONE Administration Ondansetron HCl 4 mg 09/22/21 17:41 09/22/21 18:16 Ondansetron 4 Mg/2 Ml Sdv IVPUSH 09/22/21 17:42 4 mg ONETIME ONE Administration Ondansetron HCl 4 mg 09/22/21 22:48 09/22/21 22:54 Ondansetron 4 Mg/2 Ml Sdv IVPUSH 09/22/21 22:49 4 mg ONETIME ONE Administration Prochlorperazine Edisylate 5 mg 09/22/21 17:40 09/22/21 18:15 Prochlorperazine 10 Mg/2 Ml Sdv IVPUSH 09/22/21 17:41 5 mg ONETIME ONE Administration Departure - Departure Time of Disposition: 23:02 Condition: Good Sepsis Event Note (ED) - Focused Exam Vital Signs: Vital Signs Temp Pulse Resp BP Pulse Ox 09/22/21 22:20 62 18 116/69 96 09/22/21 21:19 148/90 H 09/22/21 20:58 96.8 F L 78 18 149/80 H 96 09/22/21 19:18 122/67 09/22/21 18:23 84 16 127/73 100 09/22/21 17:00 96.6 F L 107 H 20 135/99 H 98 - My Orders Last 24 Hours: My Active Orders 09/22/21 18:05 OSMOLALITY - SERUM [REF] Stat 09/22/21 19:30 Lactated Ringers [Ringers, Lactated] 1,000 ml IV .BOLUS 09/22/21 19:54 EKG Documentation Completion [RC] AM 09/22/21 19:56 Blood Culture x2 Reflex Set [OM.PC] Stat 09/22/21 20:07 ABG [BLOOD GAS ARTERIAL] [BG] Stat 09/22/21 20:08 EKG Documentation Completion [RC] AM 09/22/21 20:27 CULTURE BLOOD [BC] Stat 09/22/21 20:33 CULTURE BLOOD [BC] Stat 09/22/21 23:01 Patient Status [ADT] Routine - Assessment/Plan Last 24 Hours: My Active Orders 09/22/21 18:05 OSMOLALITY - SERUM [REF] Stat 09/22/21 19:30 Lactated Ringers [Ringers, Lactated] 1,000 ml IV .BOLUS 09/22/21 19:54 EKG Documentation Completion [RC] AM 09/22/21 19:56 Blood Culture x2 Reflex Set [OM.PC] Stat 09/22/21 20:07 ABG [BLOOD GAS ARTERIAL] [BG] Stat 09/22/21 20:08 EKG Documentation Completion [RC] AM 09/22/21 20:27 CULTURE BLOOD [BC] Stat 09/22/21 20:33 CULTURE BLOOD [BC] Stat 09/22/21 23:01 Patient Status [ADT] Routine
[2021-09-22] MEDS: Dextrose 5%-Lactated Ringers 1,000 ML IV SCH ×2 (18:19→20:25)
[2021-09-22 18:40] LABS: BLOOD UREA NITROGEN,BUN 3 mg/dL (7.0-18.0); CARBON DIOXIDE,CO2 9.6 mmol/L (21.0-32.0); CHLORIDE,CL 98 mmol/L (98-107); GLUCOSE RANDOM 74 mg/dL (74-106); POTASSIUM,K 3.6 mmol/L (3.5-5.1); SODIUM,NA 135 mmol/L (136-145)
[2021-09-22] MEDS ORDERED: Dextrose 5%-Lactated Ringers 1,000 ML IV SCH (18:45)
[2021-09-22] MEDS ORDERED: Lactated Ringers 1,000 ML IV SCH ×2 (18:45→19:30)
--- NOTE | 2021-09-22 18:49 | CR ---
Indication: Chest pain. Technique: AP portable view of the chest. Comparison: August 02, 2021. Findings: The heart is normal in size. The lungs are clear. No infiltrate, pleural effusion, or pneumothorax is identified. Impression: No acute cardiopulmonary process Dictated by Tarah Rodriguez MD @ 09/22/2021 6:47:45 PM (Electronically Signed)
[2021-09-22 19:14] LABS: CORONAVIRUS COVID-19 NAA NEGATIVE (NEGATIVE); INFLUENZA A NAA NEGATIVE (NEGATIVE); INFLUENZA B NAA NEGATIVE (NEGATIVE)
[2021-09-22 20:01] LABS: BLOOD UREA NITROGEN,BUN 2 mg/dL (7.0-18.0); CARBON DIOXIDE,CO2 8.6 mmol/L (21.0-32.0); CHLORIDE,CL 99 mmol/L (98-107); GLUCOSE RANDOM 200 mg/dL (74-106); POTASSIUM,K 3.9 mmol/L (3.5-5.1); SODIUM,NA 134 mmol/L (136-145)
[2021-09-22] MEDS ORDERED: Iopamidol 755 MG/ML 500 ML Multipack Bottle IVPUSH ONE (20:15)
[2021-09-22] MEDS ORDERED: Morphine 2 MG/ML SYRINGE IVPUSH ONE (22:48)
--- NOTE | 2021-09-22 22:55 | CT ---
Indication: Metabolic acidosis. Technique: Multiple contiguous axial images were obtained from the lung bases through the symphysis pubis after the intravenous administration of 100 cc Isovue 370. Please note that all CT scans at this facility use dose modulation, iterative reconstruction, and/or weight-based dosing when appropriate to reduce radiation dose to as low as reasonably achievable. Comparison: August 02, 2021. Findings: The heart is normal in size. No pericardial effusions identified. The lung bases are clear. Postoperative changes stomach identified. Significant fatty infiltration of the liver is identified. The pancreas, spleen, adrenals, kidneys are. No hydronephrosis is identified. The liver measures 21 centimeters in maximum dimension. In the pelvis, the urinary bladder is normal. The uterus is grossly normal. Wall of the urinary bladder is thickened, which may be due to lack of complete distention versus cystitis. Both ovaries are grossly normal. The colon is collapsed. Small and large bowel are normal in caliber. No free fluid or free air is identified within the abdomen or pelvis. The aorta is normal in caliber. Degenerative changes of the spine are identified. No lytic or blastic lesions are identified. Impression: Thickening of the wall of the urinary bladder, cystitis versus lack of distention. Diffuse fatty infiltration of the liver. Hepatomegaly Nondistention of the colon. Please note that all CT scans at this facility use dose modulation, iterative reconstruction, and/or weight-based dosing when appropriate to reduce radiation dose to as low as reasonably achievable. Dictated by Tarah Rodriguez MD @ 09/22/2021 10:53:13 PM (Electronically Signed)
[2021-09-23] MEDS ORDERED: Acetaminophen 325 MG Tab PO PRN (04:49)
[2021-09-23] MEDS: Ondansetron 4 MG/2 ML SDV IVPUSH PRN ×3 (05:00→17:54)
[2021-09-23] MEDS ORDERED: Promethazine 25 MG/ML SDV IM PRN (06:33)
--- NOTE | 2021-09-23 06:45 | PCM.HP.2 ---
H&P History of Present Illness - General Date of Service: 09/23/21 Admit Problem/Dx: Admission Diagnosis/Problem Admission Diagnosis/Problem Acidosis - History of Present Illness Initial Comments - Free Text/Narative: 40 yo female with pmh of gastric bypass and jaundice who presents with headache, nausea and vomiting. Patient has been struggling with nausea and vomiting for over a month. She has had severe nausea over the past four days and has not eating anything. Her headache started yesterday. She denies any Tylenol, ASA, or alcohol use. Patient denies any history of diabetes but does report being placed on metformin after her gastric bypass for blood glucose control even though she had issues with low blood glucose. She was admitted here on 08/02/21 with nausea, headache and noted to have a bilirubin of 10. Her work up consistent of an MRCP that reported fatty liver disease and no biliary patho logy, HIDA scan mildly low gallbladder ejection fraction. She was referred to GI and they performed liver biopsy which show fattly liver disease. She also had an EGD, and colonoscopy. Headache Pain Score (Numeric/FACES): 10 - Related Data Allergies/Adverse Reactions: Allergies Allergy/AdvReac Type Severity Reaction Status Date / Time cephalexin [From Keflex] Allergy Rash Verified 09/22/21 17:03 Sulfa (Sulfonamide Allergy Rash Verified 09/22/21 17:03 Antibiotics) Home Medications: Home Meds Folic Acid 1 mg PO DAILY #30 tab 08/06/21 [Rx] Multivitamins with Iron [Vitalets] 1 each PO DAILY #30 tab.chew 08/06/21 [Rx] ondansetron HCL [Zofran] 4 mg PO DAILY #30 tablet 08/07/21 [Rx] Famotidine 40 mg PO 09/22/21 [History] Omeprazole 20 mg PO 09/22/21 [History] hydrOXYzine HCL [Hydroxyzine HCl] 25 mg PO 09/22/21 [History] Past Medical History - Past Health History Medical/Surgical History: Denies Medical/Surgical History HEENT History: Reports: None Cardiovascular History: Reports: None Respiratory History: Reports: None Gastrointestinal History: Reports: GERD, Jaundice Genitourinary History: Reports: None [employer] History: Reports: , Spontaneous Musculoskeletal History: Reports: None Neurological History: Reports: None, Other (See Below) Other Neuro History: was in a drug induced coma for a week to correct electrolyte imbalance from water intoxication Psychiatric History: Reports: Depression Endocrine/Metabolic History: Reports: Obesity/BMI 30+ Hematologic History: Reports: None Immunologic History: Reports: None Oncologic (Cancer) History: Reports: None Dermatologic History: Reports: None - Infectious Disease History Infectious Disease History: Reports: None - Past Surgical History Head Surgeries/Procedures: Reports: None HEENT Surgical History: Reports: None Cardiovascular Surgical History: Reports: None Respiratory Surgical History: Reports: None GI Surgical History: Reports: Bariatric Procedure Female Surgical History: Reports: None Endocrine Surgical History: Reports: None Musculoskeletal Surgical History: Reports: Other (See Below) Other Musculoskeletal Surgeries/Procedures:: ACL Repair right knee (has screw) plus arthroscopy to repair meniscus tear Oncologic Surgical History: Reports: None Dermatological Surgical History: Reports: None Social & Family History - Family History Family Medical History: No Pertinent Family History - Tobacco Use Tobacco Use Status *Q: Former Tobacco User Used Tobacco, but Quit: No Second Hand Smoke Exposure: No - Caffeine Use Caffeine Use: Reports: Soda - Alcohol Use Days Per Week of Alcohol Use: 1 Number of Drinks Per Day: 0 Total Drinks Per Week: 0 - Recreational Drug Use Recreational Drug Use: No H&P Review of Systems - Review of Systems: Review Of Systems: Comprehensive ROS is negative, except as noted in HPI. Exam - Exam Exam: See Below - Vital Signs Vital Signs: Last Vital Signs Temp 36.7 C 09/23/21 05:00 Pulse 67 09/23/21 05:00 Resp 16 09/23/21 05:00 BP 120/70 09/23/21 05:00 Pulse Ox 96 09/23/21 05:00 Weight: 81.647 kg - Exam General: Alert, Oriented HEENT: Mucosa Moist & [place] Lungs: Clear to Auscultation, Normal Respiratory Effort Cardiovascular: Regular Rate, Regular Rhythm GI/Abdominal Exam: Normal Bowel Sounds, Soft, Non-Tender Extremities: Non-Tender, No Pedal Edema Skin: Warm, Dry, Intact Neurological: No: Focal Deficit - Patient Data Lab Results Last 24 hrs: Laboratory Results - last 24 hr 09/22/21 09/22/21 09/22/21 Range/Units 18:05 18:05 18:05 WBC 3.33 L (4.0-11.0) K/uL RBC 3.85 L (4.30-5.90) M/uL Hgb 11.7 L (12.0-16.0) g/dL Hct 37.5 (36.0-46.0) % MCV 97.4 (80.0-98.0) fL MCH 30.4 (27.0-32.0) pg MCHC 31.2 (31.0-37.0) g/dL RDW Std Deviation 56.0 (28.0-62.0) fl RDW Coeff of Ga 16 H (11.0-15.0) % Plt Count 263 (150-400) K/uL MPV 10.00 (7.40-12.00) fL Neut % (Auto) 44.8 L (48.0-80.0) % Lymph % (Auto) 38.7 (16.0-40.0) % Irion % (Auto) 12.6 (0.0-15.0) % Eos % (Auto) 2.1 (0.0-7.0) % Baso % (Auto) 1.8 H (0.0-1.5) % Neut # (Auto) 1.5 (1.4-5.7) K/uL Lymph # (Auto) 1.3 (0.6-2.4) K/uL Irion # (Auto) 0.4 (0.0-0.8) K/uL Eos # (Auto) 0.1 (0.0-0.7) K/uL Baso # (Auto) 0.1 (0.0-0.1) K/uL Nucleated RBC % 0.0 /100WBC Nucleated RBCs # 0 K/uL INR APTT (18.6-31.3) SEC VBG pH (7.31-7.41) VBG pCO2 (41-51) mmHG VBG pO2 mmHG VBG HCO3 (23-28) mEq/L VBG Total CO2 (24-29) mmol/L VBG Base Excess (-2.0-3.0) Sodium 135 L (136-145) mmol/L Potassium 3.6 (3.5-5.1) mmol/L Chloride 98 (98-107) mmol/L Carbon Dioxide 9.6 L (21.0-32.0) mmol/L BUN 3 L (7.0-18.0) mg/dL Creatinine 0.9 (0.6-1.0) mg/dL Est Cr Clr Drug Dosing 86.84 mL/min Estimated GFR (MDRD) > 60.0 ml/min Glucose 74 (74-106) mg/dL Lactic Acid (0.4-2.0) mmol/L Calcium 8.3 L (8.5-10.1) mg/dL Magnesium 1.9 (1.8-2.4) mg/dL Total Bilirubin (0.2-1.0) mg/dL AST (15-37) IU/L ALT (14-63) IU/L Alkaline Phosphatase (46-116) U/L Troponin I < 0.050 (0.000-0.056) ng/mL Total Protein (6.4-8.2) g/dL Albumin (3.4-5.0) g/dL Globulin (2.6-4.0) g/dL Albumin/Globulin Ratio (0.9-1.6) Lipase 159 (73-393) U/L Urine Color Urine Appearance Urine pH (5.0-8.0) Ur Specific Weld (1.001-1.035) Urine Protein (NEGATIVE) mg/dL Urine Glucose (UA) (NEGATIVE) mg/dL Urine Ketones (NEGATIVE) mg/dL Urine Occult Blood (NEGATIVE) Urine Nitrite (NEGATIVE) Urine Bilirubin (NEGATIVE) Urine Urobilinogen (<2.0) EU/dL Ur Leukocyte Esterase (NEGATIVE) Urine RBC (0-2/HPF) Urine WBC (0-5/HPF) Ur Epithelial Cells (NONE-FEW) Urine Bacteria (NEGATIVE) Urine HCG, Qual (NEGATIVE) Urine Opiates Screen (NEGATIVE) Ur Oxycodone Screen (NEGATIVE) Urine Methadone Screen (NEGATIVE) Acetaminophen ug/mL Ur Barbiturates Screen (NEGATIVE) Ur Phencyclidine Scrn (NEGATIVE) Ur Amphetamine Screen (NEGATIVE) U Methamphetamines Scrn (NEGATIVE) U Benzodiazepines Scrn (NEGATIVE) U Cocaine Metab Screen (NEGATIVE) U Marijuana (THC) Screen (NEGATIVE) Ketones (NEG) Influenza Type A RNA (NEGATIVE) Influenza Type B RNA (NEGATIVE) SARS-CoV-2 RNA (KALE) (NEGATIVE) 09/22/21 09/22/21 09/22/21 Range/Units 18:05 18:05 18:05 WBC (4.0-11.0) K/uL RBC (4.30-5.90) M/uL Hgb (12.0-16.0) g/dL Hct (36.0-46.0) % MCV (80.0-98.0) fL MCH (27.0-32.0) pg MCHC (31.0-37.0) g/dL RDW Std Deviation (28.0-62.0) fl RDW Coeff of Ga (11.0-15.0) % Plt Count (150-400) K/uL MPV (7.40-12.00) fL Neut % (Auto) (48.0-80.0) % Lymph % (Auto) (16.0-40.0) % Irion % (Auto) (0.0-15.0) % Eos % (Auto) (0.0-7.0) % Baso % (Auto) (0.0-1.5) % Neut # (Auto) (1.4-5.7) K/uL Lymph # (Auto) (0.6-2.4) K/uL Irion # (Auto) (0.0-0.8) K/uL Eos # (Auto) (0.0-0.7) K/uL Baso # (Auto) (0.0-0.1) K/uL Nucleated RBC % /100WBC Nucleated RBCs # K/uL INR 1.13 APTT 26.1 (18.6-31.3) SEC VBG pH (7.31-7.41) VBG pCO2 (41-51) mmHG VBG pO2 mmHG VBG HCO3 (23-28) mEq/L VBG Total CO2 (24-29) mmol/L VBG Base Excess (-2.0-3.0) Sodium (136-145) mmol/L Potassium (3.5-5.1) mmol/L Chloride (98-107) mmol/L Carbon Dioxide (21.0-32.0) mmol/L BUN (7.0-18.0) mg/dL Creatinine (0.6-1.0) mg/dL Est Cr Clr Drug Dosing mL/min Estimated GFR (MDRD) ml/min Glucose (74-106) mg/dL Lactic Acid (0.4-2.0) mmol/L Calcium (8.5-10.1) mg/dL Magnesium (1.8-2.4) mg/dL Total Bilirubin (0.2-1.0) mg/dL AST (15-37) IU/L ALT (14-63) IU/L Alkaline Phosphatase (46-116) U/L Troponin I (0.000-0.056) ng/mL Total Protein (6.4-8.2) g/dL Albumin (3.4-5.0) g/dL Globulin (2.6-4.0) g/dL Albumin/Globulin Ratio (0.9-1.6) Lipase (73-393) U/L Urine Color Urine Appearance Urine pH (5.0-8.0) Ur Specific Weld (1.001-1.035) Urine Protein (NEGATIVE) mg/dL Urine Glucose (UA) (NEGATIVE) mg/dL Urine Ketones (NEGATIVE) mg/dL Urine Occult Blood (NEGATIVE) Urine Nitrite (NEGATIVE) Urine Bilirubin (NEGATIVE) Urine Urobilinogen (<2.0) EU/dL Ur Leukocyte Esterase (NEGATIVE) Urine RBC (0-2/HPF) Urine WBC (0-5/HPF) Ur Epithelial Cells (NONE-FEW) Urine Bacteria (NEGATIVE) Urine HCG, Qual (NEGATIVE) Urine Opiates Screen (NEGATIVE) Ur Oxycodone Screen (NEGATIVE) Urine Methadone Screen (NEGATIVE) Acetaminophen <2.0 ug/mL Ur Barbiturates Screen (NEGATIVE) Ur Phencyclidine Scrn (NEGATIVE) Ur Amphetamine Screen (NEGATIVE) U Methamphetamines Scrn (NEGATIVE) U Benzodiazepines Scrn (NEGATIVE) U Cocaine Metab Screen (NEGATIVE) U Marijuana (THC) Screen (NEGATIVE) Ketones MODERATE H (NEG) Influenza Type A RNA (NEGATIVE) Influenza Type B RNA (NEGATIVE) SARS-CoV-2 RNA (KALE) (NEGATIVE) 09/22/21 09/22/21 09/22/21 Range/Units 18:25 19:31 19:31 WBC (4.0-11.0) K/uL RBC (4.30-5.90) M/uL Hgb (12.0-16.0) g/dL Hct (36.0-46.0) % MCV (80.0-98.0) fL MCH (27.0-32.0) pg MCHC (31.0-37.0) g/dL RDW Std Deviation (28.0-62.0) fl RDW Coeff of Ga (11.0-15.0) % Plt Count (150-400) K/uL MPV (7.40-12.00) fL Neut % (Auto) (48.0-80.0) % Lymph % (Auto) (16.0-40.0) % [place]ion % (Auto) (0.0-15.0) % Eos % (Auto) (0.0-7.0) % Baso % (Auto) (0.0-1.5) % Neut # (Auto) (1.4-5.7) K/uL Lymph # (Auto) (0.6-2.4) K/uL Irion # (Auto) (0.0-0.8) K/uL Eos # (Auto) (0.0-0.7) K/uL Baso # (Auto) (0.0-0.1) K/uL Nucleated RBC % /100WBC Nucleated RBCs # K/uL INR APTT (18.6-31.3) SEC VBG pH 7.24 L (7.31-7.41) VBG pCO2 20 L (41-51) mmHG VBG pO2 48 mmHG VBG HCO3 8 L (23-28) mEq/L VBG Total CO2 8 L (24-29) mmol/L VBG Base Excess -16.9 L (-2.0-3.0) Sodium 134 L (136-145) mmol/L Potassium 3.9 (3.5-5.1) mmol/L Chloride 99 (98-107) mmol/L Carbon Dioxide 8.6 L (21.0-32.0) mmol/L BUN 2 L (7.0-18.0) mg/dL Creatinine 1.0 (0.6-1.0) mg/dL Est Cr Clr Drug Dosing 78.15 mL/min Estimated GFR (MDRD) > 60.0 ml/min Glucose 200 H (74-106) mg/dL Lactic Acid (0.4-2.0) mmol/L Calcium 8.3 L (8.5-10.1) mg/dL Magnesium (1.8-2.4) mg/dL Total Bilirubin 2.2 H (0.2-1.0) mg/dL AST 309 H (15-37) IU/L ALT 136 H (14-63) IU/L Alkaline Phosphatase 287 H (46-116) U/L Troponin I (0.000-0.056) ng/mL Total Protein 7.8 (6.4-8.2) g/dL Albumin 3.4 (3.4-5.0) g/dL Globulin 4.4 H (2.6-4.0) g/dL Albumin/Globulin Ratio 0.8 L (0.9-1.6) Lipase (73-393) U/L Urine Color Urine Appearance Urine pH (5.0-8.0) Ur Specific Weld (1.001-1.035) Urine Protein (NEGATIVE) mg/dL Urine Glucose (UA) (NEGATIVE) mg/dL Urine Ketones (NEGATIVE) mg/dL Urine Occult Blood (NEGATIVE) Urine Nitrite (NEGATIVE) Urine Bilirubin (NEGATIVE) Urine Urobilinogen (<2.0) EU/dL Ur Leukocyte Esterase (NEGATIVE) Urine RBC (0-2/HPF) Urine WBC (0-5/HPF) Ur Epithelial Cells (NONE-FEW) Urine Bacteria (NEGATIVE) Urine HCG, Qual (NEGATIVE) Urine Opiates Screen (NEGATIVE) Ur Oxycodone Screen (NEGATIVE) Urine Methadone Screen (NEGATIVE) Acetaminophen ug/mL Ur Barbiturates Screen (NEGATIVE) Ur Phencyclidine Scrn (NEGATIVE) Ur Amphetamine Screen (NEGATIVE) U Methamphetamines Scrn (NEGATIVE) U Benzodiazepines Scrn (NEGATIVE) U Cocaine Metab Screen (NEGATIVE) U Marijuana (THC) Screen (NEGATIVE) Ketones (NEG) Influenza Type A RNA NEGATIVE (NEGATIVE) Influenza Type B RNA NEGATIVE (NEGATIVE) SARS-CoV-2 RNA (KALE) NEGATIVE (NEGATIVE) 09/22/21 09/22/21 09/22/21 Range/Units 20:10 20:10 20:10 WBC (4.0-11.0) K/uL RBC (4.30-5.90) M/uL Hgb (12.0-16.0) g/dL Hct (36.0-46.0) % MCV (80.0-98.0) fL MCH (27.0-32.0) pg MCHC (31.0-37.0) g/dL RDW Std Deviation (28.0-62.0) fl RDW Coeff of Ga (11.0-15.0) % Plt Count (150-400) K/uL MPV (7.40-12.00) fL Neut % (Auto) (48.0-80.0) % Lymph % (Auto) (16.0-40.0) % [place] % (Auto) (0.0-15.0) % Eos % (Auto) (0.0-7.0) % Baso % (Auto) (0.0-1.5) % Neut # (Auto) (1.4-5.7) K/uL Lymph # (Auto) (0.6-2.4) K/uL [place]ion # (Auto) (0.0-0.8) K/uL Eos # (Auto) (0.0-0.7) K/uL Baso # (Auto) (0.0-0.1) K/uL Nucleated RBC % /100WBC Nucleated RBCs # K/uL INR APTT (18.6-31.3) SEC VBG pH (7.31-7.41) VBG pCO2 (41-51) mmHG VBG pO2 mmHG VBG HCO3 (23-28) mEq/L VBG Total CO2 (24-29) mmol/L VBG Base Excess (-2.0-3.0) Sodium (136-145) mmol/L Potassium (3.5-5.1) mmol/L Chloride (98-107) mmol/L Carbon Dioxide (21.0-32.0) mmol/L BUN (7.0-18.0) mg/dL Creatinine (0.6-1.0) mg/dL Est Cr Clr Drug Dosing mL/min Estimated GFR (MDRD) ml/min Glucose (74-106) mg/dL Lactic Acid (0.4-2.0) mmol/L Calcium (8.5-10.1) mg/dL Magnesium (1.8-2.4) mg/dL Total Bilirubin (0.2-1.0) mg/dL AST (15-37) IU/L ALT (14-63) IU/L Alkaline Phosphatase (46-116) U/L Troponin I (0.000-0.056) ng/mL Total Protein (6.4-8.2) g/dL Albumin (3.4-5.0) g/dL Globulin (2.6-4.0) g/dL Albumin/Globulin Ratio (0.9-1.6) Lipase (73-393) U/L Urine Color YELLOW Urine Appearance CLEAR Urine pH 6.0 (5.0-8.0) Ur Specific Weld >= 1.030 (1.001-1.035) Urine Protein TRACE H (NEGATIVE) mg/dL Urine Glucose (UA) NEGATIVE (NEGATIVE) mg/dL Urine Ketones >=80 (NEGATIVE) mg/dL Urine Occult Blood TRACE-INTACT H (NEGATIVE) Urine Nitrite NEGATIVE (NEGATIVE) Urine Bilirubin SMALL H (NEGATIVE) Urine Urobilinogen 0.2 (<2.0) EU/dL Ur Leukocyte Esterase NEGATIVE (NEGATIVE) Urine RBC 0-2 (0-2/HPF) Urine WBC 0-1 (0-5/HPF) Ur Epithelial Cells RARE (NONE-FEW) Urine Bacteria FEW (NEGATIVE) Urine HCG, Qual NEGATIVE (NEGATIVE) Urine Opiates Screen NEGATIVE (NEGATIVE) Ur Oxycodone Screen NEGATIVE (NEGATIVE) Urine Methadone Screen NEGATIVE (NEGATIVE) Acetaminophen ug/mL Ur Barbiturates Screen NEGATIVE (NEGATIVE) Ur Phencyclidine Scrn NEGATIVE (NEGATIVE) Ur Amphetamine Screen NEGATIVE (NEGATIVE) U Methamphetamines Scrn NEGATIVE (NEGATIVE) U Benzodiazepines Scrn NEGATIVE (NEGATIVE) U Cocaine Metab Screen NEGATIVE (NEGATIVE) U Marijuana (THC) Screen NEGATIVE (NEGATIVE) Ketones (NEG) Influenza Type A RNA (NEGATIVE) Influenza Type B RNA (NEGATIVE) SARS-CoV-2 RNA (KALE) (NEGATIVE) 09/22/21 Range/Units 20:27 WBC (4.0-11.0) K/uL RBC (4.30-5.90) M/uL Hgb (12.0-16.0) g/dL Hct (36.0-46.0) % MCV (80.0-98.0) fL MCH (27.0-32.0) pg MCHC (31.0-37.0) g/dL RDW Std Deviation (28.0-62.0) fl RDW Coeff of Ga (11.0-15.0) % Plt Count (150-400) K/uL MPV (7.40-12.00) fL Neut % (Auto) (48.0-80.0) % Lymph % (Auto) (16.0-40.0) % [place]ion % (Auto) (0.0-15.0) % Eos % (Auto) (0.0-7.0) % Baso % (Auto) (0.0-1.5) % Neut # (Auto) (1.4-5.7) K/uL Lymph # (Auto) (0.6-2.4) K/uL Irion # (Auto) (0.0-0.8) K/uL Eos # (Auto) (0.0-0.7) K/uL Baso # (Auto) (0.0-0.1) K/uL Nucleated RBC % /100WBC Nucleated RBCs # K/uL INR APTT (18.6-31.3) SEC VBG pH (7.31-7.41) VBG pCO2 (41-51) mmHG VBG pO2 mmHG VBG HCO3 (23-28) mEq/L VBG Total CO2 (24-29) mmol/L VBG Base Excess (-2.0-3.0) Sodium (136-145) mmol/L Potassium (3.5-5.1) mmol/L Chloride (98-107) mmol/L Carbon Dioxide (21.0-32.0) mmol/L BUN (7.0-18.0) mg/dL Creatinine (0.6-1.0) mg/dL Est Cr Clr Drug Dosing mL/min Estimated GFR (MDRD) ml/min Glucose (74-106) mg/dL Lactic Acid 0.9 (0.4-2.0) mmol/L Calcium (8.5-10.1) mg/dL Magnesium (1.8-2.4) mg/dL Total Bilirubin (0.2-1.0) mg/dL AST (15-37) IU/L ALT (14-63) IU/L Alkaline Phosphatase (46-116) U/L Troponin I (0.000-0.056) ng/mL Total Protein (6.4-8.2) g/dL Albumin (3.4-5.0) g/dL Globulin (2.6-4.0) g/dL Albumin/Globulin Ratio (0.9-1.6) Lipase (73-393) U/L Urine Color Urine Appearance Urine pH (5.0-8.0) Ur Specific Weld (1.001-1.035) Urine Protein (NEGATIVE) mg/dL Urine Glucose (UA) (NEGATIVE) mg/dL Urine Ketones (NEGATIVE) mg/dL Urine Occult Blood (NEGATIVE) Urine Nitrite (NEGATIVE) Urine Bilirubin (NEGATIVE) Urine Urobilinogen (<2.0) EU/dL Ur Leukocyte Esterase (NEGATIVE) Urine RBC (0-2/HPF) Urine WBC (0-5/HPF) Ur Epithelial Cells (NONE-FEW) Urine Bacteria (NEGATIVE) Urine HCG, Qual (NEGATIVE) Urine Opiates Screen (NEGATIVE) Ur Oxycodone Screen (NEGATIVE) Urine Methadone Screen (NEGATIVE) Acetaminophen ug/mL Ur Barbiturates Screen (NEGATIVE) Ur Phencyclidine Scrn (NEGATIVE) Ur Amphetamine Screen (NEGATIVE) U Methamphetamines Scrn (NEGATIVE) U Benzodiazepines Scrn (NEGATIVE) U Cocaine Metab Screen (NEGATIVE) U Marijuana (THC) Screen (NEGATIVE) Ketones (NEG) Influenza Type A RNA (NEGATIVE) Influenza Type B RNA (NEGATIVE) SARS-CoV-2 RNA (KALE) (NEGATIVE) Result Diagrams: 09/22/21 18:05 09/22/21 19:31 Sepsis Event Note - Evaluation Sepsis Screening Result: Possible Sepsis Risk - Focused Exam Vital Signs: Vital Signs Temp Pulse Resp BP Pulse Ox 09/23/21 05:00 36.7 C 67 16 120/70 96 09/23/21 01:30 36.9 C 69 16 135/83 96 09/22/21 23:50 68 18 118/64 96 09/22/21 22:20 62 18 116/69 96 09/22/21 21:19 148/90 H 09/22/21 20:58 36 C L 78 18 149/80 H 96 09/22/21 19:18 122/67 - Problem List (1) Starvation ketoacidosis SNOMED Code(s): 79325105 ICD Code: E87.2 - ACIDOSIS Status: Acute Current Visit: Yes (2) Dehydration SNOMED Code(s): 06656298 ICD Code: E86.0 - DEHYDRATION Status: Acute Current Visit: Yes (3) High anion gap metabolic acidosis SNOMED Code(s): 04021605 ICD Code: E87.2 - ACIDOSIS Status: Acute Current Visit: Yes (4) Elevated bilirubin SNOMED Code(s): 69440203 ICD Code: R17 - UNSPECIFIED JAUNDICE Status: Acute Current Visit: No Problem List Initiated/Reviewed/Updated: Yes Orders Last 24hrs: Active Orders 24 hr Category Date Time Status Patient Status [ADT] Routine ADT 09/22/21 23:01 Active Antiembolic Devices [RC] PER UNIT ROUTINE Care 09/23/21 06:35 Ordered Blood Glucose Check, Bedside [RC] TIDMEALS Care 09/23/21 06:33 Ordered EKG Documentation Completion [RC] AM Care 09/22/21 19:54 Active EKG Documentation Completion [RC] AM Care 09/22/21 20:08 Active Oxygen Therapy [RC] PRN Care 09/23/21 06:33 Ordered Telemetry Monitoring [Cardiac Monitoring] [RC] . Care 09/23/21 01:46 Active DIRECTED Telemetry Monitoring [Cardiac Monitoring] [RC] Q8H Care 09/23/21 00:53 Active Up ad Raven [RC] ASDIRECTED Care 09/23/21 06:33 Ordered VTE/DVT Education [RC] PER UNIT ROUTINE Care 09/23/21 06:33 Ordered Vaccine to be Administered/Admin Charge [RC] ASDIRECTED Care 09/23/21 01:58 Active Vital Signs [RC] Q4H Care 09/23/21 06:33 Ordered Regular Diet [DIET] Diet 09/23/21 Breakfast Active ABG [BLOOD GAS ARTERIAL] [BG] Stat Lab 09/22/21 20:07 Ordered BMP [BASIC METABOLIC PANEL,BMP] [CHEM] Routine Lab 09/23/21 04:49 Ordered CBC WITH AUTO DIFF [HEME] AM Lab 09/24/21 05:11 Ordered CBC WITH AUTO DIFF [HEME] AM Lab 09/25/21 05:11 Ordered CBC WITH AUTO DIFF [HEME] AM Lab 09/26/21 05:11 Ordered COMPREHENSIVE METABOLIC PN,CMP [CHEM] AM Lab 09/24/21 05:11 Ordered COMPREHENSIVE METABOLIC PN,CMP [CHEM] AM Lab 09/25/21 05:11 Ordered COMPREHENSIVE METABOLIC PN,CMP [CHEM] AM Lab 09/26/21 05:11 Ordered CULTURE BLOOD [BC] Stat Lab 09/22/21 20:27 Received CULTURE BLOOD [BC] Stat Lab 09/22/21 20:33 Received ETHANOL BLOOD MEDICAL [CHEM] Routine Lab 09/23/21 04:51 Ordered GLYCOSYLATED HEMOGLOBIN,HGBA1C [CHEM] Routine Lab 09/23/21 04:48 Ordered OSMOLALITY - SERUM [REF] Routine Lab 09/23/21 04:50 Ordered OSMOLALITY - SERUM [REF] Stat Lab 09/22/21 18:05 Received OSMOLALITY - URINE Routine Lab 09/23/21 04:50 Ordered SALICYLATE [CHEM] Routine Lab 09/23/21 04:48 Ordered Serum Ketones [B-HYDROXYBUTYRATE] [REF] Routine Lab 09/23/21 06:35 Ordered Dextrose 5%-0.9% NaCl [Dextrose 5%-Normal Saline] 1,000 Med 09/23/21 05:15 Active ml IV ASDIRECTED Dextrose 5%-Lactated Ringers 1,000 ml Med 09/22/21 17:45 Active IV ASDIRECTED Dextrose 5%-Lactated Ringers 1,000 ml Med 09/22/21 18:45 Active IV ASDIRECTED Enoxaparin [Lovenox] Med 09/23/21 06:45 Ordered 40 mg SUBCUT Q24H FLU Vacc [id number](6MOS UP)/PF [Fluzone Quad [id number] Med 09/23/21 09:00 Once Syringe] 60 mcg IM .ONCE ONE Lactated Ringers [Ringers, Lactated] 1,000 ml Med 09/22/21 19:30 Active IV .BOLUS Lactated Ringers [Ringers, Lactated] 1,000 ml Med 09/22/21 18:45 Active IV ASDIRECTED Morphine Med 09/23/21 06:32 Ordered 2 mg IVPUSH Q4H PRN Ondansetron [Zofran] Med 09/23/21 01:44 Active 4 mg IVPUSH Q4H PRN Pantoprazole [ProTONIX] Med 09/23/21 06:45 Ordered 40 mg IVPUSH Q24H Promethazine [Phenergan] Med 09/23/21 06:33 Ordered 25 mg IM Q6H PRN Blood Culture x2 Reflex Set [OM.PC] Stat Oth 09/22/21 19:56 Ordered Sequential Compression Device [OM.PC] Per Unit Routine Oth 09/23/21 06:33 Ordered Resuscitation Status Routine Resus Stat 09/23/21 06:33 Ordered Medication Orders Enoxaparin Sodium (Enoxaparin 40 Mg/0.4 Ml Syringe) 40 mg SUBCUT Q24H DONTE Dextrose/Lactated Ringer's (Dextrose 5%-Lactated Ringers) 1,000 mls @ 999 mls/hr IV ASDIRECTED [facility] Last Infusion: 09/22/21 19:20 Dose: 999 mls/hr Documented by: Admin: 09/22/21 18:19 Dose: 999 mls/hr Documented by: RONNIE Lactated Ringer's (Ringers, Lactated) 1,000 mls @ 999 mls/hr IV ASDIRECTED [facility] Last Admin: 09/22/21 20:57 Dose: 999 mls/hr Documented by: ANGÉLICA Dextrose/Lactated Ringer's (Dextrose 5%-Lactated Ringers) 1,000 mls @ 999 mls/hr IV ASDIRECTED [facility] Last Admin: 09/22/21 20:31 Dose: 999 mls/hr Documented by: ANGÉLICA Lactated Ringer's (Ringers, Lactated) 1,000 mls @ 999 mls/hr IV .BOLUS [facility] Last Admin: 09/22/21 22:54 Dose: 999 mls/hr Documented by: ANGÉLICA Dextrose/Sodium Chloride (Dextrose 5%-Normal Saline) 1,000 mls @ 150 mls/hr IV ASDIRECTED [facility] Influenza Virus Vaccine (Flu Vacc [id number](6mos Up)/Pf 60 Mcg/0.5 Ml Syringe) 60 mcg IM .ONCE ONE Stop: 09/23/21 09:01 Morphine Sulfate (Morphine 2 Mg/Ml Syringe) 2 mg IVPUSH Q4H PRN PRN Reason: Pain Ondansetron HCl (Ondansetron 4 Mg/2 Ml Sdv) 4 mg IVPUSH Q4H PRN PRN Reason: Nausea Last Admin: 09/23/21 05:00 Dose: 4 mg Documented by: REMI Pantoprazole Sodium (Pantoprazole 40 Mg/10 Ml Syringe) 40 mg IVPUSH Q24H [facility] Promethazine HCl (Promethazine 25 Mg/Ml Sdv) 25 mg IM Q6H PRN PRN Reason: Nausea Assessment/Plan Comment:: 40 yo female presenting with acute on chronic nausea and vomiting and found to have a metabolic anion gap acidosis likely due to starvation ketoacidosis. We will hydrate with dextrose fluids and monitor her anion gap.
[2021-09-23 06:53] LABS: BLOOD UREA NITROGEN,BUN 2 mg/dL (7.0-18.0); CARBON DIOXIDE,CO2 18.1 mmol/L (21.0-32.0); CHLORIDE,CL 103 mmol/L (98-107); GLUCOSE RANDOM 81 mg/dL (74-106); POTASSIUM,K 3.3 mmol/L (3.5-5.1); SODIUM,NA 137 mmol/L (136-145)
[2021-09-23 07:22] LABS: HEMOGLOBIN A1C 4.5 %
[2021-09-23] MEDS: Enoxaparin 40 MG/0.4 ML Syringe SUBCUT SCH (07:45)
[2021-09-23] MEDS: Morphine 2 MG/ML SYRINGE IVPUSH PRN ×4 (07:46→20:08)
[2021-09-23] MEDS: Pantoprazole 40 MG/10 ML Syringe IVPUSH SCH (08:11)
[2021-09-23] MEDS ORDERED: Potassium Chloride 20 MEQ Tab.ER PO ONE (10:34)
[2021-09-23] MEDS: Dextrose 5%-0.9% NaCl 1,000 ML IV SCH (13:27)
[2021-09-23] MEDS: hydrOXYzine HCl 25 MG Tab PO SCH (17:54)
[2021-09-24] MEDS: hydrOXYzine HCl 25 MG Tab PO SCH ×4 (01:30→17:00)
[2021-09-24] MEDS: Dextrose 5%-0.9% NaCl 1,000 ML IV SCH (04:43)
[2021-09-24] MEDS: Enoxaparin 40 MG/0.4 ML Syringe SUBCUT SCH (06:12)
[2021-09-24 06:21] LABS: BLOOD UREA NITROGEN,BUN 1 mg/dL (7.0-18.0); CARBON DIOXIDE,CO2 23.9 mmol/L (21.0-32.0); CHLORIDE,CL 102 mmol/L (98-107); GLUCOSE RANDOM 137 mg/dL (74-106); POTASSIUM,K 3.1 mmol/L (3.5-5.1); SODIUM,NA 137 mmol/L (136-145)
[2021-09-24] MEDS: Ondansetron 4 MG/2 ML SDV IVPUSH PRN ×2 (07:58→18:35)
[2021-09-24] MEDS: Pantoprazole 40 MG/10 ML Syringe IVPUSH SCH (08:00)
[2021-09-24] MEDS: Morphine 2 MG/ML SYRINGE IVPUSH PRN (08:01)
[2021-09-24] MEDS ORDERED: Potassium Chloride 20 MEQ Tab.ER PO ONE (09:12)
[2021-09-24] MEDS ORDERED: Sodium Chloride 0.9% with KCl 1,000 ML IV ONE (09:15)
[2021-09-24] MEDS ORDERED: Acetaminophen 325 MG Tab PO PRN (14:29)
--- NOTE | 2021-09-24 19:01 | PCM.PN ---
- General Info Date of Service: 09/24/21 - Review of Systems Systems Review Comment:: feeling better, still has some nausea with eating - Patient Data Vitals - Most Recent: Last Vital Signs Temp 36.6 C 09/24/21 15:36 Pulse 73 09/24/21 15:36 Resp 16 09/24/21 15:36 BP 139/92 H 09/24/21 15:36 Pulse Ox 96 09/24/21 15:36 Weight - Most Recent: 81.647 kg I&O - Last 24 Hours: Intake & Output 09/24/21 09/24/21 09/24/21 06:59 14:59 22:59 Intake Total 1600 2650 Output Total 1250 930 Balance 350 1720 Lab Results Last 24 Hours: Laboratory Results - last 24 hr 09/22/21 09/24/21 09/24/21 Range/Units 18:05 05:23 05:23 WBC 2.28 L (4.0-11.0) K/uL RBC 3.14 L (4.30-5.90) M/uL Hgb 9.7 L (12.0-16.0) g/dL Hct 29.1 L (36.0-46.0) % MCV 92.7 (80.0-98.0) fL MCH 30.9 (27.0-32.0) pg MCHC 33.3 (31.0-37.0) g/dL RDW Std Deviation 52.6 (28.0-62.0) fl RDW Coeff of Ga 15 (11.0-15.0) % Plt Count 174 (150-400) K/uL MPV 9.90 (7.40-12.00) fL Neut % (Auto) 29.0 L (48.0-80.0) % Lymph % (Auto) 53.1 H (16.0-40.0) % [place] % (Auto) 10.5 (0.0-15.0) % Eos % (Auto) 7.0 (0.0-7.0) % Baso % (Auto) 0.4 (0.0-1.5) % Neut # (Auto) 0.7 L (1.4-5.7) K/uL Lymph # (Auto) 1.2 (0.6-2.4) K/uL [place] # (Auto) 0.2 (0.0-0.8) K/uL Eos # (Auto) 0.2 (0.0-0.7) K/uL Baso # (Auto) 0.0 (0.0-0.1) K/uL Nucleated RBC % 0.0 /100WBC Nucleated RBCs # 0 K/uL Sodium 137 (136-145) mmol/L Potassium 3.1 L (3.5-5.1) mmol/L Chloride 102 (98-107) mmol/L Carbon Dioxide 23.9 (21.0-32.0) mmol/L BUN 1 L (7.0-18.0) mg/dL Creatinine 0.9 (0.6-1.0) mg/dL Est Cr Clr Drug Dosing 86.84 mL/min Estimated GFR (MDRD) > 60.0 ml/min Glucose 137 H (74-106) mg/dL POC Glucose (70-99) mg/dL Serum Osmolality 292 (275-295) mosm/kg Calcium 8.2 L (8.5-10.1) mg/dL Total Bilirubin 1.3 H (0.2-1.0) mg/dL AST 146 H (15-37) IU/L ALT 81 H (14-63) IU/L Alkaline Phosphatase 207 H (46-116) U/L Total Protein 5.8 L (6.4-8.2) g/dL Albumin 2.6 L (3.4-5.0) g/dL Globulin 3.2 (2.6-4.0) g/dL Albumin/Globulin Ratio 0.8 L (0.9-1.6) 09/24/21 09/24/21 09/24/21 Range/Units 06:11 11:39 17:00 WBC (4.0-11.0) K/uL RBC (4.30-5.90) M/uL Hgb (12.0-16.0) g/dL Hct (36.0-46.0) % MCV (80.0-98.0) fL MCH (27.0-32.0) pg MCHC (31.0-37.0) g/dL RDW Std Deviation (28.0-62.0) fl RDW Coeff of Ga (11.0-15.0) % Plt Count (150-400) K/uL MPV (7.40-12.00) fL Neut % (Auto) (48.0-80.0) % Lymph % (Auto) (16.0-40.0) % [place] % (Auto) (0.0-15.0) % Eos % (Auto) (0.0-7.0) % Baso % (Auto) (0.0-1.5) % Neut # (Auto) (1.4-5.7) K/uL Lymph # (Auto) (0.6-2.4) K/uL [place] # (Auto) (0.0-0.8) K/uL Eos # (Auto) (0.0-0.7) K/uL Baso # (Auto) (0.0-0.1) K/uL Nucleated RBC % /100WBC Nucleated RBCs # K/uL Sodium (136-145) mmol/L Potassium (3.5-5.1) mmol/L Chloride (98-107) mmol/L Carbon Dioxide (21.0-32.0) mmol/L BUN (7.0-18.0) mg/dL Creatinine (0.6-1.0) mg/dL Est Cr Clr Drug Dosing mL/min Estimated GFR (MDRD) ml/min Glucose (74-106) mg/dL POC Glucose 143 H 134 H 108 H (70-99) mg/dL Serum Osmolality (275-295) mosm/kg Calcium (8.5-10.1) mg/dL Total Bilirubin (0.2-1.0) mg/dL AST (15-37) IU/L ALT (14-63) IU/L Alkaline Phosphatase (46-116) U/L Total Protein (6.4-8.2) g/dL Albumin (3.4-5.0) g/dL Globulin (2.6-4.0) g/dL Albumin/Globulin Ratio (0.9-1.6) Eb Results Last 24 Hours: Microbiology 09/22/21 20:33 Aerobic Blood Culture - Preliminary Blood - Venous - Lab Draw NO GROWTH AFTER 1 DAY Anaerobic Blood Culture - Preliminary NO GROWTH AFTER 1 DAY 09/22/21 20:27 Aerobic Blood Culture - Preliminary Blood - Venous NO GROWTH AFTER 1 DAY Anaerobic Blood Culture - Preliminary NO GROWTH AFTER 1 DAY Med Orders - Current: Current Medications Acetaminophen (Acetaminophen 325 Mg Tab) 650 mg PO Q6H PRN PRN Reason: Pain/Fever Enoxaparin Sodium (Enoxaparin 40 Mg/0.4 Ml Syringe) 40 mg SUBCUT Q24H [facility] Last Admin: 09/24/21 06:12 Dose: 40 mg Documented by: Hydroxyzine HCl (Hydroxyzine Hcl 25 Mg Tab) 25 mg PO Q8H [facility] Last Admin: 09/24/21 17:00 Dose: 25 mg Documented by: Dextrose/Lactated Ringer's (Dextrose 5%-Lactated Ringers) 1,000 mls @ 999 mls/hr IV ASDIRECTED [facility] Last Infusion: 09/22/21 19:20 Dose: Infused Documented by: Lactated Ringer's (Ringers, Lactated) 1,000 mls @ 999 mls/hr IV ASDIRECTED [facility] Last Admin: 09/22/21 20:57 Dose: 999 mls/hr Documented by: Dextrose/Lactated Ringer's (Dextrose 5%-Lactated Ringers) 1,000 mls @ 999 mls/hr IV ASDIRECTED [facility] Last Admin: 09/22/21 20:31 Dose: 999 mls/hr Documented by: Lactated Ringer's (Ringers, Lactated) 1,000 mls @ 999 mls/hr IV .BOLUS [facility] Last Admin: 09/22/21 22:54 Dose: 999 mls/hr Documented by: Morphine Sulfate (Morphine 2 Mg/Ml Syringe) 2 mg IVPUSH Q4H PRN PRN Reason: Pain Last Admin: 09/24/21 08:01 Dose: 2 mg Documented by: Ondansetron HCl (Ondansetron 4 Mg/2 Ml Sdv) 4 mg IVPUSH Q4H PRN PRN Reason: Nausea Last Admin: 09/24/21 18:35 Dose: 4 mg Documented by: Pantoprazole Sodium (Pantoprazole 40 Mg/10 Ml Syringe) 40 mg IVPUSH Q24H [facility] Last Admin: 09/24/21 08:00 Dose: 40 mg Documented by: Promethazine HCl (Promethazine 25 Mg/Ml Sdv) 25 mg IM Q6H PRN PRN Reason: Nausea Last Admin: 09/24/21 11:38 Dose: 25 mg Documented by: Discontinued Medications Acetaminophen (Acetaminophen 325 Mg Tab) 650 mg PO Q6H PRN PRN Reason: Pain Diphenhydramine HCl (Diphenhydramine 50 Mg/Ml Sdv) 25 mg IVPUSH ONETIME ONE Stop: 09/22/21 17:41 Last Admin: 09/22/21 18:13 Dose: 25 mg Documented by: Hydroxyzine HCl (Hydroxyzine Hcl 25 Mg Tab) 25 mg PO TID [facility] Last Admin: 09/24/21 14:59 Dose: Not Given Documented by: Dextrose/Sodium Chloride (Dextrose 5%-Normal Saline) 1,000 mls @ 150 mls/hr IV ASDIRECTED [facility] Last Admin: 09/24/21 04:43 Dose: 150 mls/hr Documented by: Potassium Chloride/Sodium Chloride (Normal Saline With 40 Meq Kcl) 1,000 mls @ 150 mls/hr IV ONETIME ONE Stop: 09/24/21 15:54 Last Admin: 09/24/21 10:10 Dose: 150 mls/hr Documented by: Influenza Virus Vaccine (Flu Vacc [id number](6mos Up)/Pf 60 Mcg/0.5 Ml Syringe) 60 mcg IM .ONCE ONE Stop: 09/23/21 09:01 Iopamidol (Iopamidol 755 Mg/Ml 500 Ml Multipack Bottle) 100 ml IVPUSH ONETIME ONE Stop: 09/22/21 20:16 Last Admin: 09/22/21 20:19 Dose: 100 ml Documented by: Ketorolac Tromethamine (Ketorolac 15 Mg/Ml Sdv) 15 mg IVPUSH ONETIME ONE Stop: 09/22/21 17:41 Last Admin: 09/22/21 18:16 Dose: 15 mg Documented by: Morphine Sulfate (Morphine 2 Mg/Ml Syringe) 2 mg IVPUSH ONETIME ONE Stop: 09/22/21 22:49 Last Admin: 09/22/21 22:54 Dose: 2 mg Documented by: Ondansetron HCl (Ondansetron 4 Mg/2 Ml Sdv) 4 mg IVPUSH ONETIME ONE Stop: 09/22/21 17:42 Last Admin: 09/22/21 18:16 Dose: 4 mg Documented by: Ondansetron HCl (Ondansetron 4 Mg/2 Ml Sdv) 4 mg IVPUSH ONETIME ONE Stop: 09/22/21 22:49 Last Admin: 09/22/21 22:54 Dose: 4 mg Documented by: Potassium Chloride (Potassium Chloride 20 Meq Tab.Er) 40 meq PO ONETIME ONE Stop: 09/23/21 10:35 Last Admin: 09/23/21 11:35 Dose: 40 meq Documented by: Potassium Chloride (Potassium Chloride 20 Meq Tab.Er) 40 meq PO ONETIME ONE Stop: 09/24/21 09:13 Last Admin: 09/24/21 10:10 Dose: 40 meq Documented by: Prochlorperazine Edisylate (Prochlorperazine 10 Mg/2 Ml Sdv) 5 mg IVPUSH ONETIME ONE Stop: 09/22/21 17:41 Last Admin: 09/22/21 18:15 Dose: 5 mg Documented by: - Exam General: Alert, Oriented Neck: Supple Lungs: Clear to Auscultation, Normal Respiratory Effort Cardiovascular: Regular Rate, Regular Rhythm GI/Abdominal Exam: Soft, Non-Tender, No Distention Extremities: Non-Tender, No Pedal Edema Skin: Warm, Dry, Intact Neurological: No New Focal Deficit - Patient Data Lab Results Last 24 hrs: Laboratory Results - last 24 hr 09/22/21 09/24/21 09/24/21 Range/Units 18:05 05:23 05:23 WBC 2.28 L (4.0-11.0) K/uL RBC 3.14 L (4.30-5.90) M/uL Hgb 9.7 L (12.0-16.0) g/dL Hct 29.1 L (36.0-46.0) % MCV 92.7 (80.0-98.0) fL MCH 30.9 (27.0-32.0) pg MCHC 33.3 (31.0-37.0) g/dL RDW Std Deviation 52.6 (28.0-62.0) fl RDW Coeff of Ga 15 (11.0-15.0) % Plt Count 174 (150-400) K/uL MPV 9.90 (7.40-12.00) fL Neut % (Auto) 29.0 L (48.0-80.0) % Lymph % (Auto) 53.1 H (16.0-40.0) % [place] % (Auto) 10.5 (0.0-15.0) % Eos % (Auto) 7.0 (0.0-7.0) % Baso % (Auto) 0.4 (0.0-1.5) % Neut # (Auto) 0.7 L (1.4-5.7) K/uL Lymph # (Auto) 1.2 (0.6-2.4) K/uL [place] # (Auto) 0.2 (0.0-0.8) K/uL Eos # (Auto) 0.2 (0.0-0.7) K/uL Baso # (Auto) 0.0 (0.0-0.1) K/uL Nucleated RBC % 0.0 /100WBC Nucleated RBCs # 0 K/uL Sodium 137 (136-145) mmol/L Potassium 3.1 L (3.5-5.1) mmol/L Chloride 102 (98-107) mmol/L Carbon Dioxide 23.9 (21.0-32.0) mmol/L BUN 1 L (7.0-18.0) mg/dL Creatinine 0.9 (0.6-1.0) mg/dL Est Cr Clr Drug Dosing 86.84 mL/min Estimated GFR (MDRD) > 60.0 ml/min Glucose 137 H (74-106) mg/dL POC Glucose (70-99) mg/dL Serum Osmolality 292 (275-295) mosm/kg Calcium 8.2 L (8.5-10.1) mg/dL Total Bilirubin 1.3 H (0.2-1.0) mg/dL AST 146 H (15-37) IU/L ALT 81 H (14-63) IU/L Alkaline Phosphatase 207 H (46-116) U/L Total Protein 5.8 L (6.4-8.2) g/dL Albumin 2.6 L (3.4-5.0) g/dL Globulin 3.2 (2.6-4.0) g/dL Albumin/Globulin Ratio 0.8 L (0.9-1.6) 09/24/21 09/24/21 09/24/21 Range/Units 06:11 11:39 17:00 WBC (4.0-11.0) K/uL RBC (4.30-5.90) M/uL Hgb (12.0-16.0) g/dL Hct (36.0-46.0) % MCV (80.0-98.0) fL MCH (27.0-32.0) pg MCHC (31.0-37.0) g/dL RDW Std Deviation (28.0-62.0) fl RDW Coeff of Ga (11.0-15.0) % Plt Count (150-400) K/uL MPV (7.40-12.00) fL Neut % (Auto) (48.0-80.0) % Lymph % (Auto) (16.0-40.0) % [place] % (Auto) (0.0-15.0) % Eos % (Auto) (0.0-7.0) % Baso % (Auto) (0.0-1.5) % Neut # (Auto) (1.4-5.7) K/uL Lymph # (Auto) (0.6-2.4) K/uL [place] # (Auto) (0.0-0.8) K/uL Eos # (Auto) (0.0-0.7) K/uL Baso # (Auto) (0.0-0.1) K/uL Nucleated RBC % /100WBC Nucleated RBCs # K/uL Sodium (136-145) mmol/L Potassium (3.5-5.1) mmol/L Chloride (98-107) mmol/L Carbon Dioxide (21.0-32.0) mmol/L BUN (7.0-18.0) mg/dL Creatinine (0.6-1.0) mg/dL Est Cr Clr Drug Dosing mL/min Estimated GFR (MDRD) ml/min Glucose (74-106) mg/dL POC Glucose 143 H 134 H 108 H (70-99) mg/dL Serum Osmolality (275-295) mosm/kg Calcium (8.5-10.1) mg/dL Total Bilirubin (0.2-1.0) mg/dL AST (15-37) IU/L ALT (14-63) IU/L Alkaline Phosphatase (46-116) U/L Total Protein (6.4-8.2) g/dL Albumin (3.4-5.0) g/dL Globulin (2.6-4.0) g/dL Albumin/Globulin Ratio (0.9-1.6) Result Diagrams: 09/24/21 05:23 09/24/21 05:23 Eb Results Last 24 hrs: Microbiology 09/22/21 20:33 Aerobic Blood Culture - Preliminary Blood - Venous - Lab Draw NO GROWTH AFTER 1 DAY Anaerobic Blood Culture - Preliminary NO GROWTH AFTER 1 DAY 09/22/21 20:27 Aerobic Blood Culture - Preliminary Blood - Venous NO GROWTH AFTER 1 DAY Anaerobic Blood Culture - Preliminary NO GROWTH AFTER 1 DAY Sepsis Event Note - Evaluation Sepsis Screening Result: No Definite Risk - Focused Exam Vital Signs: Vital Signs Temp Pulse Resp BP Pulse Ox 09/24/21 15:36 36.6 C 73 16 139/92 H 96 09/24/21 11:36 36.3 C 78 16 138/87 98 09/24/21 08:04 36.3 C 100 16 129/87 98 - Problem List & Annotations (1) Starvation ketoacidosis SNOMED Code(s): 73026706 Code(s): E87.2 - ACIDOSIS Status: Acute Current Visit: Yes (2) Dehydration SNOMED Code(s): 86672604 Code(s): E86.0 - DEHYDRATION Status: Acute Current Visit: Yes (3) High anion gap metabolic acidosis SNOMED Code(s): 18907677 Code(s): E87.2 - ACIDOSIS Status: Acute Current Visit: Yes (4) Elevated bilirubin SNOMED Code(s): 79375188 Code(s): R17 - UNSPECIFIED JAUNDICE Status: Acute Current Visit: No - Problem List Review Problem List Initiated/Reviewed/Updated: Yes - My Orders Last 24 Hours: My Active Orders 09/24/21 14:29 Acetaminophen [TylenoL] 650 mg PO Q6H PRN 09/24/21 18:00 hydrOXYzine HCL [Atarax] 25 mg PO Q8H 09/25/21 05:11 CBC WITH AUTO DIFF [HEME] AM COMPREHENSIVE METABOLIC PN,CMP [CHEM] AM 09/26/21 05:11 CBC WITH AUTO DIFF [HEME] AM COMPREHENSIVE METABOLIC PN,CMP [CHEM] AM - Plan Plan:: 40 yo female presenting with acute on chronic nausea and vomiting and found to have a metabolic anion gap acidosis likely due to starvation ketoacidosis. Ketoacidosis: anion gap resolved after IV fluids, will monitor another night to ensure tolerating oral diet and likely discharge home tomorrow.
[2021-09-25] MEDS: Morphine 2 MG/ML SYRINGE IVPUSH PRN ×2 (01:18→06:47)
[2021-09-25] MEDS: hydrOXYzine HCl 25 MG Tab PO SCH ×2 (01:58→10:23)
[2021-09-25] MEDS: Pantoprazole 40 MG/10 ML Syringe IVPUSH SCH (06:23)
[2021-09-25] MEDS: Enoxaparin 40 MG/0.4 ML Syringe SUBCUT SCH (06:23)
[2021-09-25] MEDS: Ondansetron 4 MG/2 ML SDV IVPUSH PRN (06:47)
[2021-09-25 07:44] LABS: CARBON DIOXIDE,CO2 25.6 mmol/L (21.0-32.0); CHLORIDE,CL 101 mmol/L (98-107); GLUCOSE RANDOM 101 mg/dL (74-106); SODIUM,NA 139 mmol/L (136-145)
[2021-09-25] MEDS ORDERED: Potassium Chloride 20 MEQ Tab.ER PO ONE ×2 (07:58→10:15)
[2021-09-25 08:09] LABS: BLOOD UREA NITROGEN,BUN 1 mg/dL (7.0-18.0)
--- NOTE | 2021-09-25 12:03 | PCM.DCSUM1 ---
Discharge Summary - Hospital Course HPI Initial Comments: 40 yo female with pmh of gastric bypass and jaundice who presents with headache, nausea and vomiting. Patient has been struggling with nausea and vomiting for over a month. She has had severe nausea over the past four days and has not eating anything. Her headache started yesterday. She denies any Tylenol, ASA, or alcohol use. Patient denies any history of diabetes but does report being placed on metformin after her gastric bypass for blood glucose control even though she had issues with low blood glucose. She was admitted here on 08/02/21 with nausea, headache and noted to have a bilirubin of 10. Her work up consistent of an MRCP that reported fatty liver disease and no biliary pathology, HIDA scan mildly low gallbladder ejection fraction. She was referred to GI and they performed liver biopsy which show fatty liver disease. She also had an EGD, and colonoscopy. CT scan of abdomen performed on admission was unremarkable. She was noted on labs to have a metabolic acidosis with positive ketones. - Discharge Data Discharge Date: 09/25/21 Discharge Disposition: Home, Self-Care 01 Condition: Stable - Referral to Home Health Primary Care Physician: PCP None - Discharge Diagnosis/Problem(s) (1) Starvation ketoacidosis SNOMED Code(s): 27453763 ICD Code: E87.2 - ACIDOSIS Status: Acute Current Visit: Yes (2) Dehydration SNOMED Code(s): 62782150 ICD Code: E86.0 - DEHYDRATION Status: Acute Current Visit: Yes (3) High anion gap metabolic acidosis SNOMED Code(s): 17475322 ICD Code: E87.2 - ACIDOSIS Status: Acute Current Visit: Yes (4) Elevated bilirubin SNOMED Code(s): 81678230 ICD Code: R17 - UNSPECIFIED JAUNDICE Status: Acute Current Visit: No - Patient Summary/Data Hospital Course: Patient was admitted for starvation ketoacidosis. She was treated with IV fluids with glucose and her anion gap resolved. Her symptoms improved. She was monitored a day without IV fluids and she is tolerating an oral diet. She is to be discharged home to follow up with her PCP and GI specialist - Patient Instructions Diet: Usual Diet as Tolerated Activity: As Tolerated Notify Provider of: Fever, Increased Pain, Nausea and/or Vomiting - Discharge Plan Prescriptions/Med Rec: Potassium Chloride 20 meq PO DAILY #5 packet Home Medications: Home Meds Folic Acid 1 mg PO DAILY #30 tab 08/06/21 [Rx] Multivitamins with Iron [Vitalets] 1 each PO DAILY #30 tab.chew 08/06/21 [Rx] Famotidine 40 mg PO DAILY 09/22/21 [History] Omeprazole 20 mg PO BID 09/22/21 [History] hydrOXYzine HCL [Hydroxyzine HCl] 25 mg PO TID 09/22/21 [History] ondansetron HCL [Zofran] 4 mg PO DAILY 09/23/21 [History] Potassium Chloride 20 meq PO DAILY #5 packet 09/25/21 [Rx] Patient Handouts: Migraine Headache, [id number], Dehydration, Adult, [id number], Metabolic Acidosis Referrals: Harvey Todd MD [Resident] - 10/04/21 2:00 pm - Discharge Summary/Plan Comment DC Time >30 min.: No Total # of Minutes for Discharge Time: 20 - Patient Data Vitals - Most Recent: Last Vital Signs Temp 36.1 C 09/25/21 08:00 Pulse 93 09/25/21 08:00 Resp 15 09/25/21 08:00 BP 118/69 09/25/21 08:00 Pulse Ox 94 L 09/25/21 08:00 Weight - Most Recent: 81.647 kg I&O - Last 24 hours: Intake & Output 09/24/21 09/25/21 09/25/21 22:59 06:59 14:59 Intake Total 2650 1000 1000 Output Total 930 800 Balance 0170 361 8428 Lab Results - Last 24 hrs: Laboratory Results - last 24 hr 09/22/21 09/23/21 09/23/21 Range/Units 20:10 05:58 05:58 WBC (4.0-11.0) K/uL RBC (4.30-5.90) M/uL Hgb (12.0-16.0) g/dL Hct (36.0-46.0) % MCV (80.0-98.0) fL MCH (27.0-32.0) pg MCHC (31.0-37.0) g/dL RDW Std Deviation (28.0-62.0) fl RDW Coeff of Ga (11.0-15.0) % Plt Count (150-400) K/uL MPV (7.40-12.00) fL Neut % (Auto) (48.0-80.0) % Lymph % (Auto) (16.0-40.0) % [place] % (Auto) (0.0-15.0) % Eos % (Auto) (0.0-7.0) % Baso % (Auto) (0.0-1.5) % Neut # (Auto) (1.4-5.7) K/uL Lymph # (Auto) (0.6-2.4) K/uL [place] # (Auto) (0.0-0.8) K/uL Eos # (Auto) (0.0-0.7) K/uL Baso # (Auto) (0.0-0.1) K/uL Nucleated RBC % /100WBC Nucleated RBCs # K/uL Sodium (136-145) mmol/L Potassium (3.5-5.1) mmol/L Chloride (98-107) mmol/L Carbon Dioxide (21.0-32.0) mmol/L BUN (7.0-18.0) mg/dL Creatinine (0.6-1.0) mg/dL Est Cr Clr Drug Dosing mL/min Estimated GFR (MDRD) ml/min Glucose (74-106) mg/dL POC Glucose (70-99) mg/dL Serum Osmolality 290 (275-295) mosm/kg Calcium (8.5-10.1) mg/dL Total Bilirubin (0.2-1.0) mg/dL AST (15-37) IU/L ALT (14-63) IU/L Alkaline Phosphatase (46-116) U/L Total Protein (6.4-8.2) g/dL Albumin (3.4-5.0) g/dL Globulin (2.6-4.0) g/dL Albumin/Globulin Ratio (0.9-1.6) Urine Osmolality 458 (300-900) mosm/kg B-Hydroxybutyrate 4.9 H* (0.0-0.2) mmol/L 09/24/21 09/25/21 09/25/21 Range/Units 17:00 06:16 06:27 WBC 2.97 L (4.0-11.0) K/uL RBC 3.46 L (4.30-5.90) M/uL Hgb 10.5 L (12.0-16.0) g/dL Hct 32.0 L (36.0-46.0) % MCV 92.5 (80.0-98.0) fL MCH 30.3 (27.0-32.0) pg MCHC 32.8 (31.0-37.0) g/dL RDW Std Deviation 53.1 (28.0-62.0) fl RDW Coeff of Ga 16 H (11.0-15.0) % Plt Count 203 (150-400) K/uL MPV 10.90 (7.40-12.00) fL Neut % (Auto) 28.6 L (48.0-80.0) % Lymph % (Auto) 54.2 H (16.0-40.0) % [place] % (Auto) 11.4 (0.0-15.0) % Eos % (Auto) 5.1 (0.0-7.0) % Baso % (Auto) 0.7 (0.0-1.5) % Neut # (Auto) 0.9 L (1.4-5.7) K/uL Lymph # (Auto) 1.6 (0.6-2.4) K/uL [place] # (Auto) 0.3 (0.0-0.8) K/uL Eos # (Auto) 0.2 (0.0-0.7) K/uL Baso # (Auto) 0.0 (0.0-0.1) K/uL Nucleated RBC % 0.0 /100WBC Nucleated RBCs # 0 K/uL Sodium (136-145) mmol/L Potassium (3.5-5.1) mmol/L Chloride (98-107) mmol/L Carbon Dioxide (21.0-32.0) mmol/L BUN (7.0-18.0) mg/dL Creatinine (0.6-1.0) mg/dL Est Cr Clr Drug Dosing mL/min Estimated GFR (MDRD) ml/min Glucose (74-106) mg/dL POC Glucose 108 H 106 H (70-99) mg/dL Serum Osmolality (275-295) mosm/kg Calcium (8.5-10.1) mg/dL Total Bilirubin (0.2-1.0) mg/dL AST (15-37) IU/L ALT (14-63) IU/L Alkaline Phosphatase (46-116) U/L Total Protein (6.4-8.2) g/dL Albumin (3.4-5.0) g/dL Globulin (2.6-4.0) g/dL Albumin/Globulin Ratio (0.9-1.6) Urine Osmolality (300-900) mosm/kg B-Hydroxybutyrate (0.0-0.2) mmol/L 09/25/21 Range/Units 06:27 WBC (4.0-11.0) K/uL RBC (4.30-5.90) M/uL Hgb (12.0-16.0) g/dL Hct (36.0-46.0) % MCV (80.0-98.0) fL MCH (27.0-32.0) pg MCHC (31.0-37.0) g/dL RDW Std Deviation (28.0-62.0) fl RDW Coeff of Ga (11.0-15.0) % Plt Count (150-400) K/uL MPV (7.40-12.00) fL Neut % (Auto) (48.0-80.0) % Lymph % (Auto) (16.0-40.0) % [place] % (Auto) (0.0-15.0) % Eos % (Auto) (0.0-7.0) % Baso % (Auto) (0.0-1.5) % Neut # (Auto) (1.4-5.7) K/uL Lymph # (Auto) (0.6-2.4) K/uL [place] # (Auto) (0.0-0.8) K/uL Eos # (Auto) (0.0-0.7) K/uL Baso # (Auto) (0.0-0.1) K/uL Nucleated RBC % /100WBC Nucleated RBCs # K/uL Sodium 139 (136-145) mmol/L Potassium 3.0 L (3.5-5.1) mmol/L Chloride 101 (98-107) mmol/L Carbon Dioxide 25.6 (21.0-32.0) mmol/L BUN 1 L (7.0-18.0) mg/dL Creatinine 0.7 (0.6-1.0) mg/dL Est Cr Clr Drug Dosing 111.65 mL/min Estimated GFR (MDRD) > 60.0 ml/min Glucose 101 (74-106) mg/dL POC Glucose (70-99) mg/dL Serum Osmolality (275-295) mosm/kg Calcium 8.9 (8.5-10.1) mg/dL Total Bilirubin 1.5 H (0.2-1.0) mg/dL AST 163 H (15-37) IU/L ALT 82 H (14-63) IU/L Alkaline Phosphatase 218 H (46-116) U/L Total Protein 6.7 (6.4-8.2) g/dL Albumin 2.8 L (3.4-5.0) g/dL Globulin 3.9 (2.6-4.0) g/dL Albumin/Globulin Ratio 0.7 L (0.9-1.6) Urine Osmolality (300-900) mosm/kg B-Hydroxybutyrate (0.0-0.2) mmol/L DORA Results - Last 24 hrs: Microbiology 09/22/21 20:33 Aerobic Blood Culture - Preliminary Blood - Venous - Lab Draw NO GROWTH AFTER 2 DAYS Anaerobic Blood Culture - Preliminary NO GROWTH AFTER 2 DAYS 09/22/21 20:27 Aerobic Blood Culture - Preliminary Blood - Venous NO GROWTH AFTER 2 DAYS Anaerobic Blood Culture - Preliminary NO GROWTH AFTER 2 DAYS Med Orders - Current: Current Medications Acetaminophen (Acetaminophen 325 Mg Tab) 650 mg PO Q6H PRN PRN Reason: Pain/Fever Enoxaparin Sodium (Enoxaparin 40 Mg/0.4 Ml Syringe) 40 mg SUBCUT Q24H DONTE Last Admin: 09/25/21 06:23 Dose: 40 mg Documented by: Hydroxyzine HCl (Hydroxyzine Hcl 25 Mg Tab) 25 mg PO Q8H DONTE Last Admin: 09/25/21 10:23 Dose: 25 mg Documented by: Dextrose/Lactated Ringer's (Dextrose 5%-Lactated Ringers) 1,000 mls @ 999 mls/hr IV ASDIRECTED DONTE Last Infusion: 09/22/21 19:20 Dose: Infused Documented by: Lactated Ringer's (Ringers, Lactated) 1,000 mls @ 999 mls/hr IV ASDIRECTED DONTE Last Admin: 09/22/21 20:57 Dose: 999 mls/hr Documented by: Dextrose/Lactated Ringer's (Dextrose 5%-Lactated Ringers) 1,000 mls @ 999 mls/ hr IV ASDIRECTED [facility] Last Admin: 09/22/21 20:31 Dose: 999 mls/hr Documented by: Lactated Ringer's (Ringers, Lactated) 1,000 mls @ 999 mls/hr IV .BOLUS [facility] Last Admin: 09/22/21 22:54 Dose: 999 mls/hr Documented by: Morphine Sulfate (Morphine 2 Mg/Ml Syringe) 2 mg IVPUSH Q4H PRN PRN Reason: Pain Last Admin: 09/25/21 06:47 Dose: 2 mg Documented by: Ondansetron HCl (Ondansetron 4 Mg/2 Ml Sdv) 4 mg IVPUSH Q4H PRN PRN Reason: Nausea Last Admin: 09/25/21 06:47 Dose: 4 mg Documented by: Pantoprazole Sodium (Pantoprazole 40 Mg/10 Ml Syringe) 40 mg IVPUSH Q24H [facility] Last Admin: 09/25/21 06:23 Dose: 40 mg Documented by: Promethazine HCl (Promethazine 25 Mg/Ml Sdv) 25 mg IM Q6H PRN PRN Reason: Nausea Last Admin: 09/24/21 11:38 Dose: 25 mg Documented by: Discontinued Medications Acetaminophen (Acetaminophen 325 Mg Tab) 650 mg PO Q6H PRN PRN Reason: Pain Diphenhydramine HCl (Diphenhydramine 50 Mg/Ml Sdv) 25 mg IVPUSH ONETIME ONE Stop: 09/22/21 17:41 Last Admin: 09/22/21 18:13 Dose: 25 mg Documented by: Hydroxyzine HCl (Hydroxyzine Hcl 25 Mg Tab) 25 mg PO TID [facility] Last Admin: 09/24/21 14:59 Dose: Not Given Documented by: Dextrose/Sodium Chloride (Dextrose 5%-Normal Saline) 1,000 mls @ 150 mls/hr IV ASDIRECTED [facility] Last Admin: 09/24/21 04:43 Dose: 150 mls/hr Documented by: Potassium Chloride/Sodium Chloride (Normal Saline With 40 Meq Kcl) 1,000 mls @ 150 mls/hr IV ONETIME ONE Stop: 09/24/21 15:54 Last Admin: 09/24/21 10:10 Dose: 150 mls/hr Documented by: Influenza Virus Vaccine (Flu Vacc Au2402-80(6mos Up)/Pf 60 Mcg/0.5 Ml Syringe) 60 mcg IM .ONCE ONE Stop: 09/23/21 09:01 Iopamidol (Iopamidol 755 Mg/Ml 500 Ml Multipack Bottle) 100 ml IVPUSH ONETIME ONE Stop: 09/22/21 20:16 Last Admin: 09/22/21 20:19 Dose: 100 ml Documented by: Ketorolac Tromethamine (Ketorolac 15 Mg/Ml Sdv) 15 mg IVPUSH ONETIME ONE Stop: 09/22/21 17:41 Last Admin: 09/22/21 18:16 Dose: 15 mg Documented by: Morphine Sulfate (Morphine 2 Mg/Ml Syringe) 2 mg IVPUSH ONETIME ONE Stop: 09/22/21 22:49 Last Admin: 09/22/21 22:54 Dose: 2 mg Documented by: Ondansetron HCl (Ondansetron 4 Mg/2 Ml Sdv) 4 mg IVPUSH ONETIME ONE Stop: 09/22/21 17:42 Last Admin: 09/22/21 18:16 Dose: 4 mg Documented by: Ondansetron HCl (Ondansetron 4 Mg/2 Ml Sdv) 4 mg IVPUSH ONETIME ONE Stop: 09/22/21 22:49 Last Admin: 09/22/21 22:54 Dose: 4 mg Documented by: Potassium Chloride (Potassium Chloride 20 Meq Tab.Er) 40 meq PO ONETIME ONE Stop: 09/23/21 10:35 Last Admin: 09/23/21 11:35 Dose: 40 meq Documented by: Potassium Chloride (Potassium Chloride 20 Meq Tab.Er) 40 meq PO ONETIME ONE Stop: 09/24/21 09:13 Last Admin: 09/24/21 10:10 Dose: 40 meq Documented by: Potassium Chloride (Potassium Chloride 20 Meq Tab.Er) 60 meq PO ONETIME ONE Stop: 09/25/21 10:16 Last Admin: 09/25/21 10:23 Dose: 60 meq Documented by: Prochlorperazine Edisylate (Prochlorperazine 10 Mg/2 Ml Sdv) 5 mg IVPUSH ONETIME ONE Stop: 09/22/21 17:41 Last Admin: 09/22/21 18:15 Dose: 5 mg Documented by:
== END 2021-09-25 13:15 | disposition home or self-care (01) | DRG 422 ==
LOC: MW.ED 16:52 → MW.MS 23:01
PROVIDERS: ADMIT Internal Medicine; ATTEND Internal Medicine
DX: E87.2 Acidosis (principal); E86.0 Dehydration; R17 Unspecified jaundice; K21.9 Gastro-esophageal reflux disease without esophagitis; E66.9 Obesity, unspecified; F32.A Depression, unspecified; Z20.822 Contact with and (suspected) exposure to COVID-19; Z98.890 Other specified postprocedural states; Z98.84 Bariatric surgery status; Z87.891 Personal history of nicotine dependence; Z79.899 Other long term (current) drug therapy; Z88.1 Allergy status to other antibiotic agents; Z88.2 Allergy status to sulfonamides
CPT/HCPCS: 0240U; 36415; 71045; 71045-26; 74177; 74177-26; 80048; 80053; 80143; 80179; 80305-QW; 80307; 81001; 81025; 82009; 82010; 82803; 82947; 83036; 83605; 83690; 83735; 83930; 83935; 84484; 85025; 85610; 85730; 87040; 93005; 96374; 96375; 96376; 99285-25; A9270-GY; C9113; J0780; J1200; J1650; J1885; J2270; J2405; J2550; J3480; J7042; J7120; J7121; Q9967

== ENCOUNTER 2022-01-24 09:57 | Emergency (ER) | payer BC, MEDICAID ==
[2022-01-24] MEDS ORDERED: Sodium Chloride 0.9% 2.5 ML Syringe FLUSH PRN (10:09)
[2022-01-24] MEDS ORDERED: Sodium Chloride 0.9% 10 ML Syringe FLUSH PRN (10:09)
[2022-01-24] MEDS ORDERED: Lactated Ringers 1,000 ML IV ONE (10:51)
[2022-01-24] MEDS ORDERED: Ondansetron 4 MG/2 ML SDV IVPUSH ONE (10:52)
[2022-01-24 10:56] LABS: CARBON DIOXIDE,CO2 20.3 mmol/L (21.0-32.0); POTASSIUM,K 3.3 mmol/L (3.5-5.1)
[2022-01-24] MEDS ORDERED: Pantoprazole 80 MG in Sodium Chloride 0.9% 10 ML IVPUSH ONE (11:22)
[2022-01-24 11:43] LABS: CORONAVIRUS COVID-19 NAA NEGATIVE (NEGATIVE); INFLUENZA A NAA NEGATIVE (NEGATIVE); INFLUENZA B NAA NEGATIVE (NEGATIVE)
[2022-01-24] MEDS ORDERED: Sodium Chloride 0.9% 1,000 ML IV ONE (13:48)
[2022-01-24] MEDS ORDERED: Iopamidol 755 MG/ML 500 ML Multipack Bottle IVPUSH STA (14:56)
== END 2022-01-24 19:25 ==
LOC: MW.ED 09:57
DX: K56.1 Intussusception (principal); E80.6 Other disorders of bilirubin metabolism; K21.9 Gastro-esophageal reflux disease without esophagitis; E66.9 Obesity, unspecified; Z68.25 Body mass index [BMI] 25.0-25.9, adult; Z79.899 Other long term (current) drug therapy; Z20.822 Contact with and (suspected) exposure to COVID-19; Z88.1 Allergy status to other antibiotic agents; Z88.2 Allergy status to sulfonamides
CPT/HCPCS: 0240U; 36415; 71045; 74177; 76705; 80053; 81001; 83690; 83735; 84100; 84484; 84703; 85025; 87086; 87088; 87186; 93005; 96374; 96375; 99285; C9113; J2405; J7030; J7120; Q9967; J3490

== ENCOUNTER 2022-02-28 10:40 | Observation (INO) | payer BC, MEDICAID ==
[2022-02-28] MEDS ORDERED: Sodium Chloride 0.9% 1,000 ML IV ONE ×2 (11:12→12:49)
[2022-02-28] MEDS ORDERED: Promethazine 25 MG/ML SDV IM ONE (11:12)
[2022-02-28 12:20] LABS: BLOOD UREA NITROGEN,BUN 5 mg/dL (7.0-18.0); CARBON DIOXIDE,CO2 19.3 mmol/L (21.0-32.0); CHLORIDE,CL 93 mmol/L (98-107); GLUCOSE RANDOM 66 mg/dL (74-106); POTASSIUM,K 2.8 mmol/L (3.5-5.1); SODIUM,NA 137 mmol/L (136-145)
[2022-02-28] MEDS ORDERED: Potassium Chloride Riders 40 MEQ in Premix Bag 1 BAG IV ONE (12:46)
[2022-02-28] MEDS ORDERED: 50% Dextrose in Water 50 ML Syringe IVPUSH ONE (12:47)
[2022-02-28] MEDS ORDERED: Iopamidol 755 MG/ML 500 ML Multipack Bottle IVPUSH STA (12:51)
[2022-02-28] MEDS ORDERED: Sodium Chloride 0.9% 10 ML Syringe FLUSH PRN (15:31)
[2022-02-28] MEDS ORDERED: Sodium Chloride 0.9% 2.5 ML Syringe FLUSH PRN (15:31)
[2022-02-28] MEDS ORDERED: 50% Dextrose in Water 50 ML Syringe IVPUSH PRN (15:33)
[2022-02-28] MEDS ORDERED: D5%-0.9% NaCl w/ KCl 40 meq 1,000 ML IV SCH (16:00)
[2022-02-28] MEDS: Pantoprazole 40 MG in Sodium Chloride 0.9% 10 ML IVPUSH SCH (16:03)
[2022-02-28] MEDS: Promethazine 25 MG/ML SDV IM PRN ×2 (16:08→21:50)
[2022-02-28] MEDS: Morphine 2 MG/ML SYRINGE IVPUSH PRN ×2 (16:09→20:43)
[2022-02-28] MEDS: Ondansetron 4 MG/2 ML SDV IVPUSH PRN (18:43)
[2022-02-28] MEDS: D5%-0.9% NaCl w/ KCl 40 meq 1,000 ML IV SCH (21:42)
[2022-03-01] MEDS: Ondansetron 4 MG/2 ML SDV IVPUSH PRN ×2 (02:17→08:21)
[2022-03-01] MEDS: Morphine 2 MG/ML SYRINGE IVPUSH PRN ×4 (02:18→20:39)
[2022-03-01] MEDS: D5%-0.9% NaCl w/ KCl 40 meq 1,000 ML IV SCH ×5 (03:18→23:30)
[2022-03-01] MEDS: Promethazine 25 MG/ML SDV IM PRN (04:28)
[2022-03-01 06:48] LABS: BLOOD UREA NITROGEN,BUN 2 mg/dL (7.0-18.0); CARBON DIOXIDE,CO2 20.9 mmol/L (21.0-32.0); CHLORIDE,CL 101 mmol/L (98-107); GLUCOSE RANDOM 130 mg/dL (74-106); POTASSIUM,K 3.2 mmol/L (3.5-5.1); SODIUM,NA 137 mmol/L (136-145)
[2022-03-01] MEDS ORDERED: Metoclopramide 10 MG/2 ML SDV IVPUSH PRN (08:33)
[2022-03-01] MEDS ORDERED: Magnesium Sulfate/Water 2 GM in Premix Bag 1 BAG IV ONE (11:09)
[2022-03-01] MEDS: Gabapentin 300 MG Cap PO SCH ×2 (13:56→22:43)
[2022-03-01] MEDS: Metoclopramide 10 MG/2 ML SDV IVPUSH SCH ×2 (15:04→20:36)
[2022-03-01] MEDS: Pantoprazole 40 MG in Sodium Chloride 0.9% 10 ML IVPUSH SCH (16:30)
[2022-03-02] MEDS: Metoclopramide 10 MG/2 ML SDV IVPUSH SCH ×2 (03:21→08:54)
[2022-03-02] MEDS: Gabapentin 300 MG Cap PO SCH (06:18)
[2022-03-02 08:10] LABS: BLOOD UREA NITROGEN,BUN 1 mg/dL (7.0-18.0); CARBON DIOXIDE,CO2 22.4 mmol/L (21.0-32.0); CHLORIDE,CL 102 mmol/L (98-107); GLUCOSE RANDOM 135 mg/dL (74-106); POTASSIUM,K 4.1 mmol/L (3.5-5.1); SODIUM,NA 135 mmol/L (136-145)
== END 2022-03-02 10:00 | disposition home or self-care (01) ==
LOC: MW.ED 10:40 → MW.MS 13:46
PROVIDERS: ADMIT Student in an Organized Health Care Education/Training Program; ATTEND Student in an Organized Health Care Education/Training Program
DX: R11.2 Nausea with vomiting, unspecified (principal); E87.6 Hypokalemia; E16.2 Hypoglycemia, unspecified; R74.01 Elevation of levels of liver transaminase levels; E66.9 Obesity, unspecified; F32.A Depression, unspecified; K76.9 Liver disease, unspecified; G62.9 Polyneuropathy, unspecified; E80.7 Disorder of bilirubin metabolism, unspecified; E87.8 Other disorders of electrolyte and fluid balance, not elsewhere classified; E86.0 Dehydration; K21.9 Gastro-esophageal reflux disease without esophagitis; Z98.84 Bariatric surgery status; Z68.24 Body mass index [BMI] 24.0-24.9, adult; Z90.49 Acquired absence of other specified parts of digestive tract; Z88.2 Allergy status to sulfonamides; Z88.1 Allergy status to other antibiotic agents; Z79.899 Other long term (current) drug therapy; Z87.891 Personal history of nicotine dependence; Z20.822 Contact with and (suspected) exposure to COVID-19
CPT/HCPCS: 36415; 74177; 80048; 80053; 80143; 80179; 81001; 82140; 82607; 82947; 83690; 83735; 84100; 85025; 85610; 87635; 93005; 96365; 96366; 96372; 96375; 99285; A9270; C9113; J2270; J2405; J2550; J2765; J3475; J3480; J3490; J7030; Q9967; 96368; 96376; G0378; U0002

== ENCOUNTER 2022-06-14 15:31 | Emergency (ER) | payer BC, MEDICAID | END 2022-06-14 19:26 | disposition left against medical advice (07) | LOC: MW.ED 15:31 | DX: Z53.21 Procedure and treatment not carried out due to patient leaving prior to being seen by health care provider (principal) ==

== ENCOUNTER 2022-12-05 22:04 | Emergency (ER) | payer BC, MEDICAID ==
[2022-12-05] MEDS ORDERED: Sodium Chloride 0.9% 2.5 ML Syringe FLUSH PRN (22:12)
[2022-12-05] MEDS ORDERED: Thiamine 100 MG Tab PO ONE (22:12)
[2022-12-05] MEDS ORDERED: Folic Acid 1 MG Tab PO ONE (22:12)
[2022-12-05] MEDS ORDERED: Sodium Chloride 0.9% 10 ML Syringe FLUSH PRN (22:12)
[2022-12-05 23:11] LABS: CARBON DIOXIDE,CO2 24.6 mmol/L (21.0-32.0); POTASSIUM,K 3.9 mmol/L (3.5-5.1)
== END 2022-12-05 23:35 ==
LOC: MW.ED 22:04
DX: F10.129 Alcohol abuse with intoxication, unspecified (principal); Y90.8 Blood alcohol level of 240 mg/100 ml or more; Z88.1 Allergy status to other antibiotic agents; Z88.2 Allergy status to sulfonamides
CPT/HCPCS: 36415; 80053; 80307; 83735; 85025; 85610; 85730; 99284; A9270; 99283

== ENCOUNTER 2022-12-26 17:46 | Emergency (ER) | payer BC, MEDICAID ==
[2022-12-26] MEDS ORDERED: Sodium Chloride 0.9% 2.5 ML Syringe FLUSH PRN (18:13)
[2022-12-26] MEDS ORDERED: Sodium Chloride 0.9% 10 ML Syringe FLUSH PRN (18:13)
[2022-12-26] MEDS ORDERED: Ondansetron 4 MG/2 ML SDV IVPUSH ONE (18:14)
[2022-12-26] MEDS ORDERED: Sodium Chloride 0.9% 2,000 ML IV SCH (18:15)
[2022-12-26] MEDS ORDERED: Nitrofurantoin Monohydrate/Macrocrystalline 100 MG Cap PO ONE (19:24)
[2022-12-26 19:39] LABS: BILIRUBIN INDIRECT 0.6; CARBON DIOXIDE,CO2 23.8 mmol/L (21.0-32.0); POTASSIUM,K 4.1 mmol/L (3.5-5.1)
[2022-12-26 20:00] LABS: CORONAVIRUS COVID-19 NAA POSITIVE (NEGATIVE); INFLUENZA A NAA NEGATIVE (NEGATIVE); INFLUENZA B NAA NEGATIVE (NEGATIVE)
[2022-12-26] MEDS ORDERED: Iopamidol 755 MG/ML 500 ML Multipack Bottle IVPUSH STA (21:43)
== END 2022-12-26 22:42 | disposition home or self-care (01) ==
LOC: MW.ED 17:46
DX: U07.1 COVID-19 (principal); Z88.1 Allergy status to other antibiotic agents; Z88.2 Allergy status to sulfonamides; Z90.49 Acquired absence of other specified parts of digestive tract
CPT/HCPCS: 0240U; 36415; 74177; 80053; 81001; 82247; 82248; 83605; 83690; 85025; 96361; 96374; 99284; A9270; J2405; J3490; J7030; Q9967